=== PATIENT | female | born 1985 | race Caucasian/White ===

== ENCOUNTER 2019-08-17 07:22 | Inpatient (IN) ==
[2019-08-17] MEDS ORDERED: OXYTOCIN 30 UNITS/500 ML BAG IV PRN (07:56)
[2019-08-17] MEDS ORDERED: DINOPROSTONE 10 MG INSERT PV ONE ×2 (07:56→22:11)
[2019-08-17 08:18] LABS: Hematocrit (blood only) 37.4 % (37-47); Hemoglobin 12.7 g/dL (12.0-16.0); Mean Corpuscular Hemoglobin 30.1 pg (25-34); Mean Corpuscular Volume 88.6 fL (80-100); Mean Platelet Volume 10.1 fL (7.4-10.4); Platelet Count 250 K/uL (130-400); RDW Coefficient of Variation 14.3 % (11.5-14.5); RDW Standard Deviation 46.5 fL (36.4-46.3); Red Blood Count 4.22 M/uL (4.2-5.4); White Blood Count 12.62 K/uL (4.8-10.8)
--- NOTE | 2019-08-17 09:13 | Obstetrical Progress Note ---
Date of Service August 17, 2019 Assessment & Plan Admission and Anticipated Discharge Date Admission Date: August 17, 2019 Physical Exam Physical Exam: Admit Note 34 F P0000 at 38 weeks admitted for induction of labor for cholecystitis of and Class 3 obesity. GBS is negative. FHT Cat 1. Cervix 1/50/- 3/vertex/posterior/firm/intact. EFW 8 lbs. Cervidil 10 mg placed vaginally for cervical ripening. Results & Data ([facility]) Vital Signs (Past 12 Hours) Vital Signs Temp Pulse Resp BP 08/17/19 08:18 103 H 184/119 H 08/17/19 08:00 99 H 193/102 H 08/17/19 07:39 36.6 C 103 H 20 192/95 H
[2019-08-17 09:44] LABS: Alanine Aminotransferase 25 U/L (12-78); Albumin Level 2.6 gm/dl (3.4-5.0); Aspartate Aminotransferase 17 U/L (15-37); Bilirubin Direct < 0.1 mg/dl (0-0.2); Blood Urea Nitrogen 9 mg/dl (7-18); Calcium 8.9 mg/dl (8.5-10.1); Carbon Dioxide 21 mmol/L (21-32); Chloride 107 mmol/L (98-107); Creatinine Clr Calc Pharmacy 175.8 ml/min; Est GFR (African American) 135.6; Glucose 95 mg/dl (70-99); Potassium 3.9 mmol/L (3.5-5.1); Sodium 137 mmol/L (136-145); Uric Acid 4.5 mg/dl (2.6-7.2)
[2019-08-17 09:47] LABS: Albumin Globulin Ratio 0.6 (0.9-2); Alkaline Phosphatase 117 U/L (45-117); Bilirubin,Total 0.1 mg/dl (0.2-1); Globulin 4.1 gm/dl (2.5-4.0); Total Protein 6.7 gm/dl (6.4-8.2)
[2019-08-17] MEDS: CALCIUM CARBONATE 500 MG CHEWABLE TAB PO PRN (10:47)
[2019-08-17 11:14] LABS: Protein Creatinine Ratio Urine 0.3 (0-0.2); Total Protein Urine Random 45.8 mg/dl (0-11.9)
[2019-08-17] MEDS ORDERED: LABETALOL HCL 100 MG TAB PO SCH ×2 (14:00→21:00)
[2019-08-17] MEDS ORDERED: Nursing to Pharmacy Communication ONE (20:57)
[2019-08-17] MEDS: LABETALOL HCL 100 MG TAB PO SCH (21:19)
--- NOTE | 2019-08-17 22:27 | Obstetrical Progress Note ---
Date of Service August 17, 2019 Assessment & Plan Admission and Anticipated Discharge Date Admission Date: August 17, 2019 Subjective Pt dong well Induction for cholestasis in FHR; CAT1 Ctx; Minimmal VE; ft/post 2nd d Cervidil inserted ' Results & Data ([facility]) Vital Signs (Past 12 Hours) Vital Signs Temp Pulse Resp BP 08/17/19 21:58 86 117/61 08/17/19 21:19 92 H 186/110 H 08/17/19 21:18 99 H 190/119 H 08/17/19 19:27 36.9 C 18 08/17/19 19:26 82 170/88 H 08/17/19 18:24 36.7 C 78 20 187/108 H 08/17/19 15:00 169/89 H 08/17/19 14:59 88 175/98 H 08/17/19 13:55 79 165/101 H 08/17/19 12:57 36.7 C 76 20 186/104 H 08/17/19 11:38 36.8 C 85 171/97 H
[2019-08-18] MEDS: LABETALOL HCL 100 MG TAB PO SCH ×2 (08:56→23:04)
[2019-08-18] MEDS ORDERED: LABETALOL HCL 200 MG TAB PO SCH (09:00)
--- NOTE | 2019-08-18 10:34 | Obstetrical Progress Note ---
Date of Service August 18, 2019 Assessment & Plan Admission and Anticipated Discharge Date Admission Date: August 17, 2019 Physical Exam Genitourinary: OB Exam Abdomen: + irregular contractions Manual OB Exam: + cervical dilation 1 cm, + cervical effacement 60% and + station high OB Exam Monitor Tracing: + external FHT monitor used and + external uterine monitor used Cervidil pulled out Will allow to eat and then start PO Cytotec to continue ripening cervix Results & Data ([facility]) Vital Signs (Past 12 Hours) Vital Signs Temp Pulse Resp BP 08/18/19 09:51 97 H 155/86 H 08/18/19 07:56 36.8 C 20 08/18/19 07:33 94 H 144/87 H 08/18/19 05:23 36.6 C 18 08/18/19 04:53 83 129/67 08/18/19 03:00 36.4 C L 16 08/18/19 02:52 92 H 125/85 08/17/19 23:01 37.0 C 18
[2019-08-18] MEDS: miSOPROStoL 50 MCG TAB PO SCH ×3 (13:13→21:54)
[2019-08-18] MEDS ORDERED: COUGH DROP (SUGAR FREE) LOZ 24 LOZ/1 BOX BUCCAL ONE (17:34)
[2019-08-18] MEDS: ACETAMINOPHEN 500 MG TAB PO PRN ×2 (19:33→23:04)
[2019-08-19] MEDS: miSOPROStoL 50 MCG TAB PO SCH ×2 (03:32→03:42)
[2019-08-19] MEDS ORDERED: OXYTOCIN 30 UNITS/500 ML BAG IV PRN (08:22)
[2019-08-19] MEDS: LACTATED RINGER'S 1,000 ML IV PRN ×3 (09:28→19:26)
--- NOTE | 2019-08-19 09:29 | Obstetrical Progress Note ---
Date of Service August 19, 2019 Assessment & Plan Admission and Anticipated Discharge Date Admission Date: August 17, 2019 Physical Exam Genitourinary: OB Exam Abdomen: + vertex Manual OB Exam: + cervical dilation 2 cm and + cervical effacement 70% OB Exam Monitor Tracing: + external FHT monitor used, + external uterine monitor used, + category I and + normal FHT variability will start Oxytocin now with cervix no ripe Results & Data ([facility]) Vital Signs (Past 12 Hours) Vital Signs Temp Pulse Resp BP 08/19/19 09:19 88 142/86 H 08/19/19 07:17 93 H 134/81 08/19/19 04:35 36.6 C 76 18 151/83 H 08/18/19 23:01 80 135/68 08/18/19 23:00 36.4 C L
[2019-08-19] MEDS: LABETALOL HCL 100 MG TAB PO SCH ×2 (09:36→22:28)
--- NOTE | 2019-08-19 14:35 | Obstetrical Progress Note ---
Date of Service August 19, 2019 Assessment & Plan Admission and Anticipated Discharge Date Admission Date: August 17, 2019 Physical Exam Genitourinary: Manual OB Exam: + cervical dilation 2 cm, + cervical effacement 70%, + station -2 and + amniotic fluid clear OB Exam Monitor Tracing: + external FHT monitor used, + scalp electrode used, + external uterine monitor used, + category I and + normal FHT variability AROM with scalp lead due to inability to keep baby on monitor due to body habitus. Will continue with Oxytocin. plans for epidural. Results & Data ([facility]) Vital Signs (Past 12 Hours) Vital Signs Temp Pulse Resp BP 08/19/19 13:34 85 178/84 H 08/19/19 12:50 18 08/19/19 11:31 82 18 154/88 H 08/19/19 10:50 18 08/19/19 10:45 85 164/91 H 08/19/19 10:00 18 08/19/19 09:19 88 142/86 H 08/19/19 09:08 18 08/19/19 07:17 93 H 134/81 08/19/19 04:35 36.6 C 76 18 151/83 H
[2019-08-19] MEDS ORDERED: BUPIVACAINE 0.25% 30 ML VIAL ONE (16:12)
[2019-08-19] MEDS ORDERED: ePHEDrine sulfate 50 MG/ML AMP ONE (16:12)
[2019-08-19] MEDS ORDERED: fentaNYL citrate 100 MCG/2 ML VIAL ONE (16:12)
[2019-08-19] MEDS ORDERED: fentaNYL 2MCG/ML ROPIV 1.25MG/ML 100 ML BAG EPI ONE (16:13)
--- NOTE | 2019-08-19 17:06 | Anesthesiology Consultation ---
Date of Service August 19, 2019 Assessment & Plan (1) Encounter for pre-operative examination: Chart Review Chart Review: Patient NOT seen in Pre Admission Testing and Acceptable Risk for Labor Epidural Consults Requested none ASA ASA2 Proposed Anesthesia Anesthesia Type: Labor Epidural Risk / Benefits Reviewed With: PT / POA / Parent / Guardian, Accepts Plan and Informed Consent Obtained History Height/Weight Height: 5 ft 7 in Weight: 128.82 kg Allergies Allergy/AdvReac Type Severity Reaction Status Date / Time No Known Allergies Allergy Verified 08/17/19 08:09 Medications Home Medications Medication Instructions Recorded Confirmed Last Taken vit-iron fum-folic ac 1 tab PO DAILY 08/17/19 08/17/19 08/17/19 [ Vitamin] ursodiol 300 mg PO BID 08/17/19 08/17/19 08/17/19 07:00 Active Medications Generic Name Dose Route Start Last Admin Trade Name Freq PRN Reason Stop Dose Admin Acetaminophen 500 mg 08/18/19 19:10 08/18/19 23:04 Tylenol PO 09/17/19 19:09 500 mg Q4H PRN Administration Headache Calcium Carbonate 500 mg 08/17/19 09:00 08/17/19 10:47 Tums PO 09/16/19 08:59 500 mg Q2H PRN Administration Indigestion Lactated Ringer's 1,000 mls @ 125 mls/hr 08/17/19 07:56 08/19/19 17:03 Lr IV 08/20/19 07:55 125 mls/hr .Q8H PRN Infusion L&D Protocol Protocol Oxytocin 30 units in 500 mls @ 11 mls/hr 08/19/19 08:22 08/19/19 14:35 Pitocin IV 08/21/19 08:21 0.66 units/hr .Q24H PRN 11 mls/hr Labor Induction/Augmentation Titration Protocol 0.66 UNITS/HR Labetalol HCl 200 mg 08/17/19 21:15 08/19/19 09:36 Normodyne PO 09/17/19 09:01 200 mg BID REBEL Administration Misoprostol 50 mcg 08/18/19 11:00 08/19/19 03:42 Cytotec PO 09/17/19 10:59 Not Given Q4H REBEL NPO Date Last Intake of Fluids: 08/19/19 Time Last Intake of Fluids: 17:02 Date Last Intake of Solids: 08/19/19 Time Last Intake of Solids: 09:00 Past Medical History Medical History Cholestasis during Polycystic disease, ovaries Exercise / Class Metabolic Activity II 4-5 Yardwork/Stairs/Walk up hill Past Surgical History Surgical History History of tonsillectomy Past Anesthesia History No Hx of Anesthesia Complications History of PONV No Hx of PONV Social History Smoking Status: Former smoker Hx Alcohol Use: No Hx Substance Use: No Review of Systems Patient denies history of abnormal bleeding or bleeding disorder. Patient denies active use of anticoagulants other than low dose aspirin. Patient denies numbness, tingling or weakness in lower extremities. Physical Exam Vital Signs Last Vital Signs Temp 36.5 C 08/19/19 17:00 Pulse 82 08/19/19 16:59 Resp 18 08/19/19 17:00 BP 189/104 H 08/19/19 16:59 Pulse Ox 98 08/19/19 16:59 Constitutional + morbidly obese (Gravid uterus) and + obese ENMT Mouth: no TMJ abnormality and oral opening not small Thyromental Distance: > or= 3.5 Finger Breadths Mallampati Class: III Mouth / Teeth: 1. Worn down Neck normal visual inspection; neck extension not limited Respiratory normal respiratory effort Auscultation: lungs clear to auscultation bilaterally Cardiovascular Rate/Rhythm: regular rate and regular rhythm Heart Sounds: no murmur Neurologic moves all extremities Psychiatric Orientation: alert and oriented x 3 Testing Laboratory Results 08/17/19 08:04 08/17/19 09:11
[2019-08-19] MEDS ORDERED: NALOXONE HCL 1 MG in SODIUM CHLORIDE 0.9% 1000ML 1,000 ML IV PRN (18:00)
[2019-08-19] MEDS ORDERED: NALBUPHINE HCL INJ 10 MG/ML AMP IV PRN (18:00)
[2019-08-19] MEDS ORDERED: ONDANSETRON INJ 2 MG/ML 2 ML VIAL IV PRN (18:00)
[2019-08-19] MEDS ORDERED: fentaNYL 2MCG/ML ROPIV 1.25MG/ML 100 ML BAG EPI PRN (18:00)
[2019-08-19] MEDS ORDERED: DiphenhydrAMINE HCL 50 MG/ML VIAL IV PRN (18:00)
[2019-08-19] MEDS ORDERED: NALOXONE HCL 0.4 MG/1 ML VIAL/CARP IV PRN (18:00)
[2019-08-19] MEDS ORDERED: ePHEDrine sulfate 50 MG/ML AMP IV PRN (18:00)
[2019-08-19] MEDS: CALCIUM CARBONATE 500 MG CHEWABLE TAB PO PRN (18:21)
--- NOTE | 2019-08-19 18:42 | Obstetrical Progress Note ---
Date of Service August 19, 2019 Assessment & Plan Admission and Anticipated Discharge Date Admission Date: August 17, 2019 Physical Exam Genitourinary: Manual OB Exam: + cervical dilation 3 cm, + cervical effacement 90%, + station -2 and + amniotic fluid clear OB Exam Monitor Tracing: + scalp electrode used, + external uterine monitor used, + category I and + normal FHT variability Results & Data ([facility]) Vital Signs (Past 12 Hours) Vital Signs Temp Pulse Resp BP Pulse Ox 08/19/19 18:39 81 100 08/19/19 18:34 80 98 08/19/19 18:29 73 99 08/19/19 18:28 78 135/85 08/19/19 18:24 86 98 08/19/19 18:19 75 100 08/19/19 18:14 82 99 08/19/19 18:12 77 140/83 08/19/19 18:09 81 140/80 99 08/19/19 18:05 77 139/82 08/19/19 18:04 81 99 08/19/19 18:03 78 139/83 08/19/19 18:00 77 137/85 08/19/19 17:59 78 100 08/19/19 17:57 81 132/82 08/19/19 17:54 79 141/87 H 98 08/19/19 17:51 82 144/77 H 08/19/19 17:49 85 99 08/19/19 17:48 96 H 111/75 08/19/19 17:45 82 177/95 H 08/19/19 17:44 83 98 08/19/19 17:42 90 180/96 H 08/19/19 17:39 81 99 08/19/19 17:38 79 182/104 H 08/19/19 17:34 82 99 08/19/19 17:29 79 98 08/19/19 17:24 79 98 08/19/19 17:19 85 100 08/19/19 17:14 88 99 08/19/19 17:09 91 H 99 08/19/19 17:04 88 99 08/19/19 17:00 36.5 C 18 08/19/19 16:59 82 189/104 H 98 08/19/19 16:54 82 99 08/19/19 16:48 86 100 08/19/19 16:43 84 100 08/19/19 16:38 88 99 08/19/19 14:37 88 192/95 H 08/19/19 14:30 36.6 C 18 08/19/19 13:34 85 178/84 H 08/19/19 12:50 18 08/19/19 11:31 82 18 154/88 H 08/19/19 10:50 18 08/19/19 10:45 85 164/91 H 08/19/19 10:00 18 08/19/19 09:19 88 142/86 H 08/19/19 09:08 18 08/19/19 07:17 93 H 134/81
--- NOTE | 2019-08-19 21:08 | Obstetrical Progress Note ---
Date of Service August 19, 2019 Assessment & Plan Admission and Anticipated Discharge Date Admission Date: August 17, 2019 Physical Exam Genitourinary: Manual OB Exam: + cervical dilation 4 cm, + cervical effacement 90%, + station -2 and + amniotic fluid clear OB Exam Monitor Tracing: + scalp electrode used, + external uterine monitor used and + category I Results & Data ([facility]) Vital Signs (Past 12 Hours) Vital Signs Temp Pulse Resp BP Pulse Ox 08/19/19 21:04 87 99 08/19/19 20:59 74 100 08/19/19 20:57 74 148/70 H 08/19/19 20:54 83 100 08/19/19 20:49 72 100 08/19/19 20:44 78 100 08/19/19 20:42 78 140/67 08/19/19 20:39 74 100 08/19/19 20:34 72 100 08/19/19 20:29 77 100 08/19/19 20:27 74 132/67 08/19/19 20:24 74 100 08/19/19 20:19 74 100 08/19/19 20:14 70 100 08/19/19 20:12 72 151/72 H 08/19/19 20:09 72 100 08/19/19 20:04 70 100 08/19/19 19:59 72 100 08/19/19 19:57 71 144/70 H 08/19/19 19:54 77 100 08/19/19 19:49 74 100 08/19/19 19:44 80 100 08/19/19 19:42 74 143/70 H 08/19/19 19:39 76 100 08/19/19 19:34 70 100 08/19/19 19:29 79 100 08/19/19 19:27 75 138/67 08/19/19 19:24 80 100 08/19/19 19:19 99 H 98 08/19/19 19:14 81 100 08/19/19 19:12 71 142/70 H 08/19/19 19:09 77 97 08/19/19 19:04 89 98 08/19/19 19:00 36.5 C 18 08/19/19 18:59 81 98 08/19/19 18:57 73 144/86 H 08/19/19 18:54 78 100 08/19/19 18:49 75 99 08/19/19 18:44 89 100 08/19/19 18:43 73 140/85 08/19/19 18:39 81 100 08/19/19 18:34 80 98 08/19/19 18:29 73 99 08/19/19 18:28 78 135/85 08/19/19 18:24 86 98 08/19/19 18:19 75 100 08/19/19 18:14 82 99 08/19/19 18:12 77 140/83 08/19/19 18:09 81 140/80 99 08/19/19 18:05 77 139/82 08/19/19 18:04 81 99 08/19/19 18:03 78 139/83 08/19/19 18:00 77 137/85 08/19/19 17:59 78 100 08/19/19 17:57 81 132/82 08/19/19 17:54 79 141/87 H 98 08/19/19 17:51 82 144/77 H 08/19/19 17:49 85 99 08/19/19 17:48 96 H 111/75 08/19/19 17:45 82 177/95 H 08/19/19 17:44 83 98 08/19/19 17:42 90 180/96 H 08/19/19 17:39 81 99 08/19/19 17:38 79 182/104 H 08/19/19 17:34 82 99 08/19/19 17:29 79 98 08/19/19 17:24 79 98 08/19/19 17:19 85 100 08/19/19 17:14 88 99 08/19/19 17:09 91 H 99 08/19/19 17:04 88 99 08/19/19 17:00 36.5 C 18 08/19/19 16:59 82 189/104 H 98 08/19/19 16:54 82 99 08/19/19 16:48 86 100 08/19/19 16:43 84 100 08/19/19 16:38 88 99 08/19/19 14:37 88 192/95 H 08/19/19 14:30 36.6 C 18 08/19/19 13:34 85 178/84 H 08/19/19 12:50 18 08/19/19 11:31 82 18 154/88 H 08/19/19 10:50 18 08/19/19 10:45 85 164/91 H 08/19/19 10:00 18 08/19/19 09:19 88 142/86 H 08/19/19 09:08 18
--- NOTE | 2019-08-19 23:32 | Obstetrical Progress Note ---
Date of Service August 19, 2019 Assessment & Plan Admission and Anticipated Discharge Date Admission Date: August 17, 2019 Physical Exam Genitourinary: Manual OB Exam: + cervical dilation 4 cm and 5 cm, + cervical effacement 90%, + station -2 and + amniotic fluid clear OB Exam Monitor Tracing: + scalp electrode used, + intra-uterine pressure catheter used and + category I IUPC inserted to better monitor contractions Results & Data ([facility]) Vital Signs (Past 12 Hours) Vital Signs Temp Pulse Resp BP Pulse Ox 08/19/19 23:29 107 H 97 08/19/19 23:24 78 98 08/19/19 23:19 77 97 08/19/19 23:14 80 96 08/19/19 23:12 74 133/63 08/19/19 23:09 78 96 08/19/19 23:04 78 99 08/19/19 22:59 88 99 08/19/19 22:57 74 131/58 L 08/19/19 22:54 90 99 08/19/19 22:49 80 96 08/19/19 22:44 80 98 08/19/19 22:42 85 151/70 H 08/19/19 22:39 88 98 08/19/19 22:34 80 98 08/19/19 22:29 84 98 08/19/19 22:27 79 153/72 H 08/19/19 22:24 85 98 08/19/19 22:19 82 100 08/19/19 22:14 83 97 08/19/19 22:13 84 145/70 H 08/19/19 22:09 80 98 08/19/19 22:04 83 98 08/19/19 21:59 78 98 08/19/19 21:57 83 145/70 H 08/19/19 21:54 81 97 08/19/19 21:49 78 98 08/19/19 21:44 77 98 08/19/19 21:42 88 144/67 H 08/19/19 21:39 93 H 98 08/19/19 21:34 77 99 08/19/19 21:29 74 99 08/19/19 21:27 78 139/63 08/19/19 21:24 78 99 08/19/19 21:19 78 99 08/19/19 21:14 73 99 08/19/19 21:12 68 138/58 L 08/19/19 21:09 75 99 08/19/19 21:04 87 99 08/19/19 21:00 36.9 C 18 08/19/19 20:59 74 100 08/19/19 20:57 74 148/70 H 08/19/19 20:54 83 100 08/19/19 20:49 72 100 08/19/19 20:44 78 100 08/19/19 20:42 78 140/67 08/19/19 20:39 74 100 08/19/19 20:34 72 100 08/19/19 20:29 77 100 08/19/19 20:27 74 132/67 08/19/19 20:24 74 100 08/19/19 20:19 74 100 08/19/19 20:14 70 100 08/19/19 20:12 72 151/72 H 08/19/19 20:09 72 100 08/19/19 20:04 70 100 08/19/19 19:59 72 100 08/19/19 19:57 71 144/70 H 08/19/19 19:54 77 100 08/19/19 19:49 74 100 08/19/19 19:44 80 100 08/19/19 19:42 74 143/70 H 08/19/19 19:39 76 100 08/19/19 19:34 70 100 08/19/19 19:29 79 100 08/19/19 19:27 75 138/67 08/19/19 19:24 80 100 08/19/19 19:19 99 H 98 08/19/19 19:14 81 100 08/19/19 19:12 71 142/70 H 08/19/19 19:09 77 97 08/19/19 19:04 89 98 08/19/19 19:00 36.5 C 18 08/19/19 18:59 81 98 08/19/19 18:57 73 144/86 H 08/19/19 18:54 78 100 08/19/19 18:49 75 99 08/19/19 18:44 89 100 08/19/19 18:43 73 140/85 08/19/19 18:39 81 100 08/19/19 18:34 80 98 08/19/19 18:29 73 99 08/19/19 18:28 78 135/85 08/19/19 18:24 86 98 08/19/19 18:19 75 100 08/19/19 18:14 82 99 08/19/19 18:12 77 140/83 08/19/19 18:09 81 140/80 99 08/19/19 18:05 77 139/82 08/19/19 18:04 81 99 08/19/19 18:03 78 139/83 08/19/19 18:00 77 137/85 08/19/19 17:59 78 100 08/19/19 17:57 81 132/82 08/19/19 17:54 79 141/87 H 98 08/19/19 17:51 82 144/77 H 08/19/19 17:49 85 99 08/19/19 17:48 96 H 111/75 08/19/19 17:45 82 177/95 H 08/19/19 17:44 83 98 08/19/19 17:42 90 180/96 H 08/19/19 17:39 81 99 08/19/19 17:38 79 182/104 H 08/19/19 17:34 82 99 08/19/19 17:29 79 98 08/19/19 17:24 79 98 08/19/19 17:19 85 100 08/19/19 17:14 88 99 08/19/19 17:09 91 H 99 08/19/19 17:04 88 99 08/19/19 17:00 36.5 C 18 08/19/19 16:59 82 189/104 H 98 08/19/19 16:54 82 99 08/19/19 16:48 86 100 08/19/19 16:43 84 100 08/19/19 16:38 88 99 08/19/19 14:37 88 192/95 H 08/19/19 14:30 36.6 C 18 08/19/19 13:34 85 178/84 H 08/19/19 12:50 18
[2019-08-20] MEDS ORDERED: Nursing to Pharmacy Communication ONE ×2 (00:10→02:01)
[2019-08-20] MEDS ORDERED: BUPIVACAINE 0.25% 30 ML VIAL ONE (01:14)
[2019-08-20] MEDS: LACTATED RINGER'S 1,000 ML IV PRN (01:32)
--- NOTE | 2019-08-20 01:38 | Communication Note ---
Date of Service: August 20, 2019 Epidural dosed for increasing pain in pelvis with contractions. Good sensory level to ice, but significantly worse on the non dependent side. Patient recommended to flip to opposite side. Epidural redosed with 10cc of 0.125% bupivicane by hand. Epidural lockout time decreased. She did moderately improve her pain. Patient entering transitional phase, management per OB.
--- NOTE | 2019-08-20 01:58 | Obstetrical Progress Note ---
Date of Service August 20, 2019 Assessment & Plan Admission and Anticipated Discharge Date Admission Date: August 17, 2019 Physical Exam Genitourinary: Manual OB Exam: + cervical dilation 9 cm, + cervical effacement 100%, + station 0 and + amniotic fluid clear OB Exam Monitor Tracing: + scalp electrode used, + intra-uterine pressure catheter used and + category I internal scalp monitor re-applied due to 1st lead coming off Results & Data ([facility]) Vital Signs (Past 12 Hours) Vital Signs Temp Pulse Resp BP Pulse Ox 08/20/19 01:55 83 158/83 H 08/20/19 01:54 84 100 08/20/19 01:52 77 161/85 H 08/20/19 01:49 78 157/72 H 96 08/20/19 01:46 77 150/67 H 08/20/19 01:44 80 94 08/20/19 01:43 85 149/74 H 08/20/19 01:40 85 153/76 H 08/20/19 01:39 86 100 08/20/19 01:37 82 152/77 H 08/20/19 01:34 93 H 98 08/20/19 01:31 82 161/82 H 08/20/19 01:29 95 H 95 08/20/19 01:28 92 H 162/81 H 08/20/19 01:25 90 162/94 H 08/20/19 01:24 88 97 08/20/19 01:22 95 H 165/86 H 08/20/19 01:19 98 H 155/78 H 98 08/20/19 01:17 95 H 87 L 08/20/19 01:16 91 H 180/89 H 08/20/19 01:14 95 H 96 08/20/19 01:12 90 181/93 H 08/20/19 01:09 90 95 08/20/19 01:04 85 96 08/20/19 00:59 102 H 168/85 H 98 08/20/19 00:56 87 94 08/20/19 00:54 109 H 97 08/20/19 00:51 87 94 08/20/19 00:49 100 H 97 08/20/19 00:44 87 181/83 H 95 08/20/19 00:39 93 H 97 08/20/19 00:34 104 H 98 08/20/19 00:29 87 97 08/20/19 00:28 87 178/80 H 08/20/19 00:24 103 H 99 08/20/19 00:19 87 98 08/20/19 00:14 92 H 97 08/20/19 00:12 89 145/85 H 08/20/19 00:09 93 H 98 08/20/19 00:04 90 98 08/19/19 23:59 86 97 08/19/19 23:57 85 138/79 08/19/19 23:54 81 96 08/19/19 23:49 92 H 99 08/19/19 23:44 91 H 98 08/19/19 23:43 36.9 C 18 08/19/19 23:42 93 H 145/73 H 08/19/19 23:39 82 96 08/19/19 23:34 86 96 08/19/19 23:29 107 H 97 08/19/19 23:24 78 98 08/19/19 23:19 77 97 08/19/19 23:14 80 96 08/19/19 23:12 74 133/63 08/19/19 23:09 78 96 08/19/19 23:04 78 99 08/19/19 22:59 88 99 08/19/19 22:57 74 131/58 L 08/19/19 22:54 90 99 08/19/19 22:49 80 96 08/19/19 22:44 80 98 08/19/19 22:42 85 151/70 H 08/19/19 22:39 88 98 08/19/19 22:34 80 98 08/19/19 22:29 84 98 08/19/19 22:27 79 153/72 H 08/19/19 22:24 85 98 08/19/19 22:19 82 100 08/19/19 22:14 83 97 08/19/19 22:13 84 145/70 H 08/19/19 22:09 80 98 08/19/19 22:04 83 98 08/19/19 21:59 78 98 08/19/19 21:57 83 145/70 H 08/19/19 21:54 81 97 08/19/19 21:49 78 98 08/19/19 21:44 77 98 08/19/19 21:42 88 144/67 H 08/19/19 21:39 93 H 98 08/19/19 21:34 77 99 08/19/19 21:29 74 99 08/19/19 21:27 78 139/63 08/19/19 21:24 78 99 08/19/19 21:19 78 99 08/19/19 21:14 73 99 08/19/19 21:12 68 138/58 L 08/19/19 21:09 75 99 08/19/19 21:04 87 99 08/19/19 21:00 36.9 C 18 08/19/19 20:59 74 100 08/19/19 20:57 74 148/70 H 08/19/19 20:54 83 100 08/19/19 20:49 72 100 08/19/19 20:44 78 100 08/19/19 20:42 78 140/67 08/19/19 20:39 74 100 08/19/19 20:34 72 100 08/19/19 20:29 77 100 08/19/19 20:27 74 132/67 08/19/19 20:24 74 100 08/19/19 20:19 74 100 08/19/19 20:14 70 100 08/19/19 20:12 72 151/72 H 08/19/19 20:09 72 100 08/19/19 20:04 70 100 08/19/19 19:59 72 100 08/19/19 19:57 71 144/70 H 08/19/19 19:54 77 100 08/19/19 19:49 74 100 08/19/19 19:44 80 100 08/19/19 19:42 74 143/70 H 08/19/19 19:39 76 100 08/19/19 19:34 70 100 08/19/19 19:29 79 100 08/19/19 19:27 75 138/67 08/19/19 19:24 80 100 08/19/19 19:19 99 H 98 08/19/19 19:14 81 100 08/19/19 19:12 71 142/70 H 08/19/19 19:09 77 97 08/19/19 19:04 89 98 08/19/19 19:00 36.5 C 18 08/19/19 18:59 81 98 08/19/19 18:57 73 144/86 H 08/19/19 18:54 78 100 08/19/19 18:49 75 99 08/19/19 18:44 89 100 08/19/19 18:43 73 140/85 08/19/19 18:39 81 100 08/19/19 18:34 80 98 08/19/19 18:29 73 99 08/19/19 18:28 78 135/85 08/19/19 18:24 86 98 08/19/19 18:19 75 100 08/19/19 18:14 82 99 08/19/19 18:12 77 140/83 08/19/19 18:09 81 140/80 99 08/19/19 18:05 77 139/82 08/19/19 18:04 81 99 08/19/19 18:03 78 139/83 08/19/19 18:00 77 137/85 08/19/19 17:59 78 100 08/19/19 17:57 81 132/82 08/19/19 17:54 79 141/87 H 98 08/19/19 17:51 82 144/77 H 08/19/19 17:49 85 99 08/19/19 17:48 96 H 111/75 08/19/19 17:45 82 177/95 H 08/19/19 17:44 83 98 08/19/19 17:42 90 180/96 H 08/19/19 17:39 81 99 08/19/19 17:38 79 182/104 H 08/19/19 17:34 82 99 08/19/19 17:29 79 98 08/19/19 17:24 79 98 08/19/19 17:19 85 100 08/19/19 17:14 88 99 08/19/19 17:09 91 H 99 08/19/19 17:04 88 99 08/19/19 17:00 36.5 C 18 08/19/19 16:59 82 189/104 H 98 08/19/19 16:54 82 99 08/19/19 16:48 86 100 08/19/19 16:43 84 100 08/19/19 16:38 88 99 08/19/19 14:37 88 192/95 H 08/19/19 14:30 36.6 C 18
--- NOTE | 2019-08-20 06:33 | Delivery Summary ---
Vaginal Delivery Summary Date of Service August 20, 2019 Vaginal Delivery Summary Delivery Note live female over intact perineum with nuchal cord x1 reduced at delivery. Apgars 8/9 with weight pending. Cord blood obtained followed by spontaneous delivery of intact placenta. No tears. EBL 100 ml. Final sponge and instrument count are correct. Mom and baby stable.
[2019-08-20] MEDS ORDERED: BENZOCAINE 20% AER SPR 82.5 GM CAN EXT PRN (06:38)
[2019-08-20] MEDS ORDERED: HYDROCORTISONE ACETATE 25 MG SUPP PR PRN (06:38)
[2019-08-20] MEDS ORDERED: DIPHTHERIA/TETANUS/PERTUSSIS 0.5 ML SYR/VIAL IM ONE (06:38)
[2019-08-20] MEDS ORDERED: OXYTOCIN 30 UNITS/500 ML BAG IV PRN (06:38)
[2019-08-20] MEDS ORDERED: SUPERCREAM 0.870% 15 GM JAR EXT PRN (06:38)
[2019-08-20] MEDS ORDERED: ACETAMINOPHEN 325 MG TAB PO PRN (06:38)
[2019-08-20] MEDS: DOCUSATE SODIUM 100 MG CAP PO SCH ×2 (08:17→21:13)
[2019-08-20] MEDS: FERROUS SULFATE 325 MG TAB PO SCH (08:17)
[2019-08-20] MEDS: PRENATAL VITAMIN 1 TAB PO SCH (08:17)
--- NOTE | 2019-08-20 08:22 | Anesthesia Procedure Note ---
Date of Service August 20, 2019 Anesthesia Post Epidural Note Vital Signs Vital Signs: Temp Pulse Resp BP Pulse Ox 36.8 C 103 H 20 165/80 H 96 08/20/19 04:04 08/20/19 08:14 08/20/19 07:59 08/20/19 08:14 08/20/19 06:19 Pain Intensity Abdomen: Pain Intensity: 1 Notes Mental Status: alert / awake / arousable and participated in evaluation Nausea / Vomiting: adequately controlled Pain: adequately controlled Airway Patency, RR, SpO2: stable & adequate BP & HR: stable & adequate Hydration State: stable & adequate Neuraxial Anesthesia: was administered and sensory block is resolving Anesthetic Complications: no major complications apparent and Pt Satisfied with anesthetic care Epidural: Removed without complications and With tip intact
[2019-08-20] MEDS ORDERED: NON-FORMULARY MEDICATION (Prenatal Vit-Iron Fum-Folic Ac [Prenatal Vitamin] 1 TAB) PO SCH (09:00)
[2019-08-20] MEDS: LABETALOL HCL 100 MG TAB PO SCH ×3 (09:11→21:12)
[2019-08-20] MEDS: IBUPROFEN 600 MG TAB PO PRN (22:39)
[2019-08-21 06:08] LABS: Hematocrit (blood only) 29.7 % (37-47); Hemoglobin 9.9 g/dL (12.0-16.0); Mean Corpuscular Hgb Conc 33.3 g/dL (32-36); Mean Platelet Volume 9.8 fL (7.4-10.4); Platelet Count 175 K/uL (130-400); RDW Coefficient of Variation 14.7 % (11.5-14.5); RDW Standard Deviation 48.1 fL (36.4-46.3)
[2019-08-21] MEDS: PRENATAL VITAMIN 1 TAB PO SCH (08:32)
[2019-08-21] MEDS: DOCUSATE SODIUM 100 MG CAP PO SCH ×2 (08:32→20:08)
[2019-08-21] MEDS: LABETALOL HCL 100 MG TAB PO SCH ×2 (08:33→20:08)
[2019-08-21] MEDS: IBUPROFEN 600 MG TAB PO PRN ×4 (08:33→21:43)
--- NOTE | 2019-08-21 08:35 | Obstetrical Progress Note ---
Date of Service August 21, 2019 Assessment & Plan Admission and Anticipated Discharge Date Admission Date: August 17, 2019 Subjective Patient is seen and examined. She feels well, no complaints. Ambulating without dizziness Voiding without difficulty Tolerating regular diet with out N&V Bleeding is minimal No fever/ chills/ CP/ SOB/ N&V/ Leg pain/ [place]/ Chnage in vision Breast feeding without problems Vital Signs Temp Pulse Resp BP 08/21/19 04:15 36.6 C 83 18 133/88 08/20/19 23:15 36.5 C 92 H 18 152/84 H Lab Results 08/17/19 08/17/19 08/17/19 Range/Units 08:04 09:11 09:11 WBC 12.62 H (4.8-10.8) K/uL RBC 4.22 (4.2-5.4) M/uL Hgb 12.7 (12.0-16.0) g/dL Hct 37.4 (37-47) % MCV 88.6 (80-100) fL MCH 30.1 (25-34) pg MCHC 34.0 (32-36) g/dL RDW Std Deviation 46.5 H (36.4-46.3) fL RDW Coeff of Steve 14.3 (11.5-14.5) % Plt Count 250 (130-400) K/uL MPV 10.1 (7.4-10.4) fL Sodium 137 (136-145) mmol/L Potassium 3.9 (3.5-5.1) mmol/L Chloride 107 (98-107) mmol/L Carbon Dioxide 21 (21-32) mmol/L Anion Gap 9.0 (3-11) BUN 9 (7-18) mg/dl Creatinine 0.63 (0.6-1.2) mg/dl Est Cr Clr Drug Dosing 175.8 ml/min Est GFR ( Amer) 135.6 Est GFR (Non-Af Amer) 117.0 BUN/Creatinine Ratio 14.0 (10-20) Glucose 95 (70-99) mg/dl Uric Acid 4.5 (2.6-7.2) mg/dl Calcium 8.9 (8.5-10.1) mg/dl Total Bilirubin 0.1 L (0.2-1) mg/dl Direct Bilirubin < 0.1 (0-0.2) mg/dl AST 17 (15-37) U/L ALT 25 (12-78) U/L Alkaline Phosphatase 117 (45-117) U/L Lactate Dehydrogenase 181 (84-246) U/L Total Protein 6.7 (6.4-8.2) gm/dl Albumin 2.6 L (3.4-5.0) gm/dl Globulin 4.1 H (2.5-4.0) gm/dl Albumin/Globulin Ratio 0.6 L (0.9-2) Ur Random Creatinine mg/dl U Random Total Protein (0-11.9) mg/dl Protein/Creatinin Ratio (0-0.2) 08/17/19 08/21/19 Range/Units 10:20 05:45 WBC 11.10 H (4.8-10.8) K/uL RBC 3.30 L (4.2-5.4) M/uL Hgb 9.9 L (12.0-16.0) g/dL Hct 29.7 L (37-47) % MCV 90.0 (80-100) fL MCH 30.0 (25-34) pg MCHC 33.3 (32-36) g/dL RDW Std Deviation 48.1 H (36.4-46.3) fL RDW Coeff of Steve 14.7 H (11.5-14.5) % Plt Count 175 (130-400) K/uL MPV 9.8 (7.4-10.4) fL Sodium (136-145) mmol/L Potassium (3.5-5.1) mmol/L Chloride (98-107) mmol/L Carbon Dioxide (21-32) mmol/L Anion Gap (3-11) BUN (7-18) mg/dl Creatinine (0.6-1.2) mg/dl Est Cr Clr Drug Dosing ml/min Est GFR ( Amer) Est GFR (Non-Af Amer) BUN/Creatinine Ratio (10-20) Glucose (70-99) mg/dl Uric Acid (2.6-7.2) mg/dl Calcium (8.5-10.1) mg/dl Total Bilirubin (0.2-1) mg/dl Direct Bilirubin (0-0.2) mg/dl AST (15-37) U/L ALT (12-78) U/L Alkaline Phosphatase (45-117) U/L Lactate Dehydrogenase (84-246) U/L Total Protein (6.4-8.2) gm/dl Albumin (3.4-5.0) gm/dl Globulin (2.5-4.0) gm/dl Albumin/Globulin Ratio (0.9-2) Ur Random Creatinine 137.0 mg/dl U Random Total Protein 45.8 H (0-11.9) mg/dl Protein/Creatinin Ratio 0.3 H (0-0.2) PE: General: Alert, orientedx3, NAD Abd: soft, NT, fundus firm, below Umbilicus Perineum intact, Lochia rubra minimal Ext; NT, no edema AP: 34 yo s/p , ppd# 1 VSS Afebrile doing well Continue routine care All questions were answered D/C home tomorrow Results & Data ([facility]) Vital Signs (Past 12 Hours) Vital Signs Temp Pulse Resp BP 08/21/19 04:15 36.6 C 83 18 133/88 08/20/19 23:15 36.5 C 92 H 18 152/84 H
[2019-08-21] MEDS: FERROUS SULFATE 325 MG TAB PO SCH (08:37)
[2019-08-21] MEDS ORDERED: bisacodyL 5 MG TABEC PO SCH (20:00)
[2019-08-22 07:25] LABS: Hematocrit (blood only) 30.3 % (37-47)
[2019-08-22] MEDS: DOCUSATE SODIUM 100 MG CAP PO SCH (08:21)
[2019-08-22] MEDS: FERROUS SULFATE 325 MG TAB PO SCH (08:21)
[2019-08-22] MEDS: PRENATAL VITAMIN 1 TAB PO SCH (08:21)
[2019-08-22] MEDS: LABETALOL HCL 100 MG TAB PO SCH (08:22)
--- NOTE | 2019-08-22 08:42 | Obstetrical Progress Note ---
Date of Service August 22, 2019 Assessment & Plan Admission and Anticipated Discharge Date Admission Date: August 17, 2019 Physical Exam Physical Exam: abdomen soft and non tender no calf tenderness ambulating well vaginal bleeding scant hgb 10.0 Results & Data ([facility]) Vital Signs (Past 12 Hours) Vital Signs Temp Pulse Resp BP Pulse Ox 08/22/19 07:25 36.6 C 90 18 140/91 99 08/22/19 00:05 36.8 C 88 16 118/72
[2019-08-22] MEDS ORDERED: bisacodyL 10 MG SUPP PR PRN (09:00)
== END 2019-08-22 11:20 | disposition home or self-care (01) | DRG 807 ==
LOC: 4S1 07:22 → 4S2 08-20 12:25

== ENCOUNTER 2020-01-07 03:59 | Observation (INO) ==
[2020-01-07] MEDS ORDERED: ONDANSETRON INJ 2 MG/ML 2 ML VIAL IV STA (04:27)
[2020-01-07] MEDS ORDERED: KETOROLAC TROMETHAMINE 15 MG/ML VIAL IV STA (04:27)
--- NOTE | 2020-01-07 04:33 | Emergency Department Note ---
History of Present Illness General Chief complaint: Abdominal Pain Stated complaint: SEVERE GALLBLADDER PAIN Time Seen by Provider: 01/07/20 04:18 Source: patient Mode of arrival: ambulatory Limitations: no limitations History of Present Illness Maximum Pain Intensity: 8 This patient is a 34-year-old female who presents to the emergency department for evaluation of abdominal pain. The patient reports that she has known gallstones and feels like she is having a gallbladder attack. Her pain started about 4 hours prior to arrival. She has been tracking her diet very closely and the only thing that she can think of to cause her symptoms was cream cheese. She has been nauseous but has not vomited. Her pain is in the right upper quadrant and she rates her discomfort an 8/10. She took 2 Tylenol and Tums wit hout relief. Nothing makes the pain better or worse. Patient is 4.5 months and states that she started having problems with gallstones after giving . She has had outpatient ultrasound, CT scan and MRI per patient. She has been seen by a general surgeon and is trying to delay cholecystectomy by making dietary changes. She reports a history of PCOS. She denies any history of abdominal surgeries. Home Medications Home Medications Medication Instructions Recorded Confirmed Type escitalopram oxalate 10 mg PO DAILY 01/07/20 01/07/20 History levonorgestrel-ethinyl estrad 1 tab PO DAILY 01/07/20 01/07/20 History [[place] 28] metformin 500 mg PO DAILY 01/07/20 01/07/20 History Allergies Allergy/AdvReac Type Severity Reaction Status Date / Time No Known Allergies Allergy Verified 01/07/20 05:09 Past Med/Surg History Medical History Cholestasis during Polycystic disease, ovaries Surgical History History of tonsillectomy Social History Preferred Language: Ukrainian Communication Ability: Effective Beliefs That Will Affect Care: None marital status: Current Living Situation: Spouse Current Living Situation Comment: Willi Feels Safe at Home: Yes Smoking Status: Never smoker Second Hand Exposure: No ; Hx Alcohol Use: No Hx Substance Use: No Review of Systems A total of 10 systems reviewed and were otherwise negative Physical Exam Vital Signs Vital Signs - 24 hr 01/07/20 04:09 01/07/20 05:59 Temperature 36.7 C Temperature Source Oral Pulse Rate 74 Pulse Rate [Right Finger] 67 Respiratory Rate 24 20 Respiratory Effort / Characteristics Normal for Patient Blood Pressure 186/83 H Blood Pressure [Right Arm] 135/77 Blood Pressure Mean 117 Blood Pressure Mean [Right Arm] 96 Blood Pressure Position Sitting Blood Pressure Position [Right Arm] Lying Pulse Oximetry 100 97 Oxygen Delivery Method Room Air Room Air Sepsis Recent Fever Within 48 Hours No Sepsis New/Unexplained Change in Mental Status No Sepsis Action Taken by Nursing No Action Required VITALS: Vitals are noted on the nurse's note and reviewed by myself. Vital signs stable. GENERAL: This is a 34-year-old female, in no acute distress, well-developed well-nourished. SKIN: The skin was without rashes. EARS: External auditory canals clear, tympanic membranes pearly loja without erythema or effusion bilaterally. EYES: Pupils equal round and reactive to light and accommodation. No scleral icterus. MOUTH: Mucous membranes moist. Tonsils are not enlarged. Pharynx without erythema or exudate. NECK: Supple without nuchal rigidity. No lymphadenopathy. HEART: Regular rate and rhythm without murmurs gallops or rubs. LUNGS: Clear to auscultation bilaterally without wheezes, rales or rhonchi. ABDOMEN: Positive bowel sounds x 4. Obese abdomen, soft, tenderness to palpation in the right upper quadrant. No guarding or rebound tenderness. NEURO: Patient was alert and oriented to person place and time. Course Administered Medications Discontinued Medications Ketorolac Tromethamine (Toradol) 15 mg IV NOW STA Stop: 01/07/20 04:28 Last Admin: 01/07/20 05:00 Dose: 15 mg Documented by: [id number] Ondansetron HCl (Zofran) 4 mg IV NOW STA Stop: 01/07/20 04:28 Last Admin: 01/07/20 05:01 Dose: 4 mg Documented by: [id number] Medical Decision Making Differential Diagnosis Differential diagnosis includes appendicitis, diverticulitis, bowel obstruction, inflammatory bowel disease, renal colic, PUD, biliary pathology, pancreatitis, mesenteric ischemia, aortic pathology, infection, genitourinary, UTI, perforated viscus, among others. Home Medications Current Medication List: was personally reviewed by me Laboratory Data Attestation: I reviewed the patient's lab results. Result diagrams: 01/07/20 04:55 01/07/20 04:55 Lab Results 01/07/20 01/07/20 01/07/20 Range/Units 04:55 04:55 04:55 WBC 9.50 (4.8-10.8) K/uL RBC 4.71 (4.2-5.4) M/uL Hgb 13.0 (12.0-16.0) g/dL Hct 38.6 (37-47) % MCV 82.0 (80-100) fL MCH 27.6 (25-34) pg MCHC 33.7 (32-36) g/dL RDW Std Deviation 42.1 (36.4-46.3) fL RDW Coeff of Steve 14.1 (11.5-14.5) % Plt Count 301 (130-400) K/uL MPV 9.5 (7.4-10.4) fL Immature Gran % (Auto) 0.2 % Neut % (Auto) 49.7 % Lymph % (Auto) 44.0 % [place] % (Auto) 4.9 % Eos % (Auto) 1.1 % Baso % (Auto) 0.1 % Neut # (Auto) 4.72 (1.4-6.5) K/uL Lymph # (Auto) 4.18 H (1.2-3.4) K/uL [place] # (Auto) 0.47 (0.11-0.59) K/uL Eos # (Auto) 0.10 (0-0.5) K/uL Baso # (Auto) 0.01 (0-0.2) K/uL Immature Gran # (Auto) 0.02 (0.00-0.02) K/uL Sodium 142 (136-145) mmol/L Potassium 4.1 (3.5-5.1) mmol/L Chloride 110 H (98-107) mmol/L Carbon Dioxide 24 (21-32) mmol/L Anion Gap 8.0 (3-11) BUN 13 (7-18) mg/dl Creatinine 0.99 (0.6-1.2) mg/dl Est Cr Clr Drug Dosing 105.8 ml/min Est GFR ( Amer) 86.2 Est GFR (Non-Af Amer) 74.3 BUN/Creatinine Ratio 12.9 (10-20) Glucose 100 H (70-99) mg/dl Calcium 8.9 (8.5-10.1) mg/dl Magnesium (1.8-2.4) mg/dl Total Bilirubin 0.2 (0.2-1) mg/dl AST 31 (15-37) U/L ALT 75 (12-78) U/L Alkaline Phosphatase 82 (45-117) U/L Total Protein 7.2 (6.4-8.2) gm/dl Albumin 3.2 L (3.4-5.0) gm/dl Globulin 4.0 (2.5-4.0) gm/dl Albumin/Globulin Ratio 0.8 L (0.9-2) Lipase 90 (73-393) U/L Urine Color Yellow Urine Appearance Cloudy A (Clear) Urine pH 5.0 (4.5-7.5) Ur Specific [place] 1.034 H (1.000-1.030) Urine Protein Negative (Negative) Urine Glucose (UA) Negative (Negative) Urine Ketones Trace H (Negative) Urine Blood Negative (Negative) Urine Nitrite Negative (Negative) Urine Bilirubin Negative (Negative) Urine Urobilinogen Negative (Negative) Ur Leukocyte Esterase Negative (Negative) Urine WBC (Auto) 5-10 H (0-5) /hpf Urine RBC (Auto) 0-4 (0-4) /hpf U Hyaline Cast (Auto) 0 (0-5) /lpf U Epithel Cells (Auto) >30 H (0-5) /lpf Urine Bacteria (Auto) 1+ H (Negative) Urine Crystals Not Reportable Calcium Oxalate Crystal Present A (None Prsent) Urine Mucus Present A (None Prsent) POC Ur Test (NEG) 01/07/20 01/07/20 Range/Units 04:55 04:55 WBC (4.8-10.8) K/uL RBC (4.2-5.4) M/uL Hgb (12.0-16.0) g/dL Hct (37-47) % MCV (80-100) fL MCH (25-34) pg MCHC (32-36) g/dL RDW Std Deviation (36.4-46.3) fL RDW Coeff of Steve (11.5-14.5) % Plt Count (130-400) K/uL MPV (7.4-10.4) fL Immature Gran % (Auto) % Neut % (Auto) % Lymph % (Auto) % [place] % (Auto) % Eos % (Auto) % Baso % (Auto) % Neut # (Auto) (1.4-6.5) K/uL Lymph # (Auto) (1.2-3.4) K/uL [place] # (Auto) (0.11-0.59) K/uL Eos # (Auto) (0-0.5) K/uL Baso # (Auto) (0-0.2) K/uL Immature Gran # (Auto) (0.00-0.02) K/uL Sodium (136-145) mmol/L Potassium (3.5-5.1) mmol/L Chloride (98-107) mmol/L Carbon Dioxide (21-32) mmol/L Anion Gap (3-11) BUN (7-18) mg/dl Creatinine (0.6-1.2) mg/dl Est Cr Clr Drug Dosing ml/min Est GFR ( Amer) Est GFR (Non-Af Amer) BUN/Creatinine Ratio (10-20) Glucose (70-99) mg/dl Calcium (8.5-10.1) mg/dl Magnesium 2.2 (1.8-2.4) mg/dl Total Bilirubin (0.2-1) mg/dl AST (15-37) U/L ALT (12-78) U/L Alkaline Phosphatase (45-117) U/L Total Protein (6.4-8.2) gm/dl Albumin (3.4-5.0) gm/dl Globulin (2.5-4.0) gm/dl Albumin/Globulin Ratio (0.9-2) Lipase (73-393) U/L Urine Color Urine Appearance (Clear) Urine pH (4.5-7.5) Ur Specific [place] (1.000-1.030) Urine Protein (Negative) Urine Glucose (UA) (Negative) Urine Ketones (Negative) Urine Blood (Negative) Urine Nitrite (Negative) Urine Bilirubin (Negative) Urine Urobilinogen (Negative) Ur Leukocyte Esterase (Negative) Urine WBC (Auto) (0-5) /hpf Urine RBC (Auto) (0-4) /hpf U Hyaline Cast (Auto) (0-5) /lpf U Epithel Cells (Auto) (0-5) /lpf Urine Bacteria (Auto) (Negative) Urine Crystals Calcium Oxalate Crystal (None Prsent) Urine Mucus (None Prsent) POC Ur Test NEG (NEG) Imaging Data Attestation: I personally reviewed and interpreted this imaging study as follows: Radiologist's Impression: US RUQ: Cholelithiasis and sludge. No significant gallbladder wall thickening. Mildly dilated common bile duct. Indeterminate sonographic Starr's sign due to pain medication. Correlate clinically regarding cholecystitis. Hepatomegaly. Radiologist: Shelley Mccarty M.D. Blood Pressure Blood Pressure Findings: Normal blood pressure MDM Narrative The patient is a 34-year-old male who presents today complaining of right upper quadrant abdominal pain. Patient is currently being worked up as an outpatient for gallbladder disease. She has had worsening pain tonight. Labs are unremarkable. LFTs within normal limits. Urine test negative. Urinalysis was not suggestive of infection. Right upper quadrant ultrasound was performed and read by stat rad with cholelithiasis, sludge and a mildly dilated common bile duct. Given these findings and the patient severe pain today, I do feel she would benefit from further work-up as an inpatient. Patient was agreeable with this. Case was discussed with the [facility] hospitalist service. Continuous land leasing examiner: Order was placed for continuous land leasing examiner. Patient was placed on the land leasing examiner. Patient was noted to be in normal sinus rhythm at an initial rate of 74 bpm. Impression & Plan Right upper quadrant abdominal pain, Cholelithiasis Discharge Plan Visit Data Chief Complaint: Abdominal Pain Stated Complaint: SEVERE GALLBLADDER PAIN ED Provider: Tee Panda ED Midlevel Provider: Olena Fagan Discharge Problem: Right upper quadrant abdominal pain, Cholelithiasis Forms Stand Alone Forms: My [facility] Prescriptions Prescriptions: No Action levonorgestrel-ethinyl estrad [[place] 28] 0.15-0.03 mg tablet 1 tab PO DAILY RF: 0 metformin 500 mg tablet extended release 24 hr 500 mg PO DAILY RF: 0 escitalopram oxalate 10 mg tablet 10 mg PO DAILY RF: 0
[2020-01-07 05:13] LABS: Basophils # (auto) 0.01 K/uL (0-0.2); Basophils % (auto) 0.1 %; Eosinophils % (auto) 1.1 %; Hematocrit (blood only) 38.6 % (37-47); Immature Granulocytes # (auto) 0.02 K/uL (0.00-0.02); Immature Granulocytes % (auto) 0.2 %; Lymphocytes # (auto) 4.18 K/uL (1.2-3.4); Mean Corpuscular Hemoglobin 27.6 pg (25-34); Mean Corpuscular Hgb Conc 33.7 g/dL (32-36); Mean Platelet Volume 9.5 fL (7.4-10.4); Monocytes # (auto) 0.47 K/uL (0.11-0.59); Monocytes % (auto) 4.9 %; Neutrophils # (auto) 4.72 K/uL (1.4-6.5); Neutrophils % (auto) 49.7 %; Platelet Count 301 K/uL (130-400); RDW Coefficient of Variation 14.1 % (11.5-14.5); RDW Standard Deviation 42.1 fL (36.4-46.3); Red Blood Count 4.71 M/uL (4.2-5.4)
[2020-01-07 05:27] LABS: Appearance Urine Cloudy (Clear); Bacteria Urine Automated 1+ (Negative); Bilirubin Urine Negative (Negative); Blood Urine Negative (Negative); Color Urine Yellow; Epithelial Cell Urine Auto >30 /lpf (0-5); Glucose Urine UA Negative (Negative); Ketones Urine Trace (Negative); Leukocyte Esterase Urine Negative (Negative); Nitrite Urine Negative (Negative); Protein Urine Negative (Negative); RBC Urine Automated 0-4 /hpf (0-4); Specific Gravity Urine 1.034 (1.000-1.030); Urobilinogen Urine Negative (Negative)
[2020-01-07 05:31] LABS: Albumin Level 3.2 gm/dl (3.4-5.0); BUN Creatinine Ratio 12.9 (10-20); Calcium 8.9 mg/dl (8.5-10.1); Creatinine Clr Calc Pharmacy 105.8 ml/min; Est GFR (African American) 86.2; Est GFR (Non-African American) 74.3; Potassium 4.1 mmol/L (3.5-5.1)
[2020-01-07 05:33] LABS: Albumin Globulin Ratio 0.8 (0.9-2); Bilirubin,Total 0.2 mg/dl (0.2-1); Total Protein 7.2 gm/dl (6.4-8.2)
[2020-01-07 05:40] LABS: Calcium Oxalate Crystals Urine Present (None Prsent); Cast Urine Automated 0 /lpf (0-5); Mucus Urine Present (None Prsent)
--- NOTE | 2020-01-07 06:34 | Ultrasound Report ---
US gallbladder CLINICAL HISTORY: ruq pain, known gallstones COMPARISON STUDY: Abdominal series July 15, 2015. FINDINGS: Exam is mildly compromised by suboptimal penetration. No hepatic lesions are identified. Ca liber of the common bile duct is at the upper limits of normal, measuring 6 mm. There is a 1.9 cm sto ne within the gallbladder neck. No gallbladder wall thickening is noted. There is sludge within the g allbladder. Sonographic Starr sign could not be assessed for in this patient given pain medication a dministration. There is no pericholecystic fluid. Gallbladder is mildly distended. The pancreatic bod y is normal. Head and tail are slightly obscured. There is no right hydronephrosis. IMPRESSION: Cholelithiasis and gallbladder sludge. Mild gallbladder distention. No gallbladder wall thickening. U nable to assess for sonographic Starr sign. If clinically indicated, a hepatobiliary scan could be o btained. ACT 112: Negative or not required by law. Electronically signed by: Ck Phan M.D. 01/07/2020 6:33 AM
--- NOTE | 2020-01-07 06:56 | History & Physical Report ---
Date of Service January 07, 2020 Assessment & Plan (1) Biliary colic: No sepsis for now Situational hypertension secondary to above hx hypertension as per records hx fatty liver disease, liver biopsy possibly contemplated with elective cholecystectomy as per outpatient notes PCOS on Metformin pulmonary nodules as per records, likely benign and stable in size as of outpatient CT 2016 past tobacco abuse OBS Medical telemetry given elevated BP Analgesia, anxiolytic PRN Surgery consult RE biliary colic DVT prophylaxis. SCDs RE possible surgery (Recommend pharmacologic anticoagulation once bleeding risk is deemed to be minimal and negligible pending Surgery evaluation.) Full code Text document was generated using Pins recognition software. It may contain grammatical or spelling errors. Kindly contact undersigned for clarification of any documentation item in question. History of Present Illness Chief Complaint: Abdominal pain Primary Care Provider: David Villanueva MD History obtained from patient and records. Medical history significant for cholelithiasis, fatty liver, PCOS on Metformin, history of hypertension, pulmonary nodules as per records, past tobacco abuse. Last confinement August, under obstetrics service for childbirth/vaginal delivery. Patient developed hypertension and was on Labetalol for 2 weeks. 3 months history of intermittent right upper quadrant pain symptoms associated with nausea. Outpatient CT abdomen pelvis showed cholelithiasis, mild colonic diverticulosis. Outpatient ultrasound showed cholelithiasis without cholecystitis. Hepatic steatosis with 2 x 1.4 x 1.4 submitted mass in the left lobe of the liver. MRI recommended. Liver MRI did not show focal hepatic lesion. GI specialist recommended liver biopsy for fatty liver on outpatient consultation 2 months ago. Outpatient [facility] General Surgery consultation last week. Elective laparoscopic cholecystectomy without IOC recommended for gallstone disease. Few hours ago, patient experience excruciating gallbladder attack with nausea, no emesis. No fever, no chills. No chest pain, no S OB. No headache. Patient consulted ER for evaluation. Medical History as above Surgical History : Dental surgery, tonsillectomy/adenoidectomy, blepharoplasty Family History : Dementia, kidney cancer, bladder cancer, diabetes Personal/Social history : Past tobacco abuse, occasional EtOH intake, computer work Allergies Allergy/AdvReac Type Severity Reaction Status Date / Time No Known Allergies Allergy Verified 01/07/20 05:09 Home Medications Home Medications Medication Instructions Recorded Confirmed Type escitalopram oxalate 10 mg PO DAILY 01/07/20 01/07/20 History levonorgestrel-ethinyl estrad 1 tab PO DAILY 01/07/20 01/07/20 History [[place] 28] metformin 500 mg PO DAILY 01/07/20 01/07/20 History Past Med/Surg History Medical History Cholestasis during Polycystic disease, ovaries Surgical History History of tonsillectomy Social History Preferred Language: Pakistani Communication Ability: Effective Beliefs That Will Affect Care: None marital status: Current Living Situation: Spouse Current Living Situation Comment: Willi Feels Safe at Home: Yes Smoking Status: Never smoker Second Hand Exposure: No ; Hx Alcohol Use: No Hx Substance Use: No Review of Systems Review of Systems: As per HPI, all 10 systems reviewed, all other ROS negative Physical Exam Physical Exam: GENERAL: Comfortable, pleasant, slightly anxious, morbidly obese, no respiratory distress SKIN: Normal color, warm HEENT: Bespectacled, [place] palpebral conjunctivae, no ptosis, dry buccal mucosa NECK : Supple, short neck, no tenderness CHEST : Decreased breath sounds , no tenderness HEART : RRR, no obvious murmurs ABDOMEN: Some distention, right upper quadrant tenderness EXTREMITIES : Minimal LE swelling, no LE tenderness, no other conspicuous deformities noted NEUROLOGIC : Coherent, no facial asymmetry, no other gross focality Results & Data Results & Data ([facility]) Vital Signs (Past 12 Hours) Vital Signs Temp Pulse Resp BP Pulse Ox 01/07/20 04:09 36.7 C 74 24 186/83 H 100 Laboratory Results Laboratory Results WBC 9.50 K/uL (4.8-10.8) 01/07/20 04:55 RBC 4.71 M/uL (4.2-5.4) 01/07/20 04:55 Hgb 13.0 g/dL (12.0-16.0) 01/07/20 04:55 Hct 38.6 % (37-47) 01/07/20 04:55 MCV 82.0 fL (80-100) 01/07/20 04:55 MCH 27.6 pg (25-34) 01/07/20 04:55 MCHC 33.7 g/dL (32-36) 01/07/20 04:55 RDW Std Deviation 42.1 fL (36.4-46.3) 01/07/20 04:55 RDW Coeff of Steve 14.1 % (11.5-14.5) 01/07/20 04:55 Plt Count 301 K/uL (130-400) 01/07/20 04:55 MPV 9.5 fL (7.4-10.4) 01/07/20 04:55 Immature Gran % (Auto) 0.2 % 01/07/20 04:55 Neut % (Auto) 49.7 % 01/07/20 04:55 Lymph % (Auto) 44.0 % 01/07/20 04:55 [place] % (Auto) 4.9 % 01/07/20 04:55 Eos % (Auto) 1.1 % 01/07/20 04:55 Baso % (Auto) 0.1 % 01/07/20 04:55 Neut # (Auto) 4.72 K/uL (1.4-6.5) 01/07/20 04:55 Lymph # (Auto) 4.18 K/uL (1.2-3.4) H 01/07/20 04:55 [place] # (Auto) 0.47 K/uL (0.11-0.59) 01/07/20 04:55 Eos # (Auto) 0.10 K/uL (0-0.5) 01/07/20 04:55 Baso # (Auto) 0.01 K/uL (0-0.2) 01/07/20 04:55 Immature Gran # (Auto) 0.02 K/uL (0.00-0.02) 01/07/20 04:55 Sodium 142 mmol/L (136-145) 01/07/20 04:55 Potassium 4.1 mmol/L (3.5-5.1) 01/07/20 04:55 Chloride 110 mmol/L (98-107) H 01/07/20 04:55 Carbon Dioxide 24 mmol/L (21-32) 01/07/20 04:55 Anion Gap 8.0 (3-11) 01/07/20 04:55 BUN 13 mg/dl (7-18) 01/07/20 04:55 Creatinine 0.99 mg/dl (0.6-1.2) 01/07/20 04:55 Est Cr Clr Drug Dosing 105.8 ml/min 01/07/20 04:55 Est GFR ( Amer) 86.2 01/07/20 04:55 Est GFR (Non-Af Amer) 74.3 01/07/20 04:55 BUN/Creatinine Ratio 12.9 (10-20) 01/07/20 04:55 Glucose 100 mg/dl (70-99) H 01/07/20 04:55 Calcium 8.9 mg/dl (8.5-10.1) 01/07/20 04:55 Magnesium 2.2 mg/dl (1.8-2.4) 01/07/20 04:55 Total Bilirubin 0.2 mg/dl (0.2-1) 01/07/20 04:55 AST 31 U/L (15-37) 01/07/20 04:55 ALT 75 U/L (12-78) 01/07/20 04:55 Alkaline Phosphatase 82 U/L (45-117) 01/07/20 04:55 Total Protein 7.2 gm/dl (6.4-8.2) 01/07/20 04:55 Albumin 3.2 gm/dl (3.4-5.0) L 01/07/20 04:55 Globulin 4.0 gm/dl (2.5-4.0) 01/07/20 04:55 Albumin/Globulin Ratio 0.8 (0.9-2) L 01/07/20 04:55 Lipase 90 U/L (73-393) 01/07/20 04:55 Urine Color Yellow 01/07/20 04:55 Urine Appearance Cloudy (Clear) A 01/07/20 04:55 Urine pH 5.0 (4.5-7.5) 01/07/20 04:55 Ur Specific [place] 1.034 (1.000-1.030) H 01/07/20 04:55 Urine Protein Negative (Negative) 01/07/20 04:55 Urine Glucose (UA) Negative (Negative) 01/07/20 04:55 Urine Ketones Trace (Negative) H 01/07/20 04:55 Urine Blood Negative (Negative) 01/07/20 04:55 Urine Nitrite Negative (Negative) 01/07/20 04:55 Urine Bilirubin Negative (Negative) 01/07/20 04:55 Urine Urobilinogen Negative (Negative) 01/07/20 04:55 Ur Leukocyte Esterase Negative (Negative) 01/07/20 04:55 Urine WBC (Auto) 5-10 /hpf (0-5) H 01/07/20 04:55 Urine RBC (Auto) 0-4 /hpf (0-4) 01/07/20 04:55 U Hyaline Cast (Auto) 0 /lpf (0-5) 01/07/20 04:55 U Epithel Cells (Auto) >30 /lpf (0-5) H 01/07/20 04:55 Urine Bacteria (Auto) 1+ (Negative) H 01/07/20 04:55 Urine Crystals Not Reportable 01/07/20 04:55 Calcium Oxalate Crystal Present (None Prsent) A 01/07/20 04:55 Urine Mucus Present (None Prsent) A 01/07/20 04:55 POC Ur Test NEG (NEG) 01/07/20 04:55 Diagnostic Findings Gallbladder ultrasound initial read: Cholelithiasis and sludge. No significant gallbladder wall thickening. Mildly dilated CBD. Indeterminate sonographic Starr sign due to pain medication. Correlate with cholecystitis. Hepatomegaly. Chest x-ray as per my interpretation no congestion EKG pending
--- NOTE | 2020-01-07 06:58 | XRay Report ---
XR chest 1V portable HISTORY: 34 years-old Female htn acute hypertension COMPARISON: Chest radiograph and CTA chest 07/16/2015 TECHNIQUE: Portable AP view of the chest FINDINGS: Cardiomediastinal and hilar silhouettes are within normal limits. No pneumothorax, pleural effusion, airspace consolidation or overt pulmonary edema. Bones of the chest appear grossly intact. Mild conve x right curvature of the midthoracic spine, unchanged. IMPRESSION: No acute process. ACT 112: Negative or not required by law. The above report was generated using voice recognition software. It may contain grammatical, syntax o r spelling errors. Electronically signed by: Demarcus Anderson M.D. 01/07/2020 6:57 AM
[2020-01-07] MEDS ORDERED: MoRPHine SULFATE 4 MG/ML 1 ML CARP\\VIAL IV PRN (09:36)
[2020-01-07] MEDS ORDERED: SODIUM CHLORIDE 0.45 % 1,000 ML IV SCH (09:36)
[2020-01-07] MEDS ORDERED: LORazepam 0.5 MG/1 ML VIAL IV PRN (09:36)
[2020-01-07] MEDS ORDERED: PROMETHAZINE HCL 12.5 MG in SODIUM CHLORIDE 0.9% 50 ML IV PRN (09:36)
--- NOTE | 2020-01-07 10:27 | Hospitalist Progress Note ---
Date of Service January 07, 2020 Assessment & Plan (1) Biliary colic: s/p lap nabila today. Currently recovering in PACU. Supportive care overnight. Perioperative abx given. (2) Cholelithiasis: s/p nabila as above. (3) Fatty liver: liver biopsy performed today. No elevated transaminases. (4) Polycystic disease, ovaries: Metformin per home regimen is on hold. (5) DVT prophylaxis: SCDs Full Code Dispo-home when cleared by surgery DO [facility] Hospitalist Admission and Anticipated Discharge Date Admission Date: January 07, 2020 Subjective Pt was seen right after her surgery in the PACU and was still awakening from anesthesia, so ROS was limited. She reported some pain in her RUQ area and just said she was very tired, falling asleep. Review of Systems Review of Systems: Unobtainable due to cognitive status Physical Exam Physical Exam: CONSTITUTIONAL: obese, vitals as above, generally somnolent EYES: eyes closed. ENT: MMM RESPIRATORY: clear to auscultation bilaterally, no crackles, rales or wheezes, normal respiratory effort CARDIOVASCULAR: regular rate and rhythm, S1 and 2 heard without murmurs, gallops or rubs, no JVD, no peripheral edema GASTROINTESTINAL: soft, nontender, multiple laparoscopic sites covered with gauze, minimal drainage from one site but not soaking the gauze, there is no drain in place. MUSCULOSKELETAL: head is normocephalic and atraumatic, unable to assess strength 2/2 somnolence. SKIN: warm and dry NEUROLOGIC: somnolent, coming out of anesthesia in PACU, limited exam, no gross focal deficits. Results & Data Results & Data ([facility]) Vital Signs (Past 12 Hours) Vital Signs Temp Pulse Pulse Resp BP BP Pulse Ox 01/07/20 09:59 36.9 C 74 20 135/81 98 01/07/20 07:57 76 18 133/74 98 01/07/20 05:59 67 20 135/77 97 01/07/20 04:09 36.7 C 74 24 186/83 H 100 Laboratory Results Short CBC 01/07/20 Range/Units 04:55 WBC 9.50 (4.8-10.8) K/uL Hgb 13.0 (12.0-16.0) g/dL Hct 38.6 (37-47) % Plt Count 301 (130-400) K/uL BMP 01/07/20 04:55 Sodium 142 Potassium 4.1 Chloride 110 H Carbon Dioxide 24 BUN 13 Creatinine 0.99 Glucose 100 H Calcium 8.9 Liver Function 01/07/20 Range/Units 04:55 Total Bilirubin 0.2 (0.2-1) mg/dl AST 31 (15-37) U/L ALT 75 (12-78) U/L Alkaline Phosphatase 82 (45-117) U/L Albumin 3.2 L (3.4-5.0) gm/dl Urine 01/07/20 Range/Units 04:55 Urine Color Yellow Urine Appearance Cloudy A (Clear) Urine pH 5.0 (4.5-7.5) Ur Specific [place] 1.034 H (1.000-1.030) Urine Protein Negative (Negative) Urine Glucose (UA) Negative (Negative) Medications Administered Current Inpatient Medications Escitalopram Oxalate (Lexapro Tab) 10 mg PO DAILY [facility] Stop: 02/06/20 09:59 Lorazepam (Ativan) 0.5 mg in 1 mls @ 1 mls/min IV Q4H PRN PRN Reason: Anxiety/Agitation Stop: 02/06/20 09:35 Promethazine HCl 12.5 mg/ (Sodium Chloride) 50.5 mls @ 202 mls/hr IV Q6H PRN PRN Reason: Nausea And Vomiting Stop: 02/06/20 09:35 Sodium Chloride (1/2 Nss) 1,000 mls @ 60 mls/hr IV .[id number] [facility] Stop: 02/06/20 09:35 Miscellaneous (Order Awaiting Action) 1 ea N/A QS REBEL Stop: 02/06/20 15:59 Morphine Sulfate (Morphine Sulfate) 4 mg IV Q4H PRN PRN Reason: Pain Stop: 01/21/20 09:35 Tramadol HCl (Ultram) 25 - 50 mg PO Q4H PRN PRN Reason: Pain Stop: 02/06/20 09:35
[2020-01-07 10:59] LABS: Albumin Globulin Ratio 0.8 (0.9-2); Albumin Level 3.2 gm/dl (3.4-5.0); Bilirubin,Total 0.3 mg/dl (0.2-1); Calcium 8.8 mg/dl (8.5-10.1); Creatinine Clr Calc Pharmacy 120.4 ml/min; Est GFR (African American) 100.7; Est GFR (Non-African American) 86.9; Globulin 3.9 gm/dl (2.5-4.0); Total Protein 7.1 gm/dl (6.4-8.2)
--- NOTE | 2020-01-07 11:54 | Surgery Progress Note ---
Date of Service follow up cholelithiasis, pt feels better, less abdominal pain, no nausea, no vomiting, I reviewed pt's H/P, labs, U/S study with pt, pt said her GI doctor recommend to do liver biopsy while doing cholecystectomy, base on pt's LFTS was up during her , pt also has family members with cirrhosis. January 07, 2020 Assessment & Plan (1) Biliary colic: pt is a 34 year-old female who was admitted to hospital for acute RUQ pain, IMP: Cholelithiasis, acute cholecystitis, pt and her GI doctor recommend to do liver biopsy while doing laparoscopic cholecystectomy and liver biopsy, I recommend to do laparoscopic cholecystectomy possible open or cholangiogram, D/W benefits, risks and alternatives of the surgery, the risks - infection, bleeding, injury CBD, may need ERCP, pt understood, she agrees with the surgery, I answered all questions, (2) Cholelithiasis: (3) Right upper quadrant abdominal pain: Physical Exam Constitutional: WD/WN, vitals as above well developed and well nourished Eyes: PERRL, conjunctivae normal, anicteric sclerae ENMT: external ear and nose normal, oropharynx normal Neck: trachea midline, no thyromegaly Respiratory: normal respiratory effort, lungs clear to auscultation normal respiratory effort Cardiovascular: Rate/Rhythm: regular rate and regular rhythm Heart Sounds: normal S1 and normal S2 Gastrointestinal (Abdomen): Percussion/Palpation: + abdomen tender and abdomen soft mild tenderness at RUQ, no rebound pain, no distend, BS + Musculoskeletal: no cyanosis or clubbing, extremities motor strength 5/5 Skin: no rashes, warm and dry Neurologic: patellar DTR's 2+ bilat, sensation intact Psychiatric: Orientation: alert and oriented x 3 Results & Data Vital Signs (Past 12 Hours) Vital Signs Temp Pulse Pulse Resp BP BP BP 01/07/20 11:19 36.9 C 63 18 120/77 01/07/20 10:44 74 01/07/20 09:59 36.9 C 74 20 135/81 01/07/20 07:57 76 18 133/74 01/07/20 05:59 67 20 135/77 01/07/20 04:09 36.7 C 74 24 186/83 H Pulse Ox 01/07/20 11:19 98 01/07/20 10:44 01/07/20 09:59 98 01/07/20 07:57 98 01/07/20 05:59 97 01/07/20 04:09 100 Laboratory Results Abnormal lab results 01/07/20 01/07/20 01/07/20 Range/Units 04:55 04:55 04:55 Lymph # (Auto) 4.18 H (1.2-3.4) K/uL Chloride 110 H (98-107) mmol/L Glucose 100 H (70-99) mg/dl Albumin 3.2 L (3.4-5.0) gm/dl Albumin/Globulin Ratio 0.8 L (0.9-2) Urine Appearance Cloudy A (Clear) Ur Specific [place] 1.034 H (1.000-1.030) Urine Ketones Trace H (Negative) Urine WBC (Auto) 5-10 H (0-5) /hpf U Epithel Cells (Auto) >30 H (0-5) /lpf Urine Bacteria (Auto) 1+ H (Negative) Calcium Oxalate Crystal Present A (None Prsent) Urine Mucus Present A (None Prsent) 01/07/20 Range/Units 10:15 Lymph # (Auto) (1.2-3.4) K/uL Chloride 108 H (98-107) mmol/L Glucose (70-99) mg/dl Albumin 3.2 L (3.4-5.0) gm/dl Albumin/Globulin Ratio 0.8 L (0.9-2) Urine Appearance (Clear) Ur Specific [place] (1.000-1.030) Urine Ketones (Negative) Urine WBC (Auto) (0-5) /hpf U Epithel Cells (Auto) (0-5) /lpf Urine Bacteria (Auto) (Negative) Calcium Oxalate Crystal (None Prsent) Urine Mucus (None Prsent) Diagnostic Findings US gallbladder CLINICAL HISTORY: ruq pain, known gallstones COMPARISON STUDY: Abdominal series July 15, 2015. FINDINGS: Exam is mildly compromised by suboptimal penetration. No hepatic lesions are identified. Caliber of the common bile duct is at the upper limits of normal, measuring 6 mm. There is a 1.9 cm stone within the gallbladder neck. No gallbladder wall thickening is noted. There is sludge within the gallbladder. Sonographic Starr sign could not be assessed for in this patient given pain medication administration. There is no pericholecystic fluid. Gallbladder is mildly distended. The pancreatic body is normal. Head and tail are slightly obscured. There is no right hydronephrosis. IMPRESSION: Cholelithiasis and gallbladder sludge. Mild gallbladder distention. No gallbladder wall thickening. Unable to assess for sonographic Starr sign. If clinically indicated, a hepatobiliary scan could be obtained.
--- NOTE | 2020-01-07 12:49 | Anesthesiology Consultation ---
Date of Service January 07, 2020 Assessment & Plan (1) Encounter for pre-operative examination: Chart Review Chart Review: Acceptable Risk for Surgery History Surgery Operation Date: 01/07/20 07:00 Proposed Procedures p Laparoscopic Cholecystectomy with Liver Biopsy - Mireya Solomon MD Height/Weight Height: 5 ft 7 in Weight: 116.8 kg Allergies Allergy/AdvReac Type Severity Reaction Status Date / Time No Known Allergies Allergy Verified 01/07/20 05:09 Medications Home Medications Medication Instructions Recorded Confirmed Last Taken escitalopram oxalate 10 mg PO DAILY 01/07/20 01/07/20 Unknown levonorgestrel-ethinyl estrad 1 tab PO DAILY 01/07/20 01/07/20 Unknown [Estefania 28] metformin 500 mg PO DAILY 01/07/20 01/07/20 Unknown Active Medications Generic Name Dose Route Start Last Admin Trade Name Freq PRN Reason Stop Dose Admin Sodium Chloride 1,000 mls @ 60 mls/hr 01/07/20 09:36 01/07/20 11:44 1/2 Nss IV 02/06/20 09:35 60 mls/hr .[id number] REBEL Administration Past Medical History Medical History Cholestasis during Polycystic disease, ovaries Past Surgical History Surgical History History of tonsillectomy Social History Smoking Status: Never smoker Hx Alcohol Use: Yes Alcohol type: wine alcohol intake frequency: holidays/special occasions only Hx Substance Use: No substance use type: does not use Physical Exam Vital Signs Last Vital Signs Temp 36.9 C 01/07/20 11:19 Pulse 63 01/07/20 11:19 Resp 18 01/07/20 11:19 BP 120/77 01/07/20 11:19 Pulse Ox 98 01/07/20 11:19 Testing Laboratory Results 01/07/20 04:55 01/07/20 10:15 Urine Color Yellow 01/07/20 04:55 Urine Appearance Cloudy (Clear) A 01/07/20 04:55 Urine pH 5.0 (4.5-7.5) 01/07/20 04:55 Ur Specific [place] 1.034 (1.000-1.030) H 01/07/20 04:55 Urine Protein Negative (Negative) 01/07/20 04:55 Urine Glucose (UA) Negative (Negative) 01/07/20 04:55 Urine Ketones Trace (Negative) H 01/07/20 04:55 Urine Nitrite Negative (Negative) 01/07/20 04:55 Ur Leukocyte Esterase Negative (Negative) 01/07/20 04:55 Urine WBC (Auto) 5-10 /hpf (0-5) H 01/07/20 04:55 Urine RBC (Auto) 0-4 /hpf (0-4) 01/07/20 04:55 U Hyaline Cast (Auto) 0 /lpf (0-5) 01/07/20 04:55 U Epithel Cells (Auto) >30 /lpf (0-5) H 01/07/20 04:55 Urine Bacteria (Auto) 1+ (Negative) H 01/07/20 04:55 01/07/20 04:55 POC Ur Test NEG
[2020-01-07] MEDS: ESCITALOPRAM OXALATE 10 MG TAB PO SCH (14:13)
--- NOTE | 2020-01-07 14:19 | History & Physical Bridge Note ---
Date of Service January 07, 2020 History & Physical Bridge Note I have examined the patient, reviewed the History & Physical and in the interval since the performance of the History & Physical I have noted the following changes of clinical significance: no changes noted
[2020-01-07] MEDS ORDERED: ATROPINE SULFATE 0.1 MG/ML 10ML SYR IV PRN (14:28)
[2020-01-07] MEDS ORDERED: KETOROLAC 30 MG/ML VIAL IV PRN (14:28)
[2020-01-07] MEDS ORDERED: ONDANSETRON INJ 2 MG/ML 2 ML VIAL IV PRN (14:28)
[2020-01-07] MEDS ORDERED: PROMETHAZINE HCL 6.25 MG in SODIUM CHLORIDE 0.9% 50 ML IV PRN (14:28)
[2020-01-07] MEDS ORDERED: LABETALOL HCL IV 5 MG/ML 20ML IV PRN (14:28)
[2020-01-07] MEDS ORDERED: CEFAZOLIN 2000MG 2,000 MG/15 ML SYR IV SCH (14:30)
[2020-01-07] MEDS ORDERED: LIDOCAINE HCL 2% 2 ML VIAL/AMP(20MG/ML) INFIL ONE (14:43)
[2020-01-07] MEDS ORDERED: ROCURONIUM BROMIDE 10 MG/ML 5 ML VIAL IV ONE ×2 (14:43→16:02)
[2020-01-07] MEDS ORDERED: PROPOFOL IV EMULSION 10 MG/ML 20 ML VIAL IV ONE (14:43)
[2020-01-07] MEDS ORDERED: fentaNYL citrate 100 MCG/2 ML VIAL ONE (14:43)
[2020-01-07] MEDS ORDERED: ONDANSETRON INJ 2 MG/ML 2 ML VIAL ONE ×2 (14:43→16:52)
[2020-01-07] MEDS ORDERED: DEXAMETHASONE SOD INJ 4 MG/ML VIAL ONE (14:43)
[2020-01-07] MEDS ORDERED: MIDAZOLAM HCL 1 MG/ML 2ML VIAL ONE (14:44)
[2020-01-07] MEDS ORDERED: BUPIVACAINE 0.5 % 5 MG/1 ML MPF 30ML VIAL ONE (14:48)
[2020-01-07] MEDS ORDERED: LIDOCAINE HCL 1% 20 ML VIAL ONE (14:49)
[2020-01-07] MEDS ORDERED: BACITRACIN OINT 15 GM TUBE ONE (14:49)
[2020-01-07] MEDS ORDERED: SUCCINYLCHOLINE CHLORIDE 20 MG/ML 10 ML VIAL IV ONE (15:11)
[2020-01-07] MEDS ORDERED: SODIUM CHLORIDE 0.9% INJ 10 ML VIAL ONE (15:11)
--- NOTE | 2020-01-07 15:19 | Electrocardiogram Report ---
Test Reason : Blood Pressure : / mmHG Vent. Rate : 065 BPM Atrial Rate : 065 BPM P-R Int : 168 ms QRS Dur : 104 ms QT Int : 412 ms P-R-T Axes : 020 014 028 degrees QTc Int : 428 ms Normal sinus rhythm with sinus arrhythmia Normal ECG When compared with ECG of 16-JUL-2015 10:43, Criteria for Inferior infarct are no longer Present Confirmed by Damion Gilbert ([id number]) on 01/07/2020 3:19:33 PM Referred By: REFERRED SELF Confirmed By:Damion Gilbert
[2020-01-07] MEDS ORDERED: ACETAMINOPHEN 1000 MG/100 ML IV IV ONE (15:49)
[2020-01-07] MEDS ORDERED: HYDROmorphone INJ 2 MG/ML SYR/VIAL ONE (15:55)
[2020-01-07] MEDS ORDERED: NEOSTIGMINE METHYLSULFATE 5 MG/5 ML SYR ONE (15:55)
[2020-01-07] MEDS ORDERED: GLYCOPYRROLATE 0.2 MG/ML VIAL ONE ×2 (15:55→16:51)
[2020-01-07] MEDS ORDERED: ATROPINE SULFATE 1MG/2.5ML SYR ONE (16:00)
[2020-01-07] MEDS ORDERED: ATROPINE SO4 1 MG/ML 1ML VIAL ONE (16:00)
[2020-01-07] MEDS ORDERED: LABETALOL HCL IV 5 MG/ML 20ML IV ONE (16:15)
[2020-01-07] MEDS: ORAL CONTRACEPTIVE: ORDER AWAITING ACTION SCH ×2 (16:18→22:45)
[2020-01-07] MEDS ORDERED: KETOROLAC 30 MG/ML VIAL ONE (16:51)
--- NOTE | 2020-01-07 17:05 | Post Operative Brief Note ---
Immediate Post Op Note v1 Date of Surgery January 07, 2020 Pre & Post Diagnosis Operation Date: 01/07/20 07:00 Pre-Op Diagnosis: acute cholecystitis , cholelithiasis Post-Op Diagnosis: acute cholecystitis cholelithiasis I identified the patient and participated in the time-out.: Yes Procedure Operation Date: 01/07/20 07:00 Actual Procedures p Laparoscopic Cholecystectomy with Liver Biopsy(Not Applicable) - Miryea Solomon MD Surgeon Mireya Solomon MD Mold Preparer surgical endoscopist Estimated Blood Loss 10 Findings Consistent with Post-Op Diagnosis acute cholecystitis, cholelithiasis, no mass on liver Fluids 1300ml Specimens gallbladder and liver biopsy Anesthesia Type General Complications none Disposition Accompanied Patient To Recovery: Yes Disposition: Recovery Room Overlapping Procedure I was immediately available: during the entire case.
[2020-01-07] MEDS: HYDROmorphone INJ 1 MG/ML SYRINGE IV PRN ×3 (17:46→17:59)
--- NOTE | 2020-01-07 18:31 | Anesthesiology Progress Note ---
Date of Service January 07, 2020 Anesthesia Post Procedure Vital Signs Vital Signs: Temp Pulse Pulse Pulse Resp BP BP 01/07/20 18:25 72 13 132/73 01/07/20 18:15 68 13 130/73 01/07/20 18:05 70 13 133/73 01/07/20 17:55 69 18 137/77 01/07/20 17:45 77 19 141/74 H 01/07/20 17:37 36.5 C 79 15 146/81 H 01/07/20 13:56 37.5 C 79 18 143/95 H 01/07/20 13:05 37.3 C 83 18 143/105 H 01/07/20 11:19 36.9 C 63 18 120/77 01/07/20 10:44 74 01/07/20 09:59 36.9 C 74 20 01/07/20 07:57 76 18 133/74 01/07/20 05:59 67 20 01/07/20 04:09 36.7 C 74 24 186/83 H BP Pulse Ox 01/07/20 18:25 97 01/07/20 18:15 95 01/07/20 18:05 96 01/07/20 17:55 97 01/07/20 17:45 98 01/07/20 17:37 97 01/07/20 13:56 97 01/07/20 13:05 99 01/07/20 11:19 98 01/07/20 10:44 01/07/20 09:59 135/81 98 01/07/20 07:57 98 01/07/20 05:59 135/77 97 01/07/20 04:09 100 Pain Intensity Right Upper Abdomen: Pain Intensity: 6 Transfer of Care Handoff Completed per policy Notes Mental Status: alert / awake / arousable and participated in evaluation Patient Amnestic to Procedure: Yes Nausea / Vomiting: adequately controlled Pain: adequately controlled Airway Patency, RR, SpO2: stable & adequate BP & HR: stable & adequate Hydration State: stable & adequate Anesthetic Complications: no major complications apparent and Pt Satisfied with anesthetic care
[2020-01-07] MEDS ORDERED: LACTATED RINGER'S 1,000 ML IV SCH (19:06)
--- NOTE | 2020-01-07 19:40 | Operative Report (OR) ---
DATE OF OPERATION: 01/07/2020 PREOPERATIVE DIAGNOSES: Acute cholecystitis, cholelithiasis. POSTOPERATIVE DIAGNOSES: Acute cholecystitis, cholelithiasis. PROCEDURE: Laparoscopic cholecystectomy, liver biopsy. SURGEON: Mireya Solomon MD. ANESTHESIA: General. ESTIMATED BLOOD LOSS: About 10 mL FINDINGS: Acute cholecystitis with cholelithiasis and normal finding on the liver. COMPLICATIONS: None. INDICATIONS FOR THE PROCEDURE: This is a 34-year-old female who was admitted to hospital for acute abdominal pain. The patient had a CT scan and ultrasound diagnosis of acute cholecystitis with cholelithiasis. Also, the patient had an abnormal liver enzyme test during her and at that time the patient's GI doctor recommended doing a liver biopsy, if patient needs to take off gallbladder and also the patient had a family member with cirrhosis and the patient will be required to do the liver biopsy when we do the laparoscopic cholecystectomy, so I recommended to do the laparoscopic cholecystectomy and liver biopsy, possible open, possible cholangiogram. I did talk to the patient about the benefit, the risk, alternate procedure. I indicated the risks may include but not limited such as bleeding, infection, injury to common bile duct, bile leak, may need an ERCP. The patient understands. She signed informed consent and I answered all questions. DETAILS OF PROCEDURE: We brought the patient to the OR, put the patient in the supine position. The patient received SCD on bilateral legs to prevent DVT. Also, patient received 2 grams Ancef IV for prophylactic antibiotic. The patient received general anesthesia without difficulty. The abdomen was prepped and draped from routine sterile fashion. After timeout, I injected local anesthesia by using 1% lidocaine mixed with 0.5% Marcaine just above the umbilicus. Then I made a small incision just above umbilicus, opened fascia and opened peritoneum under direct vision, put a Sravan trocar in, connected to CO2 to create pneumoperitoneum. Flow rate was 6 liter per minute. Pressure not more than 14 mmHg. Once a nice pneumoperitoneum, we put the camera in, looked around the abdomen, shows normal finding on the liver. However, the gallbladder shows significant gallbladder wall thickening, edema, confirmed diagnosis of acute cholecystitis. Then, we put another two 5 mm trocar on the right upper quadrant, one 11 trocar on the epigastric area. Then we did the liver biopsy first and we chose a right lobe of the liver and resection of about 1 x 1 cm liver tissue on the edge of the liver. Then I used the Bovie to stop the bleeding and rechecked no active bleeding. Then we used another grasper to hold the base of gallbladder, put direction to the diaphragm, another grasper to hold the pouch of gallbladder, put lateral to expunge the triangle of Calot. The cystic duct was identified and mobilized. Then I put two 10 mm metal clips on the proximal cystic duct, one on the distal cystic duct, used a scissor for transection of cystic duct and rechecked, no active bleeding, no bile leak and then the cystic artery was identified and mobilized. I put two 10 mm metal clips on the proximal cystic artery, one on the distal cystic artery and then used a scissor for transection of cystic artery and rechecked, no active bleeding. Then we used the Bovie to take down gallbladder from the liver bed. Rechecked and no active bleeding, no bile leak from the liver bed. Then we removed gallbladder through the catch bag. Then we reinserted Sravan trocar in, connected to CO2 again, looked around the abdomen, no active bleeding from liver biopsy site and no active bleeding, no bile leak from liver bed. Then we removed all trocar under direct vision. No active bleeding from the trocar site. Pneumoperitoneum was released. Then we closed the umbilical incision, fascial layer by using 0 Vicryl [id number] x2, closed subcutaneous layer by using 2-0 Vicryl interruptedly, closed skin by using 4-0 Vicryl continuous running, closed another two 5 mm trocar site skin only by using 4-0 Vicryl and then we closed the epigastric incision, fascial layer by using 0 Vicryl [id number] x2, closed subcutaneous layer by using 2-0 Vicryl interruptedly, closed skin by using 4-0 Vicryl interruptedly and then we put the dressing on. The patient tolerated the procedure well. All instrument, needle and sponge count were correct x2 at the end of case. The patient transferred to recovery room in stable condition. Specimen sent to pathology. I attest to the content of the Intraoperative Record and any orders documented therein. Any exception s are noted below.
[2020-01-07] MEDS: CEFAZOLIN 1000MG 1,000 MG/7.5 ML SYR IV SCH (21:17)
[2020-01-08] MEDS: TRAMADOL HCL 50 MG TABLET PO PRN ×2 (01:15→05:40)
[2020-01-08] MEDS: CEFAZOLIN 1000MG 1,000 MG/7.5 ML SYR IV SCH ×2 (05:37→13:47)
[2020-01-08 08:24] LABS: Basophils # (auto) 0.01 K/uL (0-0.2); Basophils % (auto) 0.1 %; Hematocrit (blood only) 39.1 % (37-47); Hemoglobin 12.8 g/dL (12.0-16.0); Immature Granulocytes # (auto) 0.03 K/uL (0.00-0.02); Immature Granulocytes % (auto) 0.2 %; Lymphocytes % (auto) 24.4 %; Mean Corpuscular Hemoglobin 26.8 pg (25-34); Mean Corpuscular Hgb Conc 32.7 g/dL (32-36); Mean Platelet Volume 9.4 fL (7.4-10.4); Monocytes # (auto) 0.64 K/uL (0.11-0.59); Neutrophils # (auto) 8.93 K/uL (1.4-6.5); Neutrophils % (auto) 70.3 %; Platelet Count 309 K/uL (130-400); RDW Coefficient of Variation 14.1 % (11.5-14.5); RDW Standard Deviation 42.4 fL (36.4-46.3); Red Blood Count 4.77 M/uL (4.2-5.4); White Blood Count 12.71 K/uL (4.8-10.8)
[2020-01-08] MEDS: ORAL CONTRACEPTIVE: ORDER AWAITING ACTION SCH (08:41)
[2020-01-08] MEDS: ESCITALOPRAM OXALATE 10 MG TAB PO SCH (08:44)
[2020-01-08 08:54] LABS: BUN Creatinine Ratio 10.1 (10-20); Creatinine Clr Calc Pharmacy 121.7 ml/min; Est GFR (African American) 100.7; Est GFR (Non-African American) 86.9
[2020-01-08] MEDS ORDERED: METFORMIN HCL ER 500 MG TABCR PO SCH (09:00)
[2020-01-08] MEDS: TRAMADOL HCL 50 MG TABLET PO SCH ×2 (09:32→13:46)
[2020-01-08] MEDS: ACETAMINOPHEN 500 MG TAB PO SCH ×2 (09:33→13:46)
[2020-01-08] MEDS ORDERED: ACETAMINOPHEN 500 MG TAB PO SCH (10:00)
[2020-01-08] MEDS ORDERED: DOCUSATE SODIUM 100 MG CAP PO SCH (11:00)
--- NOTE | 2020-01-08 11:54 | Surgery Progress Note ---
Date of Service F/U S/P lap nabila and liver biopsy, POD 1 doing fine, she tolerated clear diet, no nausea, no vomiting, January 08, 2020 Assessment & Plan (1) Biliary colic: pt is a 34 year-old female who was admitted to hospital for acute RUQ pain, IMP: Cholelithiasis, acute cholecystitis, pt and her GI doctor recommend to do liver biopsy while doing laparoscopic cholecystectomy and liver biopsy, I recommend to do laparoscopic cholecystectomy possible open or cholangiogram, D/W benefits, risks and alternatives of the surgery, the risks - infection, bleeding, injury CBD, may need ERCP, pt understood, she agrees with the surgery, I answered all questions, 01/08/2020 11:52AM doing fine, pt can be discharged home today, regular diet, keep the dressing on for 4 days, she can take a shower on 01/12/2020, no heavy lifting > 25 LBS for 4 weeks, she can go back to work on 01/11/2020, f/u me in 1- 2 weeks, (2) Cholelithiasis: (3) Right upper quadrant abdominal pain: Subjective Pt was seen right after her surgery in the PACU and was still awakening from anesthesia, so ROS was limited. She reported some pain in her RUQ area and just said she was very tired, falling asleep. Physical Exam Constitutional: WD/WN, vitals as above well developed and well nourished Eyes: PERRL, conjunctivae normal, anicteric sclerae ENMT: external ear and nose normal, oropharynx normal Neck: trachea midline, no thyromegaly Respiratory: normal respiratory effort, lungs clear to auscultation normal respiratory effort Cardiovascular: Rate/Rhythm: regular rate and regular rhythm Heart Sounds: normal S1 and normal S2 Gastrointestinal (Abdomen): Percussion/Palpation: abdomen soft all dressing intact, no redness, mild tenderness at RUQ, no rebound pain, no distend, BS + Musculoskeletal: no cyanosis or clubbing, extremities motor strength 5/5 Skin: no rashes, warm and dry Neurologic: patellar DTR's 2+ bilat, sensation intact Psychiatric: Orientation: alert and oriented x 3 Results & Data Vital Signs (Past 12 Hours) Vital Signs Temp Pulse Pulse Pulse Resp BP BP 01/08/20 11:10 36.8 C 67 16 134/81 07/21/20 08:18 75 20 117/72 01/08/20 07:10 67 01/08/20 07:04 37.0 C 79 16 144/86 H 01/08/20 03:20 36.6 C 75 18 122/79 01/08/20 00:36 73 Pulse Ox 01/08/20 11:10 94 01/08/20 08:18 94 01/08/20 07:10 01/08/20 07:04 99 01/08/20 03:20 98 01/08/20 00:36
--- NOTE | 2020-01-08 12:08 | Discharge Summary ---
Date of Service January 08, 2020 Admission HPI Per Admitting Provider History obtained from patient and records. Medical history significant for cholelithiasis, fatty liver, PCOS on Metformin, history of hypertension, pulmonary nodules as per records, past tobacco abuse. Last confinement August, under obstetrics service for childbirth/vaginal delivery. Patient developed hypertension and was on Labetalol for 2 weeks. 3 months history of intermittent right upper quadrant pain symptoms associated with nausea. Outpatient CT abdomen pelvis showed cholelithiasis, mild colonic diverticulosis. Outpatient ultrasound showed cholelithiasis without cholecystitis. Hepatic steatosis with 2 x 1.4 x 1.4 submitted mass in the left lobe of the liver. MRI recommended. Liver MRI did not show focal hepatic lesion. GI specialist recommended liver biopsy for fatty liver on outpatient consultation 2 months ago. Outpatient [facility] General Surgery consultation last week. Elective laparoscopic cholecystectomy without IOC recommended for gallstone disease. Few hours ago, patient experience excruciating gallbladder attack with nausea, no emesis. No fever, no chills. No chest pain, no S OB. No headache. Patient consulted ER for evaluation. Medical History as above Surgical History : Dental surgery, tonsillectomy/adenoidectomy, blepharoplasty Family History : Dementia, kidney cancer, bladder cancer, diabetes Personal/Social history : Past tobacco abuse, occasional EtOH intake, computer work Admission Exam Per Admitting Provider GENERAL: Comfortable, pleasant, slightly anxious, morbidly obese, no respiratory distress SKIN: Normal color, warm HEENT: Bespectacled, [place] palpebral conjunctivae, no ptosis, dry buccal mucosa NECK : Supple, short neck, no tenderness CHEST : Decreased breath sounds , no tenderness HEART : RRR, no obvious murmurs ABDOMEN: Some distention, right upper quadrant tenderness EXTREMITIES : Minimal LE swelling, no LE tenderness, no other conspicuous deformities noted NEUROLOGIC : Coherent, no facial asymmetry, no other gross focality Principal Diagnosis Biliary colic Cholelithiasis Fatty liver status post liver biopsy with pathology pending Discharge Data Allergies Allergy/AdvReac Type Severity Reaction Status Date / Time No Known Allergies Allergy Verified 01/07/20 05:09 Consultations 01/07/20 06:23 ED Decision to Admit Stat 01/07/20 09:36 Consult General Surgery Routine Procedures Performed Operation Date: 01/07/20 07:00 Actual Procedures p Laparoscopic Cholecystectomy with (Not Applicable) - Mireya Solomon MD s Liver Biopsy(Not Applicable) - Mireya Solomon MD Ordered Studies 01/07/20 04:27 US gallbladder Urgent Hospital Course (1) Biliary colic: (2) Cholelithiasis: (3) Fatty liver: 34-year-old female with a history of fatty liver disease and PCOS presented with severe biliary colic. She had no nausea, emesis, fevers, chills, chest pain, shortness of breath or headache. Work-up included a gallbladder ultrasound which revealed cholelithiasis and gallbladder sludge with mild gallbladder distention. A chest x-ray was clear. Lab work revealed no evidence of leukocytosis, hyperbilirubinemia or elevated aminotransferases. Lipase was 90. General surgery was consulted and recommended laparoscopic cholecystectomy which was performed soon after admission. She was admitted to the hospitalist service and recovered well from her procedure. At time of discharge she was tolerating regular food without issue, mentating and ambulating at baseline, o xygenating well at room air and was hemodynamically stable and afebrile. With history of fatty liver a liver biopsy was also performed during the procedure with pathology pending at time of discharge. This will be followed up by the general surgeon on follow-up in 1 to 2 weeks. Activity restrictions per discharge instructions. Total Time Total Time Spent Total Time Spent (In Minutes): 60 Total Time Includes: Examination of the Patient, Discharge Planning, Medication Reconciliation and Communication With Other Providers Discharge Plan Discharge Items Patient Disposition: Home - Self-Care Reason For Visit: HTN URGENCY Discharge Diagnosis: Biliary colic Cholelithiasis Fatty liver status post liver biopsy with pathology pending Condition on Discharge: Good Activity: As commented below Non-emergency contact: Primary Care Provider and Surgeon Call non-emergency contact if: you have any medication questions, your symptoms worsen, your pain is not controlled, your pain is worsening, your pain is unusual for you, your pain is concerning for you and you have a fever Follow-up/Referrals: David Villanueva MD [Primary Care Provider] - Diet: Regular Addtl Attending Provider Instructions: Please take all medications as instructed on discharge list below. It is recommended that you follow-up with your primary care doctor within 1 to 2 weeks of hospital discharge to ensure you are still doing well. Please follow-up with Dr. Solomon in the general surgery office as recommended below. Please note that surgical pathology is still pending at the time of discharge, and the results of the will need to be followed up with Dr. Solomon. It was a pleasure taking care of you! Please call if you have any questions or problems. You can reach a [facility] hospitalist on duty at [facility] 24 hours a day by calling [phone]. Take care of yourself. Kimber Dorantes, DO [facility] Hospitalist Addtl Nurse Researcher Provider Instructions: Keep the dressing on for 4 days You can take a shower on 01/12/2020 No heavy lifting > 25 LBS for 4 weeks You can go back to work on 01/11/2020 Follow-up with Dr. Solomon's office in 1-2 weeks, Pending Studies at Discharge: Yes Studies:: surgical pathology Stand-Alone Forms: My [facility], Work/School Release (Inpt), Smoking Cessation Medications and DC Order Prescriptions: New tramadol 50 mg Tablet 50 mg PO Q4H PRN (Reason: severe pain) Qty: 30 RF: 0 Continued levonorgestrel-ethinyl estrad [Estefania 28] 0.15-0.03 mg tablet 1 tab PO DAILY RF: 0 metformin 500 mg tablet extended release 24 hr 500 mg PO DAILY RF: 0 escitalopram oxalate 10 mg tablet 10 mg PO DAILY RF: 0 Discharge Orders: Discharge Order (Routine); Ordered 01/08/20 Ordered By: Kimber Dorantes Admission Data Admit Date/Time: 01/07/20 06:57 Attending Provider: Kimber Dorantes Admit Provider: Nikita London Primary Care Provider: David Villanueva Other Providers: Kaylie Perez ; Nikita London
--- NOTE | 2020-01-08 13:39 | Electrocardiogram Report ---
Test Reason : Blood Pressure : / mmHG Vent. Rate : 074 BPM Atrial Rate : 074 BPM P-R Int : 154 ms QRS Dur : 094 ms QT Int : 390 ms P-R-T Axes : 012 004 026 degrees QTc Int : 432 ms Normal sinus rhythm Normal ECG When compared with ECG of 07-JAN-2020 08:58, No significant change was found Confirmed by Damion Gilbert ([id number]) on 01/08/2020 1:39:26 PM Referred By: REFERRED SELF Confirmed By:Damion Gilbert
== END 2020-01-08 14:16 | disposition home or self-care (01) ==
LOC: ED 03:59 → 2N 03:59

== ENCOUNTER 2021-10-06 15:45 | Inpatient (IN) ==
[2021-10-06 17:03] LABS: Eosinophils # (auto) 0.01 K/uL (0-0.5); Eosinophils % (auto) 0.1 %; Hematocrit (blood only) 37.1 % (37-47); Hemoglobin 12.5 g/dL (12.0-16.0); Immature Granulocytes # (auto) 0.03 K/uL (0.00-0.02); Immature Granulocytes % (auto) 0.3 %; Lymphocytes % (auto) 9.8 %; Mean Corpuscular Hemoglobin 29.4 pg (25-34); Mean Corpuscular Volume 87.3 fL (80-100); Mean Platelet Volume 10.2 fL (7.4-10.4); Monocytes # (auto) 0.44 K/uL (0.11-0.59); Monocytes % (auto) 3.9 %; Neutrophils # (auto) 9.63 K/uL (1.4-6.5); Neutrophils % (auto) 85.9 %; Platelet Count 228 K/uL (130-400); RDW Coefficient of Variation 14.9 % (11.5-14.5); RDW Standard Deviation 46.9 fL (36.4-46.3); Red Blood Count 4.25 M/uL (4.2-5.4); White Blood Count 11.21 K/uL (4.8-10.8)
[2021-10-06 17:06] LABS: Mean Corpuscular Hgb Conc 33.7 g/dL (32-36)
[2021-10-06 17:33] LABS: Albumin Globulin Ratio 1.2 (0.9-2); Albumin Level 3.4 gm/dl (3.4-5.0); BUN Creatinine Ratio 15.1 (10-20); Bilirubin,Total 0.4 mg/dl (0.2-1.0); Calcium 8.9 mg/dl (8.5-10.1); Creatinine Clr Calc Pharmacy 209.2 ml/min; Est GFR (African American) 141.6 ml/min; Est GFR (Non-African American) 122.2 ml/min; Globulin 2.8 gm/dl (2.5-4.0); Potassium 3.7 mmol/L (3.5-5.1); Total Protein 6.2 gm/dl (6.0-8.3)
[2021-10-06 18:01] LABS: Protein Creatinine Ratio Urine 0.5 (0-0.2); Total Protein Urine Random 54.3 mg/dl (0-11.9)
[2021-10-06] MEDS ORDERED: OXYTOCIN 30 UNITS/500 ML BAG IV PRN (18:50)
[2021-10-06] MEDS ORDERED: DINOPROSTONE 10 MG INSERT PV ONE (18:50)
[2021-10-06] MEDS ORDERED: MAG SULFATE 6GM BOLUS FROM BAG IV ONE (18:50)
[2021-10-06] MEDS ORDERED: PENICILLIN G POTASSIUM 6 MU in DEXTROSE 5% 250 ML IV ONE (19:00)
[2021-10-06] MEDS ORDERED: BETAMETH SOD PHOS/ACETATE IA 6 MG/ML IM STA (19:13)
[2021-10-06] MEDS ORDERED: CALCIUM CARBONATE 500 MG CHEWABLE TAB PO PRN (19:23)
[2021-10-06] MEDS: LACTATED RINGER'S 1,000 ML IV PRN (19:27)
[2021-10-06] MEDS: MAGNESIUM SULFATE / WTR 40 GM/1,000 ML BAG IV SCH (19:30)
--- NOTE | 2021-10-06 19:34 | History & Physical Report ---
Date of Service October 06, 2021 Assessment & Plan (1) Pre-eclampsia during in third trimester, antepartum: Plan: Will start Magnesium sulfate 6 gm loading dose followed by 2 gram drip and Cervidil 10mg for cervical ripening placed vaginally Celestone 12 mg IM. PCN for GBS status unknown Admission and Anticipated Discharge Date Admission Date: October 06, 2021 History of Present Illness Chief Complaint: elevate blood pressure in office Primary Care Provider: David Villanueva MD 36 F P1001 at 36.4 weeks admitted with elevated blood pressures and protein in urine. Denies any headache, visual disturbances or RUQ pain. Does have mild 1+ swelling of lower extremities. Allergies Allergy/AdvReac Type Severity Reaction Status Date / Time No Known Allergies Allergy Verified 01/20/20 15:52 Home Medications Medication Instructions Recorded Confirmed Type escitalopram oxalate 10 mg tablet 10 mg PO DAILY 10/06/21 10/06/21 History (Lexapro) iron,carbonyl 65 mg-vitamin C 125 1 tab PO BID 10/06/21 10/06/21 History mg tablet,delayed release (Vitron-C) loratadine 10 mg tablet (Claritin) 10 mg PO DAILY 10/06/21 10/06/21 History magnesium 200 mg tablet 400 mg PO DAILY 10/06/21 10/06/21 History prenat.vits,archie,ete-ycxa-vfxor 1 tab PO DAILY 10/06/21 10/06/21 History Patient History Medical History (Updated 10/06/21 @ 19:31 by Madi Peñaloza MD) Cholestasis during Polycystic disease, ovaries Surgical History History of tonsillectomy Social History Smoking Status: Former smoker Second Hand Exposure: No; Hx Alcohol Use: Yes Alcohol type: wine Hx Substance Use: No Preferred Language: Kazakh Communication Ability: Effective Grain Origination Specialist Required: No Beliefs That Will Affect Care: None marital status: Current Living Situation: Family Current Living Situation Comment: Willi Other Information That Helps Us Care for You: No Feels Safe at Home: Yes Safety Concerns: Feels Safe At This Time Assistive Devices: Oxygen - Continuous 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 Review of Systems All systems reviewed & are unremarkable except as noted in HPI & below Physical Exam Constitutional: WD/WN, vitals as above Eyes: PERRL, conjunctivae normal, anicteric sclerae Neck: trachea midline, no thyromegaly Respiratory: normal respiratory effort, lungs clear to auscultation Cardiovascular: RRR, no murmur, no edema Skin: no rashes, warm and dry Neurologic: patellar DTR's 2+ bilat, sensation intact Psychiatric: A+Ox3, euthymic affect Genitourinary: no vaginal lesions, no adnexal mass normal external appearance OB Exam Abdomen: + vertex and + estimated weight (7-8 lbs) Manual OB Exam: + cervical dilation fingertip, + cervical effacement 50% and + station high OB Exam Monitor Tracing: + external FHT monitor used, + external uterine monitor used, + category I and + normal FHT variability Bedside ultrasound confirms vertex presentation BPP 8/8 with breathing and movement noted Cervidil 10 mg placed vaginally Results & Data ([facility]) Vital Signs (Past 12 Hours) Vital Signs Temp Pulse Resp BP Pulse Ox 10/06/21 19:22 136 H 99 10/06/21 19:17 127 H 162/90 H 99 10/06/21 18:51 127 H 133/81 10/06/21 18:21 18 10/06/21 18:13 118 H 183/86 H 10/06/21 18:03 118 H 173/90 H 10/06/21 17:51 122 H 180/85 H 10/06/21 17:30 117 H 151/83 H 10/06/21 17:19 114 H 137/94 10/06/21 17:09 114 H 155/68 H 10/06/21 16:59 108 H 141/68 H 10/06/21 16:52 114 H 133/65 10/06/21 16:39 115 H 148/87 H 10/06/21 16:30 123 H 142/85 H 10/06/21 16:16 122 H 139/73 10/06/21 16:15 36.6 C 18 10/06/21 16:02 113 H 179/89 H 10/06/21 16:00 103 H 181/82 H Laboratory Results 10/06/21 10/06/21 10/06/21 16:48 16:52 16:52 WBC 11.21 H RBC 4.25 Hgb 12.5 Hct 37.1 MCV 87.3 MCH 29.4 MCHC 33.7 RDW Std Deviation 46.9 H RDW Coeff of Steve 14.9 H Plt Count 228 MPV 10.2 Immature Gran % (Auto) 0.3 Neut % (Auto) 85.9 Lymph % (Auto) 9.8 [place] % (Auto) 3.9 Eos % (Auto) 0.1 Baso % (Auto) 0.0 Neut # (Auto) 9.63 H Lymph # (Auto) 1.10 L [place] # (Auto) 0.44 Eos # (Auto) 0.01 Baso # (Auto) 0.00 Immature Gran # (Auto) 0.03 H Sodium 133 L Potassium 3.7 Chloride 105 Carbon Dioxide 20 L Anion Gap 8 BUN 8 Creatinine 0.53 L Est Cr Clr Drug Dosing 209.2 Est GFR ( Amer) 141.6 Est GFR (Non-Af Amer) 122.2 BUN/Creatinine Ratio 15.1 Glucose 118 H Calcium 8.9 Total Bilirubin 0.4 AST 81 H ALT 170 H Alkaline Phosphatase 104 Total Protein 6.2 Albumin 3.4 Globulin 2.8 Albumin/Globulin Ratio 1.2 Ur Random Creatinine 106.0 U Random Total Protein 54.3 H Protein/Creatinin Ratio 0.5 H SARS-CoV-2, RNA, NAAT 10/06/21 18:43 WBC RBC Hgb Hct MCV MCH MCHC RDW Std Deviation RDW Coeff of Steve Plt Count MPV Immature Gran % (Auto) Neut % (Auto) Lymph % (Auto) [place] % (Auto) Eos % (Auto) Baso % (Auto) Neut # (Auto) Lymph # (Auto) [place] # (Auto) Eos # (Auto) Baso # (Auto) Immature Gran # (Auto) Sodium Potassium Chloride Carbon Dioxide Anion Gap BUN Creatinine Est Cr Clr Drug Dosing Est GFR ( Amer) Est GFR (Non-Af Amer) BUN/Creatinine Ratio Glucose Calcium Total Bilirubin AST ALT Alkaline Phosphatase Total Protein Albumin Globulin Albumin/Globulin Ratio Ur Random Creatinine U Random Total Protein Protein/Creatinin Ratio SARS-CoV-2, RNA, NAAT NEGATIVE Code Status & VTE Plan VTE Prophylaxis Plan VTE Prophylaxis will be ordered: No Monitoring External Monitor NST Cat 1
[2021-10-06 19:36] LABS: Hemoglobin 12.5 g/dL (12.0-16.0); Mean Corpuscular Hemoglobin 29.8 pg (25-34); Mean Corpuscular Hgb Conc 33.8 g/dL (32-36); Mean Corpuscular Volume 88.1 fL (80-100); Mean Platelet Volume 10.6 fL (7.4-10.4); Platelet Count 242 K/uL (130-400); RDW Coefficient of Variation 14.9 % (11.5-14.5); RDW Standard Deviation 47.9 fL (36.4-46.3); White Blood Count 12.83 K/uL (4.8-10.8)
[2021-10-06] MEDS ORDERED: BUTORPHANOL TARTRATE 1 MG/ML VIAL IV PRN (19:37)
[2021-10-06] MEDS: ESCITALOPRAM OXALATE 10 MG TAB PO SCH (21:13)
[2021-10-07] MEDS: LACTATED RINGER'S 1,000 ML IV PRN ×3 (08:09→22:27)
[2021-10-07] MEDS ORDERED: MAGNESIUM HYDROXIDE SUSP 30 ML UDC PO PRN (08:56)
--- NOTE | 2021-10-07 08:56 | Obstetrical Progress Note ---
Date of Service October 07, 2021 Assessment & Plan Admission and Anticipated Discharge Date Admission Date: October 06, 2021 Subjective Patient is seen and examined She is known to me from before 36 yo at 36.5 wks with /o ICP, elevated liver enzymes, HT with prior BP's started to increase recently with and has been followed in office for 24 hr urine protein which was normal last week and elevated liver enzymes Her BP's were in severe range and dip showed 2+ protein yesterday Admitted last night for IOL, IV magnesium, Betamethasone series She received Cervidil and removed this morning. No ctxs/ LOF/VB/ CP/ SOB/ WINSTON/ change in vision Has been nauseous since IV Mag was started. Vomitedx2 +FM's Vital Signs Temp Pulse Resp BP Pulse Ox 10/07/21 08:50 119 H 98 10/07/21 08:44 106 H 99 10/07/21 08:39 101 H 99 10/07/21 08:37 108 H 148/87 H 93 10/07/21 08:34 102 H 98 10/07/21 08:29 107 H 97 10/07/21 08:24 102 H 98 10/07/21 08:19 102 H 97 10/07/21 08:14 100 H 97 10/07/21 08:12 36.4 C L 18 10/07/21 08:09 110 H 99 10/07/21 08:04 103 H 97 10/07/21 07:59 99 H 97 10/07/21 07:54 100 H 96 10/07/21 07:49 104 H 98 10/07/21 07:44 102 H 98 10/07/21 07:39 102 H 98 10/07/21 07:34 106 H 98 10/07/21 07:33 101 H 143/75 H 10/07/21 07:30 18 10/07/21 07:29 102 H 98 10/07/21 07:24 116 H 98 10/07/21 07:19 101 H 97 10/07/21 07:16 98 H 142/92 H 92 10/07/21 07:14 112 H 99 10/07/21 06:51 105 H 98 10/07/21 06:46 104 H 97 10/07/21 06:41 108 H 98 10/07/21 06:36 103 H 97 10/07/21 06:32 101 H 155/92 H 10/07/21 06:31 107 H 98 10/07/21 06:30 18 10/07/21 06:26 107 H 99 10/07/21 06:21 107 H 99 10/07/21 06:16 109 H 99 10/07/21 06:11 106 H 99 10/07/21 06:06 108 H 99 10/07/21 05:56 111 H 97 10/07/21 05:51 95 H 97 10/07/21 05:46 96 H 97 10/07/21 05:41 98 H 97 10/07/21 05:36 97 H 97 10/07/21 05:33 92 H 132/67 10/07/21 05:31 97 H 97 10/07/21 05:30 18 10/07/21 05:26 96 H 97 10/07/21 05:21 96 H 97 10/07/21 05:16 92 H 98 10/07/21 05:11 93 H 97 10/07/21 05:06 95 H 97 10/07/21 05:01 92 H 98 10/07/21 04:56 91 H 98 10/07/21 04:51 92 H 98 10/07/21 04:46 92 H 97 10/07/21 04:41 90 97 10/07/21 04:36 97 H 98 10/07/21 04:32 98 H 126/70 10/07/21 04:31 100 H 99 10/07/21 04:30 36.6 C 20 10/07/21 04:26 106 H 98 10/07/21 04:18 94 H 97 10/07/21 04:13 96 H 97 10/07/21 04:08 104 H 99 10/07/21 04:03 94 H 97 10/07/21 03:58 94 H 96 10/07/21 03:53 94 H 97 10/07/21 03:48 95 H 96 10/07/21 03:43 94 H 97 10/07/21 03:38 94 H 98 10/07/21 03:33 95 H 97 10/07/21 03:32 93 H 125/60 10/07/21 03:28 94 H 98 10/07/21 03:23 94 H 97 10/07/21 03:18 93 H 97 10/07/21 03:13 96 H 97 10/07/21 03:08 94 H 97 10/07/21 03:03 95 H 97 10/07/21 03:00 18 10/07/21 02:58 95 H 96 10/07/21 02:53 94 H 97 10/07/21 02:48 94 H 97 10/07/21 02:43 92 H 96 10/07/21 02:38 94 H 97 10/07/21 02:33 91 H 96 10/07/21 02:32 95 H 129/63 10/07/21 02:30 18 10/07/21 02:28 94 H 96 10/07/21 02:23 95 H 96 10/07/21 02:18 96 H 96 10/07/21 02:13 95 H 95 10/07/21 02:08 96 H 96 10/07/21 02:04 96 H 128/67 94 10/07/21 02:03 99 H 97 10/07/21 01:58 95 H 95 10/07/21 01:53 95 H 96 10/07/21 01:48 95 H 95 10/07/21 01:43 97 H 95 10/07/21 01:38 97 H 94 10/07/21 01:36 96 H 94 10/07/21 01:32 96 H 96 10/07/21 01:30 96 H 16 91 10/07/21 01:27 98 H 94 10/07/21 01:25 99 H 94 10/07/21 01:22 97 H 94 10/07/21 01:19 97 H 94 10/07/21 01:17 98 H 94 10/07/21 01:14 97 H 94 10/07/21 01:12 98 H 94 10/07/21 01:08 100 H 94 10/07/21 01:07 98 H 95 10/07/21 01:03 99 H 94 10/07/21 01:02 99 H 95 10/07/21 00:57 98 H 95 10/07/21 00:52 96 H 95 10/07/21 00:47 98 H 96 10/07/21 00:42 97 H 96 10/07/21 00:37 98 H 96 10/07/21 00:33 36.7 C 100 H 119/67 10/07/21 00:32 96 H 93 04/20/22 00:30 18 10/07/21 00:27 106 H 97 10/07/21 00:22 108 H 96 10/07/21 00:17 108 H 95 10/07/21 00:12 109 H 97 10/07/21 00:07 109 H 97 10/07/21 00:02 110 H 97 10/06/21 23:57 108 H 97 10/06/21 23:52 108 H 97 10/06/21 23:47 111 H 97 10/06/21 23:40 121 H 98 10/06/21 23:35 108 H 96 10/06/21 23:32 109 H 130/72 10/06/21 23:30 110 H 16 96 10/06/21 23:25 108 H 96 10/06/21 23:20 114 H 95 10/06/21 23:15 114 H 96 10/06/21 23:10 115 H 96 10/06/21 23:05 114 H 96 10/06/21 23:00 113 H 96 10/06/21 22:55 116 H 96 10/06/21 22:50 114 H 95 10/06/21 22:45 115 H 97 10/06/21 22:40 111 H 97 10/06/21 22:35 123 H 132/71 97 10/06/21 22:30 18 10/06/21 22:29 115 H 96 10/06/21 22:24 114 H 97 10/06/21 22:19 119 H 98 10/06/21 22:14 118 H 96 10/06/21 22:09 117 H 96 10/06/21 22:04 115 H 96 10/06/21 21:59 117 H 96 10/06/21 21:54 114 H 99 10/06/21 21:49 118 H 98 10/06/21 21:44 118 H 97 10/06/21 21:39 122 H 98 10/06/21 21:33 125 H 134/85 10/06/21 21:30 20 10/06/21 21:17 131 H 98 10/06/21 21:12 120 H 98 10/06/21 21:07 122 H 100 10/06/21 21:02 125 H 100 10/06/21 20:57 124 H 99 Lab Results 10/06/21 10/06/2110/06/22 Range/Units 16:48 16:52 16:52 WBC 11.21 H (4.8-10.8) K/uL RBC 4.25 (4.2-5.4) M/uL Hgb 12.5 (12.0-16.0) g/dL Hct 37.1 (37-47) % MCV 87.3 (80-100) fL MCH 29.4 (25-34) pg MCHC 33.7 (32-36) g/dL RDW Std Deviation 46.9 H (36.4-46.3) fL RDW Coeff of Steve 14.9 H (11.5-14.5) % Plt Count 228 (130-400) K/uL MPV 10.2 (7.4-10.4) fL Immature Gran % (Auto) 0.3 % Neut % (Auto) 85.9 % Lymph % (Auto) 9.8 % Hernando % (Auto) 3.9 % Eos % (Auto) 0.1 % Baso % (Auto) 0.0 % Neut # (Auto) 9.63 H (1.4-6.5) K/uL Lymph # (Auto) 1.10 L (1.2-3.4) K/uL Hernando # (Auto) 0.44 (0.11-0.59) K/uL Eos # (Auto) 0.01 (0-0.5) K/uL Baso # (Auto) 0.00 (0-0.2) K/uL Immature Gran # (Auto) 0.03 H (0.00-0.02) K/uL Sodium 133 L (136-145) mmol/L Potassium 3.7 (3.5-5.1) mmol/L Chloride 105 (98-107) mmol/L Carbon Dioxide 20 L (21-32) mmol/L Anion Gap 8 (3-11) BUN 8 (6-23) mg/dl Creatinine 0.53 L (0.6-1.2) mg/dl Est Cr Clr Drug Dosing 209.2 ml/min Est GFR ( Amer) 141.6 ml/min Est GFR (Non-Af Amer) 122.2 ml/min BUN/Creatinine Ratio 15.1 (10-20) Glucose 118 H (70-99(Fasting)) mg/dl Uric Acid (2.6-7.2) mg/dl Calcium 8.9 (8.5-10.1) mg/dl Magnesium (Sulf Ther) (4.0-8.0) mg/dL Total Bilirubin 0.4 (0.2-1.0) mg/dl AST 81 H (13-39) U/L ALT 170 H (7-52) U/L Alkaline Phosphatase 104 (34-104) U/L Lactate Dehydrogenase (86-244) U/L Total Protein 6.2 (6.0-8.3) gm/dl Albumin 3.4 (3.4-5.0) gm/dl Globulin 2.8 (2.5-4.0) gm/dl Albumin/Globulin Ratio 1.2 (0.9-2) Ur Random Creatinine 106.0 mg/dl U Random Total Protein 54.3 H (0-11.9) mg/dl Protein/Creatinin Ratio 0.5 H (0-0.2) SARS-CoV-2, RNA, NAAT (NEGATIVE) Blood Type Antibody Screen 10/06/21 10/06/21 10/06/21 Range/Units 18:43 19:26 19:26 WBC (4.8-10.8) K/uL RBC (4.2-5.4) M/uL Hgb (12.0-16.0) g/dL Hct (37-47) % MCV (80-100) fL MCH (25-34) pg MCHC (32-36) g/dL RDW Std Deviation (36.4-46.3) fL RDW Coeff of Steve (11.5-14.5) % Plt Count (130-400) K/uL MPV (7.4-10.4) fL Immature Gran % (Auto) % Neut % (Auto) % Lymph % (Auto) % Hernando % (Auto) % Eos % (Auto) % Baso % (Auto) % Neut # (Auto) (1.4-6.5) K/uL Lymph # (Auto) (1.2-3.4) K/uL Hernando # (Auto) (0.11-0.59) K/uL Eos # (Auto) (0-0.5) K/uL Baso # (Auto) (0-0.2) K/uL Immature Gran # (Auto) (0.00-0.02) K/uL Sodium (136-145) mmol/L Potassium (3.5-5.1) mmol/L Chloride (98-107) mmol/L Carbon Dioxide (21-32) mmol/L Anion Gap (3-11) BUN (6-23) mg/dl Creatinine (0.6-1.2) mg/dl Est Cr Clr Drug Dosing ml/min Est GFR ( Amer) ml/min Est GFR (Non-Af Amer) ml/min BUN/Creatinine Ratio (10-20) Glucose (70-99(Fasting)) mg/dl Uric Acid 4.8 (2.6-7.2) mg/dl Calcium (8.5-10.1) mg/dl Magnesium (Sulf Ther) (4.0-8.0) mg/dL Total Bilirubin (0.2-1.0) mg/dl AST (13-39) U/L ALT (7-52) U/L Alkaline Phosphatase (34-104) U/L Lactate Dehydrogenase 160 (86-244) U/L Total Protein (6.0-8.3) gm/dl Albumin (3.4-5.0) gm/dl Globulin (2.5-4.0) gm/dl Albumin/Globulin Ratio (0.9-2) Ur Random Creatinine mg/dl U Random Total Protein (0-11.9) mg/dl Protein/Creatinin Ratio (0-0.2) SARS-CoV-2, RNA, NAAT NEGATIVE (NEGATIVE) Blood Type Antibody Screen 10/06/21 10/06/21 10/07/21 Range/Units 19:26 19:26 05:55 WBC 12.83 H (4.8-10.8) K/uL RBC 4.20 (4.2-5.4) M/uL Hgb 12.5 (12.0-16.0) g/dL Hct 37.0 (37-47) % MCV 88.1 (80-100) fL MCH 29.8 (25-34) pg MCHC 33.8 (32-36) g/dL RDW Std Deviation 47.9 H (36.4-46.3) fL RDW Coeff of Steve 14.9 H (11.5-14.5) % Plt Count 242 (130-400) K/uL MPV 10.6 H (7.4-10.4) fL Immature Gran % (Auto) % Neut % (Auto) % Lymph % (Auto) % Hernando % (Auto) % Eos % (Auto) % Baso % (Auto) % Neut # (Auto) (1.4-6.5) K/uL Lymph # (Auto) (1.2-3.4) K/uL [place] # (Auto) (0.11-0.59) K/uL Eos # (Auto) (0-0.5) K/uL Baso # (Auto) (0-0.2) K/uL Immature Gran # (Auto) (0.00-0.02) K/uL Sodium (136-145) mmol/L Potassium (3.5-5.1) mmol/L Chloride (98-107) mmol/L Carbon Dioxide (21-32) mmol/L Anion Gap (3-11) BUN (6-23) mg/dl Creatinine (0.6-1.2) mg/dl Est Cr Clr Drug Dosing ml/min Est GFR ( Amer) ml/min Est GFR (Non-Af Amer) ml/min BUN/Creatinine Ratio (10-20) Glucose (70-99(Fasting)) mg/dl Uric Acid (2.6-7.2) mg/dl Calcium (8.5-10.1) mg/dl Magnesium (Sulf Ther) 4.6 (4.0-8.0) mg/dL Total Bilirubin (0.2-1.0) mg/dl AST (13-39) U/L ALT (7-52) U/L Alkaline Phosphatase (34-104) U/L Lactate Dehydrogenase (86-244) U/L Total Protein (6.0-8.3) gm/dl Albumin (3.4-5.0) gm/dl Globulin (2.5-4.0) gm/dl Albumin/Globulin Ratio (0.9-2) Ur Random Creatinine mg/dl U Random Total Protein (0-11.9) mg/dl Protein/Creatinin Ratio (0-0.2) SARS-CoV-2, RNA, NAAT (NEGATIVE) Blood Type O Negative Antibody Screen NEGATIVE FHR categ I VE: 1/ 30%/ -3, ballotable head, posterior, patient did not tolerate VE well. No s/s of Mag toxicity nor severe features Plan to monitor, repeat labs, LFT's, Zofran for nausea, Labetalol for HT, decrease Mag to 1.5 gr/ hour Continue with cervical ripening, PO Cytotec All questions were answered. Results & Data ([facility]) Vital Signs (Past 12 Hours) Vital Signs Temp Pulse Resp BP Pulse Ox 10/07/21 08:44 106 H 99 10/07/21 08:39 101 H 99 10/07/21 08:37 108 H 148/87 H 93 10/07/21 08:34 102 H 98 10/07/21 08:29 107 H 97 10/07/21 08:24 102 H 98 10/07/21 08:19 102 H 97 10/07/21 08:14 100 H 97 10/07/21 08:12 36.4 C L 18 10/07/21 08:09 110 H 99 10/07/21 08:04 103 H 97 10/07/21 07:59 99 H 97 10/07/21 07:54 100 H 96 10/07/21 07:49 104 H 98 10/07/21 07:44 102 H 98 10/07/21 07:39 102 H 98 10/07/21 07:34 106 H 98 10/07/21 07:33 101 H 143/75 H 10/07/21 07:30 18 10/07/21 07:29 102 H 98 10/07/21 07:24 116 H 98 10/07/21 07:19 101 H 97 10/07/21 07:16 98 H 142/92 H 92 10/07/21 07:14 112 H 99 10/07/21 06:51 105 H 98 10/07/21 06:46 104 H 97 10/07/21 06:41 108 H 98 10/07/21 06:36 103 H 97 10/07/21 06:32 101 H 155/92 H 10/07/21 06:31 107 H 98 10/07/21 06:30 18 10/07/21 06:26 107 H 99 10/07/21 06:21 107 H 99 10/07/21 06:16 109 H 99 10/07/21 06:11 106 H 99 10/07/21 06:06 108 H 99 10/07/21 05:56 111 H 97 10/07/21 05:51 95 H 97 10/07/21 05:46 96 H 97 10/07/21 05:41 98 H 97 10/07/21 05:36 97 H 97 10/07/21 05:33 92 H 132/67 10/07/21 05:31 97 H 97 10/07/21 05:30 18 10/07/21 05:26 96 H 97 10/07/21 05:21 96 H 97 10/07/21 05:16 92 H 98 10/07/21 05:11 93 H 97 10/07/21 05:06 95 H 97 10/07/21 05:01 92 H 98 10/07/21 04:56 91 H 98 10/07/21 04:51 92 H 98 10/07/21 04:46 92 H 97 10/07/21 04:41 90 97 10/07/21 04:36 97 H 98 10/07/21 04:32 98 H 126/70 10/07/21 04:31 100 H 99 10/07/21 04:30 36.6 C 20 10/07/21 04:26 106 H 98 10/07/21 04:18 94 H 97 10/07/21 04:13 96 H 97 10/07/21 04:08 104 H 99 10/07/21 04:03 94 H 97 10/07/21 03:58 94 H 96 10/07/21 03:53 94 H 97 10/07/21 03:48 95 H 96 10/07/21 03:43 94 H 97 10/07/21 03:38 94 H 98 10/07/21 03:33 95 H 97 10/07/21 03:32 93 H 125/60 10/07/21 03:28 94 H 98 10/07/21 03:23 94 H 97 10/07/21 03:18 93 H 97 10/07/21 03:13 96 H 97 10/07/21 03:08 94 H 97 10/07/21 03:03 95 H 97 10/07/21 03:00 18 10/07/21 02:58 95 H 96 10/07/21 02:53 94 H 97 10/07/21 02:48 94 H 97 10/07/21 02:43 92 H 96 10/07/21 02:38 94 H 97 10/07/21 02:33 91 H 96 10/07/21 02:32 95 H 129/63 10/07/21 02:30 18 10/07/21 02:28 94 H 96 10/07/21 02:23 95 H 96 10/07/21 02:18 96 H 96 10/07/21 02:13 95 H 95 10/07/21 02:08 96 H 96 10/07/21 02:04 96 H 128/67 94 10/07/21 02:03 99 H 97 10/07/21 01:58 95 H 95 10/07/21 01:53 95 H 96 10/07/21 01:48 95 H 95 10/07/21 01:43 97 H 95 10/07/21 01:38 97 H 94 10/07/21 01:36 96 H 94 10/07/21 01:32 96 H 96 10/07/21 01:30 96 H 16 91 10/07/21 01:27 98 H 94 10/07/21 01:25 99 H 94 10/07/21 01:22 97 H 94 10/07/21 01:19 97 H 94 10/07/21 01:17 98 H 94 10/07/21 01:14 97 H 94 10/07/21 01:12 98 H 94 10/07/21 01:08 100 H 94 10/07/21 01:07 98 H 95 10/07/21 01:03 99 H 94 10/07/21 01:02 99 H 95 10/07/21 00:57 98 H 95 10/07/21 00:52 96 H 95 10/07/21 00:47 98 H 96 10/07/21 00:42 97 H 96 10/07/21 00:37 98 H 96 10/07/21 00:33 36.7 C 100 H 119/67 10/07/21 00:32 96 H 93 10/07/21 00:30 18 10/07/21 00:27 106 H 97 10/07/21 00:22 108 H 96 10/07/21 00:17 108 H 95 10/07/21 00:12 109 H 97 10/07/21 00:07 109 H 97 10/07/21 00:02 110 H 97 10/06/21 23:57 108 H 97 10/06/21 23:52 108 H 97 10/06/21 23:47 111 H 97 10/06/21 23:40 121 H 98 10/06/21 23:35 108 H 96 10/06/21 23:32 109 H 130/72 10/06/21 23:30 110 H 16 96 10/06/21 23:25 108 H 96 10/06/21 23:20 114 H 95 10/06/21 23:15 114 H 96 10/06/21 23:10 115 H 96 10/06/21 23:05 114 H 96 10/06/21 23:00 113 H 96 10/06/21 22:55 116 H 96 10/06/21 22:50 114 H 95 10/06/21 22:45 115 H 97 10/06/21 22:40 111 H 97 10/06/21 22:35 123 H 132/71 97 10/06/21 22:30 18 10/06/21 22:29 115 H 96 10/06/21 22:24 114 H 97 10/06/21 22:19 119 H 98 10/06/21 22:14 118 H 96 10/06/21 22:09 117 H 96 10/06/21 22:04 115 H 96 10/06/21 21:59 117 H 96 10/06/21 21:54 114 H 99 10/06/21 21:49 118 H 98 10/06/21 21:44 118 H 97 10/06/21 21:39 122 H 98 10/06/21 21:33 125 H 134/85 10/06/21 21:30 20 10/06/21 21:17 131 H 98 10/06/21 21:12 120 H 98 10/06/21 21:07 122 H 100 10/06/21 21:02 125 H 100 10/06/21 20:57 124 H 99 10/06/21 20:52 123 H 99
[2021-10-07] MEDS ORDERED: DOCUSATE SODIUM SYRUP 100 MG/10 ML UDC PO SCH (09:00)
[2021-10-07] MEDS: ONDANSETRON INJ 2 MG/ML 2 ML VIAL IV PRN ×3 (09:01→21:00)
[2021-10-07] MEDS: LABETALOL HCL 100 MG TAB PO SCH ×2 (09:06→20:36)
[2021-10-07] MEDS: miSOPROStoL 50 MCG TAB PO SCH ×2 (09:06→13:06)
[2021-10-07] MEDS ORDERED: DOCUSATE SODIUM 100 MG CAP PO ONE (09:15)
[2021-10-07 09:23] LABS: Basophils # (auto) 0.01 K/uL (0-0.2); Basophils % (auto) 0.1 %; Hematocrit (blood only) 38.5 % (37-47); Immature Granulocytes # (auto) 0.05 K/uL (0.00-0.02); Immature Granulocytes % (auto) 0.4 %; Lymphocytes # (auto) 1.24 K/uL (1.2-3.4); Lymphocytes % (auto) 10.5 %; Mean Corpuscular Hemoglobin 29.3 pg (25-34); Mean Corpuscular Hgb Conc 33.8 g/dL (32-36); Mean Corpuscular Volume 86.9 fL (80-100); Mean Platelet Volume 10.4 fL (7.4-10.4); Monocytes # (auto) 0.34 K/uL (0.11-0.59); Monocytes % (auto) 2.9 %; Neutrophils # (auto) 10.13 K/uL (1.4-6.5); Neutrophils % (auto) 86.1 %; Platelet Count 265 K/uL (130-400); RDW Coefficient of Variation 14.9 % (11.5-14.5); RDW Standard Deviation 47.2 fL (36.4-46.3); Red Blood Count 4.43 M/uL (4.2-5.4); White Blood Count 11.77 K/uL (4.8-10.8)
[2021-10-07 09:52] LABS: Albumin Globulin Ratio 1.2 (0.9-2); Albumin Level 3.6 gm/dl (3.4-5.0); Bilirubin,Total 0.6 mg/dl (0.2-1.0); Calcium 7.7 mg/dl (8.5-10.1); Creatinine Clr Calc Pharmacy 221.7 ml/min; Est GFR (African American) 144.3 ml/min; Est GFR (Non-African American) 124.5 ml/min; Globulin 3.1 gm/dl (2.5-4.0); Total Protein 6.7 gm/dl (6.0-8.3)
[2021-10-07 10:01] LABS: Fibrinogen 707 mg/dl (184-400); INR 0.9 (0.9-1.1); Partial Thromboplastin Ratio 0.9; Partial Thromboplastin Time 24.3 Seconds (21.0-31.0); Prothrombin Time 9.6 Seconds (9.0-12.0)
[2021-10-07] MEDS ORDERED: OXYTOCIN 30 UNITS/500 ML BAG IV PRN (10:37)
[2021-10-07] MEDS ORDERED: hydrALAZINE HCL 20 MG/ML VIAL IV ONE (10:40)
--- NOTE | 2021-10-07 11:23 | Obstetrical Progress Note ---
Date of Service October 07, 2021 Assessment & Plan Admission and Anticipated Discharge Date Admission Date: October 06, 2021 Subjective Patient is reevaluated. She feels well, no complaints. Does not feel any con tractions or pain. Discussed the abnormal rising AST, ALT and LDH which indicates another severe feature for preeclampsia. As blood pressure is also in severe range Recommended delivery sooner than later. discussed primary versus trial of other agents for induction of labor for vaginal . is a major surgery with possible risks. Patient understands all and wants to try vaginal . After long discussion we decided to add mechanical dilatation with Garrison balloon and start oxytocin 4 hours from the last dose of p.o. Cytotec which will be around 1 PM this afternoon. She was given 5 mg of IV hydralazine and then 1 mg milligram of Stadol per her request for pain. Patient was placed in dorsal lithotomy position and her cervix was checked to be 2 cm dilated. A speculum was placed in the patient's vagina and cervix was visualized. Noted to have abundant white curdy discharge suggesting Priscilla. Those were cleaned with Betadine sticks multiple times. Then a Garrison catheter was placed into the cervix and inflated with about 40 mm of sterile water. It was attached to her right upper thigh with gentle tension/traction. We also placed a Garrison catheter into the bladder to drain bladder during labor as well as to watch for urine output for IV magnesium therapy. Blood pressures came down, vital signs stable afebrile, heart rate is category 1, Plan: Diflucan 150 mg p.o. once now, Start penicillin IV, Start oxytocin at 1 PM, Continue to monitor closely, All questions were answered. Results & Data ([facility]) Vital Signs (Past 12 Hours) Vital Signs Temp Pulse Resp BP Pulse Ox 10/07/21 11:13 103 H 145/68 H 96 10/07/21 11:12 102 H 93 10/07/21 11:07 102 H 97 10/07/21 11:03 96 H 161/77 H 10/07/21 11:02 100 H 96 10/07/21 10:57 122 H 98 10/07/21 10:52 115 H 100 10/07/21 10:50 106 H 144/89 H 10/07/21 10:47 116 H 99 10/07/21 10:42 107 H 99 10/07/21 10:37 107 H 100 10/07/21 10:33 93 H 170/79 H 10/07/21 10:31 100 H 188/89 H 10/07/21 10:30 36.4 C L 100 H 18 97 10/07/21 10:25 100 H 99 10/07/21 10:20 104 H 97 10/07/21 10:15 99 H 96 10/07/21 10:10 103 H 96 10/07/21 10:05 101 H 98 10/07/21 10:03 106 H 93 10/07/21 10:00 102 H 96 10/07/21 09:55 105 H 98 10/07/21 09:50 105 H 99 10/07/21 09:45 106 H 98 10/07/21 09:40 110 H 98 10/07/21 09:35 106 H 97 10/07/21 09:32 109 H 143/78 H 10/07/21 09:30 111 H 18 98 10/07/21 09:25 115 H 97 10/07/21 09:20 107 H 98 10/07/21 09:15 115 H 99 10/07/21 09:10 112 H 99 10/07/21 09:06 106 H 175/97 H 10/07/21 09:05 118 H 97 10/07/21 09:00 118 H 98 10/07/21 08:55 118 H 99 10/07/21 08:50 119 H 98 10/07/21 08:44 106 H 99 10/07/21 08:39 101 H 99 10/07/21 08:37 108 H 148/87 H 93 10/07/21 08:34 102 H 98 10/07/21 08:29 107 H 97 10/07/21 08:24 102 H 98 10/07/21 08:19 102 H 97 10/07/21 08:14 100 H 97 10/07/21 08:12 36.4 C L 18 10/07/21 08:09 110 H 99 10/07/21 08:04 103 H 97 10/07/21 07:59 99 H 97 10/07/21 07:54 100 H 96 10/07/21 07:49 104 H 98 10/07/21 07:44 102 H 98 10/07/21 07:39 102 H 98 10/07/21 07:34 106 H 98 10/07/21 07:33 101 H 143/75 H 10/07/21 07:30 18 10/07/21 07:29 102 H 98 10/07/21 07:24 116 H 98 10/07/21 07:19 101 H 97 10/07/21 07:16 98 H 142/92 H 92 10/07/21 07:14 112 H 99 10/07/21 06:51 105 H 98 10/07/21 06:46 104 H 97 10/07/21 06:41 108 H 98 10/07/21 06:36 103 H 97 10/07/21 06:32 101 H 155/92 H 10/07/21 06:31 107 H 98 10/07/21 06:30 18 10/07/21 06:26 107 H 99 10/07/21 06:21 107 H 99 10/07/21 06:16 109 H 99 10/07/21 06:11 106 H 99 10/07/21 06:06 108 H 99 10/07/21 05:56 111 H 97 10/07/21 05:51 95 H 97 10/07/21 05:46 96 H 97 10/07/21 05:41 98 H 97 10/07/21 05:36 97 H 97 10/07/21 05:33 92 H 132/67 10/07/21 05:31 97 H 97 10/07/21 05:30 18 10/07/21 05:26 96 H 97 10/07/21 05:21 96 H 97 10/07/21 05:16 92 H 98 10/07/21 05:11 93 H 97 10/07/21 05:06 95 H 97 10/07/21 05:01 92 H 98 10/07/21 04:56 91 H 98 10/07/21 04:51 92 H 98 10/07/21 04:46 92 H 97 10/07/21 04:41 90 97 10/07/21 04:36 97 H 98 10/07/21 04:32 98 H 126/70 10/07/21 04:31 100 H 99 10/07/21 04:30 36.6 C 20 10/07/21 04:26 106 H 98 10/07/21 04:18 94 H 97 10/07/21 04:13 96 H 97 10/07/21 04:08 104 H 99 10/07/21 04:03 94 H 97 10/07/21 03:58 94 H 96 10/07/21 03:53 94 H 97 10/07/21 03:48 95 H 96 10/07/21 03:43 94 H 97 10/07/21 03:38 94 H 98 10/07/21 03:33 95 H 97 10/07/21 03:32 93 H 125/60 10/07/21 03:28 94 H 98 10/07/21 03:23 94 H 97 10/07/21 03:18 93 H 97 10/07/21 03:13 96 H 97 10/07/21 03:08 94 H 97 10/07/21 03:03 95 H 97 10/07/21 03:00 18 10/07/21 02:58 95 H 96 10/07/21 02:53 94 H 97 10/07/21 02:48 94 H 97 10/07/21 02:43 92 H 96 10/07/21 02:38 94 H 97 10/07/21 02:33 91 H 96 10/07/21 02:32 95 H 129/63 10/07/21 02:30 18 10/07/21 02:28 94 H 96 10/07/21 02:23 95 H 96 10/07/21 02:18 96 H 96 10/07/21 02:13 95 H 95 10/07/21 02:08 96 H 96 10/07/21 02:04 96 H 128/67 94 10/07/21 02:03 99 H 97 10/07/21 01:58 95 H 95 10/07/21 01:53 95 H 96 10/07/21 01:48 95 H 95 10/07/21 01:43 97 H 95 10/07/21 01:38 97 H 94 10/07/21 01:36 96 H 94 10/07/21 01:32 96 H 96 10/07/21 01:30 96 H 16 91 10/07/21 01:27 98 H 94 10/07/21 01:25 99 H 94 10/07/21 01:22 97 H 94 10/07/21 01:19 97 H 94 10/07/21 01:17 98 H 94 10/07/21 01:14 97 H 94 10/07/21 01:12 98 H 94 10/07/21 01:08 100 H 94 10/07/21 01:07 98 H 95 10/07/21 01:03 99 H 94 10/07/21 01:02 99 H 95 10/07/21 00:57 98 H 95 10/07/21 00:52 96 H 95 10/07/21 00:47 98 H 96 10/07/21 00:42 97 H 96 10/07/21 00:37 98 H 96 10/07/21 00:33 36.7 C 100 H 119/67 10/07/21 00:32 96 H 93 10/07/21 00:30 18 10/07/21 00:27 106 H 97 10/07/21 00:22 108 H 96 10/07/21 00:17 108 H 95 10/07/21 00:12 109 H 97 10/07/21 00:07 109 H 97 10/07/21 00:02 110 H 97 10/06/21 23:57 108 H 97 10/06/21 23:52 108 H 97 10/06/21 23:47 111 H 97 10/06/21 23:40 121 H 98 10/06/21 23:35 108 H 96 10/06/21 23:32 109 H 130/72 10/06/21 23:30 110 H 16 96 10/06/21 23:25 108 H 96 10/06/21 23:20 114 H 95
[2021-10-07] MEDS ORDERED: FLUCONAZOLE 50 MG TAB PO ONE (11:30)
[2021-10-07] MEDS ORDERED: PRENATAL VITAMIN 1 TAB PO SCH (11:45)
[2021-10-07] MEDS ORDERED: ESCITALOPRAM OXALATE 10 MG TAB PO SCH (11:45)
[2021-10-07] MEDS: LORATADINE 10 MG TAB PO SCH (11:48)
[2021-10-07] MEDS ORDERED: ePHEDrine sulfate 50 MG/ML AMP ONE (12:34)
[2021-10-07] MEDS ORDERED: fentaNYL 2MCG/ML ROPIVACAINE 1.25MG/ML 100 ML BAG EPI ONE (12:35)
[2021-10-07] MEDS ORDERED: BUPIVACAINE 0.25% 30 ML VIAL ONE (12:35)
[2021-10-07] MEDS ORDERED: fentaNYL citrate 100 MCG/2 ML VIAL ONE (12:35)
[2021-10-07] MEDS ORDERED: SODIUM CHLORIDE 0.9% INJ 10 ML VIAL ONE (12:35)
--- NOTE | 2021-10-07 13:44 | Anesthesiology Consultation ---
Date of Service October 07, 2021 Assessment & Plan (1) Encounter for pre-operative examination: Chart Review Chart Review: Patient NOT seen in Pre Admission Testing and Acceptable Risk for Labor Epidural Consults Requested none History Height/Weight Height: 5 ft 7 in Weight: 133.356 kg Allergies Allergy/AdvReac Type Severity Reaction Status Date / Time No Known Allergies Allergy Verified 01/20/20 15:52 Medications Home Medications Medication Instructions Recorded Confirmed Last Taken escitalopram oxalate 10 mg tablet 10 mg PO DAILY 10/06/21 10/06/21 10/05/21 (Lexapro) iron,carbonyl 65 mg-vitamin C 125 1 tab PO BID 10/06/21 10/06/21 10/06/21 mg tablet,delayed release (Vitron-C) loratadine 10 mg tablet (Claritin) 10 mg PO DAILY 10/06/21 10/06/21 10/05/21 magnesium 200 mg tablet 400 mg PO DAILY 10/06/21 10/06/21 10/05/21 prenat.vits,archie,iha-lvps-syity 1 tab PO DAILY 10/06/21 10/06/21 10/05/21 Active Medications Generic Name Dose Route Start Last Admin Trade Name Freq PRN Reason Stop Dose Admin Butorphanol Tartrate 1 mg 10/06/21 19:37 10/07/21 10:53 Butorphanol Tartrate 1 Mg/Ml Vial IV 11/05/21 19:36 1 mg Q2R PRN Administration Pain Calcium Carbonate 1,500 mg 10/06/21 19:23 10/06/21 20:37 Calcium Carbonate 500 Mg Chewable Tab PO 11/05/21 19:22 1,500 mg Q2R PRN Administration Indigestion Escitalopram Oxalate 10 mg 10/06/21 21:00 10/06/21 21:13 Escitalopram Oxalate 10 Mg Tab PO 11/05/21 20:59 10 mg HS REBEL Administration Lactated Ringer's 1,000 mls @ 125 mls/hr 10/06/21 18:50 10/07/21 13:01 Lr IV 10/08/21 18:49 900 mls/hr .Q8H PRN Infusion L&D Protocol Protocol Magnesium Sulfate 40 gm in 1,000 mls @ 37 mls/hr 10/06/21 19:00 10/07/21 08:45 Magnesium Sulfate / Wtr IV 11/05/21 18:59 37 mls/hr .Q24H REBEL Infusion Oxytocin 30 units in 500 mls @ 2 mls/hr 10/07/21 10:37 10/07/21 13:07 Pitocin IV 10/09/21 10:36 0.12 units/hr .Q24H PRN 2 mls/hr Labor Induction/Augmentation Administration Protocol 0.12 UNITS/HR Labetalol HCl 100 mg 10/07/21 08:30 10/07/21 09:06 Labetalol Hcl 100 Mg Tab PO 11/06/21 08:29 100 mg BID REBEL Administration Loratadine 10 mg 10/07/21 11:45 10/07/21 11:48 Loratadine 10 Mg Tab PO 11/06/21 11:44 Not Given DAILY REBEL Ondansetron HCl 4 mg 10/07/21 08:48 10/07/21 09:01 Ondansetron Inj 2 Mg/Ml 2 Ml Vial IV 11/06/21 08:47 4 mg Q4H PRN Administration Nausea Prenat Multivit/[facility]/Iron/Folic Ac 1 tab 10/07/21 11:45 10/07/21 11:49 Vitamin 1 Tab PO 11/06/21 11:44 Not Given DAILY REBEL Past Medical History Medical History Cholestasis during Polycystic disease, ovaries Past Surgical History Surgical History History of tonsillectomy Social History Smoking Status: Former smoker Hx Alcohol Use: Yes Alcohol type: wine alcohol intake frequency: holidays/special occasions only Hx Substance Use: No substance use type: does not use Physical Exam Vital Signs Last Vital Signs Temp 36.6 C 10/07/21 13:31 Pulse 96 H 10/07/21 13:38 Resp 18 10/07/21 13:31 BP 140/75 10/07/21 12:51 Pulse Ox 99 10/07/21 13:38 Testing Laboratory Results 10/07/21 09:04 10/07/21 09:04 PT 9.6 Seconds (9.0-12.0) 10/07/21 09:04 INR 0.9 (0.9-1.1) 10/07/21 09:04 APTT 24.3 Seconds (21.0-31.0) 10/07/21 09:04 Blood Type O Negative 10/06/21 19:26 Antibody Screen NEGATIVE 10/06/21 19:26
[2021-10-07] MEDS: MAGNESIUM SULFATE / WTR 40 GM/1,000 ML BAG IV SCH (14:04)
[2021-10-07] MEDS ORDERED: NALBUPHINE HCL INJ 10 MG/ML AMP IV PRN (14:37)
[2021-10-07] MEDS ORDERED: diphenhydrAMINE 50 MG/ML VIAL IV PRN (14:37)
[2021-10-07] MEDS ORDERED: fentaNYL 2MCG/ML ROPIVACAINE 1.25MG/ML 100 ML BAG EPI PRN (14:37)
[2021-10-07] MEDS ORDERED: ePHEDrine sulfate 50 MG/ML AMP IV PRN (14:37)
[2021-10-07] MEDS ORDERED: ONDANSETRON INJ 2 MG/ML 2 ML VIAL IV PRN (14:37)
[2021-10-07] MEDS ORDERED: NALOXONE HCL 0.4 MG/1 ML VIAL/CARP IV PRN (14:37)
[2021-10-07] MEDS ORDERED: NALOXONE HCL 1 MG in SODIUM CHLORIDE 0.9% 1000ML 1,000 ML IV PRN (14:37)
[2021-10-07 15:27] LABS: Hematocrit (blood only) 37.1 % (37-47); Hemoglobin 12.3 g/dL (12.0-16.0); Immature Granulocytes # (auto) 0.03 K/uL (0.00-0.02); Immature Granulocytes % (auto) 0.3 %; Lymphocytes # (auto) 1.21 K/uL (1.2-3.4); Lymphocytes % (auto) 10.8 %; Mean Corpuscular Hemoglobin 29.3 pg (25-34); Mean Corpuscular Hgb Conc 33.2 g/dL (32-36); Mean Corpuscular Volume 88.3 fL (80-100); Mean Platelet Volume 10.6 fL (7.4-10.4); Monocytes # (auto) 0.57 K/uL (0.11-0.59); Monocytes % (auto) 5.1 %; Neutrophils # (auto) 9.36 K/uL (1.4-6.5); Neutrophils % (auto) 83.8 %; Platelet Count 239 K/uL (130-400); RDW Standard Deviation 48.3 fL (36.4-46.3); White Blood Count 11.17 K/uL (4.8-10.8)
[2021-10-07 15:34] LABS: Albumin Globulin Ratio 1.2 (0.9-2); Albumin Level 3.4 gm/dl (3.4-5.0); BUN Creatinine Ratio 11.7 (10-20); Bilirubin,Total 0.4 mg/dl (0.2-1.0); Calcium 7.8 mg/dl (8.5-10.1); Creatinine Clr Calc Pharmacy 184.8 ml/min; Est GFR (African American) 135.9 ml/min; Est GFR (Non-African American) 117.3 ml/min; Globulin 2.9 gm/dl (2.5-4.0); Magnesium Therapeutic L&D Only 4.6 mg/dL (4.0-8.0); Potassium 3.9 mmol/L (3.5-5.1); Total Protein 6.3 gm/dl (6.0-8.3)
[2021-10-07] MEDS: PENICILLIN G POTASSIUM 3 MU in DEXTROSE 5% 100 ML IV PRN ×2 (16:04→20:34)
--- NOTE | 2021-10-07 16:53 | Obstetrical Progress Note ---
Date of Service October 07, 2021 Assessment & Plan Admission and Anticipated Discharge Date Admission Date: October 06, 2021 Subjective Is related. She is comfortable received epidural for pain and has been taking naps. Her blood pressures dropped after epidural and was given ephedrine, now they are stable. Vital signs stable afebrile, heart rate category 1, [place] with contractions every 2 to 5 minutes, Pitocin was increased to 80 mIU/min, Vaginal exam Garrison bulb is in the vagina, removed cervix is 4 cm dilated, 50% effaced head at -2 station with a tight amniotic bag, AROM clear fluid was obtained, Continue to monitor closely Repeat labs every 6 hours. Intake & Output 10/07/21 10/07/21 10/07/21 06:59 14:59 22:59 Intake Total 750 / 9406.821 0155.817 / 2618.050 634.233 / 2618.050 Output Total 1300 / 1800 1150 / 1150 Balance -550 / -400.417 833.817 / 1468.050 634.233 / 1468.050 Weight 133.356 kg Intake: IV 750 / 2958.827 4405.817 / 2618.050 634.233 / 2618.050 Lactated Ringer's 1,000 ml @ 450 / 678.75 1316.283 / 1944.416 628.133 / 1944.416 125 mls/hr IV .Q8H PRN Rx#: [id number] Magnesium Sulfate / Wtr 40 gm 300 / 720.833 404.167 / 404.167 In 1,000 ml @ 37 mls/hr IV . Q24H REBEL Rx#:[id number] Oxytocin 30 units In 500 ml @ 0 1.367 / 7.467 6.1 / 7.467 UNITS/HR IV .Q0M PRN Rx#: [id number] Penicillin G Potassium 6 mu In 262 / 262 Dextrose 5% 250 ml @ 262 mls/hr IV 1900 ONE Rx#:[id number] Output: Urine 1300 / 1800 400 / 400 Urine Amount (Catheter) 750 / 750 Garrison/Indwelling 750 / 750 Lab Results 10/06/21 10/06/21 10/06/21 Range/Units 16:48 16:52 16:52 WBC 11.21 H (4.8-10.8) K/uL RBC 4.25 (4.2-5.4) M/uL Hgb 12.5 (12.0-16.0) g/dL Hct 37.1 (37-47) % MCV 87.3 (80-100) fL MCH 29.4 (25-34) pg MCHC 33.7 (32-36) g/dL RDW Std Deviation 46.9 H (36.4-46.3) fL RDW Coeff of Steve 14.9 H (11.5-14.5) % Plt Count 228 (130-400) K/uL MPV 10.2 (7.4-10.4) fL Immature Gran % (Auto) 0.3 % Neut % (Auto) 85.9 % Lymph % (Auto) 9.8 % Hays % (Auto) 3.9 % Eos % (Auto) 0.1 % Baso % (Auto) 0.0 % Neut # (Auto) 9.63 H (1.4-6.5) K/uL Lymph # (Auto) 1.10 L (1.2-3.4) K/uL Hays # (Auto) 0.44 (0.11-0.59) K/uL Eos # (Auto) 0.01 (0-0.5) K/uL Baso # (Auto) 0.00 (0-0.2) K/uL Immature Gran # (Auto) 0.03 H (0.00-0.02) K/uL PT (9.0-12.0) Seconds INR (0.9-1.1) APTT (21.0-31.0) Seconds PTT Ratio Fibrinogen (184-400) mg/dl Sodium 133 L (136-145) mmol/L Potassium 3.7 (3.5-5.1) mmol/L Chloride 105 (98-107) mmol/L Carbon Dioxide 20 L (21-32) mmol/L Anion Gap 8 (3-11) BUN 8 (6-23) mg/dl Creatinine 0.53 L (0.6-1.2) mg/dl Est Cr Clr Drug Dosing 209.2 ml/min Est GFR ( Amer) 141.6 ml/min Est GFR (Non-Af Amer) 122.2 ml/min BUN/Creatinine Ratio 15.1 (10-20) Glucose 118 H (70-99(Fasting)) mg/dl Uric Acid (2.6-7.2) mg/dl Calcium 8.9 (8.5-10.1) mg/dl Magnesium (Sulf Ther) (4.0-8.0) mg/dL Total Bilirubin 0.4 (0.2-1.0) mg/dl AST 81 H (13-39) U/L ALT 170 H (7-52) U/L Alkaline Phosphatase 104 (34-104) U/L Lactate Dehydrogenase (86-244) U/L Total Protein 6.2 (6.0-8.3) gm/dl Albumin 3.4 (3.4-5.0) gm/dl Globulin 2.8 (2.5-4.0) gm/dl Albumin/Globulin Ratio 1.2 (0.9-2) Ur Random Creatinine 106.0 mg/dl U Random Total Protein 54.3 H (0-11.9) mg/dl Protein/Creatinin Ratio 0.5 H (0-0.2) SARS-CoV-2, RNA, NAAT (NEGATIVE) Blood Type Antibody Screen 10/06/21 10/06/21 10/06/21 Range/Units 18:43 19:26 19:26 WBC (4.8-10.8) K/uL RBC (4.2-5.4) M/uL Hgb (12.0-16.0) g/dL Hct (37-47) % MCV (80-100) fL MCH (25-34) pg MCHC (32-36) g/dL RDW Std Deviation (36.4-46.3) fL RDW Coeff of Steve (11.5-14.5) % Plt Count (130-400) K/uL MPV (7.4-10.4) fL Immature Gran % (Auto) % Neut % (Auto) % Lymph % (Auto) % H[place] % (Auto) % Eos % (Auto) % Baso % (Auto) % Neut # (Auto) (1.4-6.5) K/uL Lymph # (Auto) (1.2-3.4) K/uL H[place] # (Auto) (0.11-0.59) K/uL Eos # (Auto) (0-0.5) K/uL Baso # (Auto) (0-0.2) K/uL Immature Gran # (Auto) (0.00-0.02) K/uL PT (9.0-12.0) Seconds INR (0.9-1.1) APTT (21.0-31.0) Seconds PTT Ratio Fibrinogen (184-400) mg/dl Sodium (136-145) mmol/L Potassium (3.5-5.1) mmol/L Chloride (98-107) mmol/L Carbon Dioxide (21-32) mmol/L Anion Gap (3-11) BUN (6-23) mg/dl Creatinine (0.6-1.2) mg/dl Est Cr Clr Drug Dosing ml/min Est GFR ( Amer) ml/min Est GFR (Non-Af Amer) ml/min BUN/Creatinine Ratio (10-20) Glucose (70-99(Fasting)) mg/dl Uric Acid 4.8 (2.6-7.2) mg/dl Calcium (8.5-10.1) mg/dl Magnesium (Sulf Ther) (4.0-8.0) mg/dL Total Bilirubin (0.2-1.0) mg/dl AST (13-39) U/L ALT (7-52) U/L Alkaline Phosphatase (34-104) U/L Lactate Dehydrogenase 160 (86-244) U/L Total Protein (6.0-8.3) gm/dl Albumin (3.4-5.0) gm/dl Globulin (2.5-4.0) gm/dl Albumin/Globulin Ratio (0.9-2) Ur Random Creatinine mg/dl U Random Total Protein (0-11.9) mg/dl Protein/Creatinin Ratio (0-0.2) SARS-CoV-2, RNA, NAAT NEGATIVE (NEGATIVE) Blood Type Antibody Screen 10/06/21 10/06/21 10/07/21 Range/Units 19:26 19:26 05:55 WBC 12.83 H (4.8-10.8) K/uL RBC 4.20 (4.2-5.4) M/uL Hgb 12.5 (12.0-16.0) g/dL Hct 37.0 (37-47) % MCV 88.1 (80-100) fL MCH 29.8 (25-34) pg MCHC 33.8 (32-36) g/dL RDW Std Deviation 47.9 H (36.4-46.3) fL RDW Coeff of Steve 14.9 H (11.5-14.5) % Plt Count 242 (130-400) K/uL MPV 10.6 H (7.4-10.4) fL Immature Gran % (Auto) % Neut % (Auto) % Lymph % (Auto) % H[place] % (Auto) % Eos % (Auto) % Baso % (Auto) % Neut # (Auto) (1.4-6.5) K/uL Lymph # (Auto) (1.2-3.4) K/uL [place] # (Auto) (0.11-0.59) K/uL Eos # (Auto) (0-0.5) K/uL Baso # (Auto) (0-0.2) K/uL Immature Gran # (Auto) (0.00-0.02) K/uL PT (9.0-12.0) Seconds INR (0.9-1.1) APTT (21.0-31.0) Seconds PTT Ratio Fibrinogen (184-400) mg/dl Sodium (136-145) mmol/L Potassium (3.5-5.1) mmol/L Chloride (98-107) mmol/L Carbon Dioxide (21-32) mmol/L Anion Gap (3-11) BUN (6-23) mg/dl Creatinine (0.6-1.2) mg/dl Est Cr Clr Drug Dosing ml/min Est GFR ( Amer) ml/min Est GFR (Non-Af Amer) ml/min BUN/Creatinine Ratio (10-20) Glucose (70-99(Fasting)) mg/dl Uric Acid (2.6-7.2) mg/dl Calcium (8.5-10.1) mg/dl Magnesium (Sulf Ther) 4.6 (4.0-8.0) mg/dL Total Bilirubin (0.2-1.0) mg/dl AST (13-39) U/L ALT (7-52) U/L Alkaline Phosphatase (34-104) U/L Lactate Dehydrogenase (86-244) U/L Total Protein (6.0-8.3) gm/dl Albumin (3.4-5.0) gm/dl Globulin (2.5-4.0) gm/dl Albumin/Globulin Ratio (0.9-2) Ur Random Creatinine mg/dl U Random Total Protein (0-11.9) mg/dl Protein/Creatinin Ratio (0-0.2) SARS-CoV-2, RNA, NAAT (NEGATIVE) Blood Type O Negative Antibody Screen NEGATIVE 10/07/21 10/07/21 10/07/21 Range/Units 09:04 09:04 09:04 WBC 11.77 H (4.8-10.8) K/uL RBC 4.43 (4.2-5.4) M/uL Hgb 13.0 (12.0-16.0) g/dL Hct 38.5 (37-47) % MCV 86.9 (80-100) fL MCH 29.3 (25-34) pg MCHC 33.8 (32-36) g/dL RDW Std Deviation 47.2 H (36.4-46.3) fL RDW Coeff of Steve 14.9 H (11.5-14.5) % Plt Count 265 (130-400) K/uL MPV 10.4 (7.4-10.4) fL Immature Gran % (Auto) 0.4 % Neut % (Auto) 86.1 % Lymph % (Auto) 10.5 % H[place] % (Auto) 2.9 % Eos % (Auto) 0.0 % Baso % (Auto) 0.1 % Neut # (Auto) 10.13 H (1.4-6.5) K/uL Lymph # (Auto) 1.24 (1.2-3.4) K/uL H[place] # (Auto) 0.34 (0.11-0.59) K/uL Eos # (Auto) 0.00 (0-0.5) K/uL Baso # (Auto) 0.01 (0-0.2) K/uL Immature Gran # (Auto) 0.05 H (0.00-0.02) K/uL PT 9.6 (9.0-12.0) Seconds INR 0.9 (0.9-1.1) APTT 24.3 (21.0-31.0) Seconds PTT Ratio 0.9 Fibrinogen 707 H (184-400) mg/dl Sodium 132 L (136-145) mmol/L Potassium 4.0 (3.5-5.1) mmol/L Chloride 103 (98-107) mmol/L Carbon Dioxide 20 L (21-32) mmol/L Anion Gap 9 (3-11) BUN 6 (6-23) mg/dl Creatinine 0.50 L (0.6-1.2) mg/dl Est Cr Clr Drug Dosing 221.7 ml/min Est GFR ( Amer) 144.3 ml/min Est GFR (Non-Af Amer) 124.5 ml/min BUN/Creatinine Ratio 12.0 (10-20) Glucose 108 H (70-99(Fasting)) mg/dl Uric Acid (2.6-7.2) mg/dl Calcium 7.7 L (8.5-10.1) mg/dl Magnesium (Sulf Ther) (4.0-8.0) mg/dL Total Bilirubin 0.6 (0.2-1.0) mg/dl AST 212 H (13-39) U/L ALT 326 H (7-52) U/L Alkaline Phosphatase 112 H (34-104) U/L Lactate Dehydrogenase (86-244) U/L Total Protein 6.7 (6.0-8.3) gm/dl Albumin 3.6 (3.4-5.0) gm/dl Globulin 3.1 (2.5-4.0) gm/dl Albumin/Globulin Ratio 1.2 (0.9-2) Ur Random Creatinine mg/dl U Random Total Protein (0-11.9) mg/dl Protein/Creatinin Ratio (0-0.2) SARS-CoV-2, RNA, NAAT (NEGATIVE) Blood Type Antibody Screen 10/07/21 10/07/21 10/07/21 Range/Units 09:04 12:01 14:55 WBC (4.8-10.8) K/uL RBC (4.2-5.4) M/uL Hgb (12.0-16.0) g/dL Hct (37-47) % MCV (80-100) fL MCH (25-34) pg MCHC (32-36) g/dL RDW Std Deviation (36.4-46.3) fL RDW Coeff of Steve (11.5-14.5) % Plt Count (130-400) K/uL MPV (7.4-10.4) fL Immature Gran % (Auto) % Neut % (Auto) % Lymph % (Auto) % [place] % (Auto) % Eos % (Auto) % Baso % (Auto) % Neut # (Auto) (1.4-6.5) K/uL Lymph # (Auto) (1.2-3.4) K/uL [place] # (Auto) (0.11-0.59) K/uL Eos # (Auto) (0-0.5) K/uL Baso # (Auto) (0-0.2) K/uL Immature Gran # (Auto) (0.00-0.02) K/uL PT (9.0-12.0) Seconds INR (0.9-1.1) APTT (21.0-31.0) Seconds PTT Ratio Fibrinogen (184-400) mg/dl Sodium 134 L (136-145) mmol/L Potassium 3.9 (3.5-5.1) mmol/L Chloride 103 (98-107) mmol/L Carbon Dioxide 21 (21-32) mmol/L Anion Gap 10 (3-11) BUN 7 (6-23) mg/dl Creatinine 0.60 (0.6-1.2) mg/dl Est Cr Clr Drug Dosing 184.8 ml/min Est GFR ( Amer) 135.9 ml/min Est GFR (Non-Af Amer) 117.3 ml/min BUN/Creatinine Ratio 11.7 (10-20) Glucose 119 H (70-99(Fasting)) mg/dl Uric Acid (2.6-7.2) mg/dl Calcium 7.8 L (8.5-10.1) mg/dl Magnesium (Sulf Ther) 4.4 4.6 (4.0-8.0) mg/dL Total Bilirubin 0.4 (0.2-1.0) mg/dl AST 271 H (13-39) U/L ALT 392 H (7-52) U/L Alkaline Phosphatase 103 (34-104) U/L Lactate Dehydrogenase 253 H (86-244) U/L Total Protein 6.3 (6.0-8.3) gm/dl Albumin 3.4 (3.4-5.0) gm/dl Globulin 2.9 (2.5-4.0) gm/dl Albumin/Globulin Ratio 1.2 (0.9-2) Ur Random Creatinine mg/dl U Random Total Protein (0-11.9) mg/dl Protein/Creatinin Ratio (0-0.2) SARS-CoV-2, RNA, NAAT (NEGATIVE) Blood Type Antibody Screen 10/07/21 10/07/21 Range/Units 14:55 14:55 WBC 11.17 H (4.8-10.8) K/uL RBC 4.20 (4.2-5.4) M/uL Hgb 12.3 (12.0-16.0) g/dL Hct 37.1 (37-47) % MCV 88.3 (80-100) fL MCH 29.3 (25-34) pg MCHC 33.2 (32-36) g/dL RDW Std Deviation 48.3 H (36.4-46.3) fL RDW Coeff of Steve 15.0 H (11.5-14.5) % Plt Count 239 (130-400) K/uL MPV 10.6 H (7.4-10.4) fL Immature Gran % (Auto) 0.3 % Neut % (Auto) 83.8 % Lymph % (Auto) 10.8 % [place] % (Auto) 5.1 % Eos % (Auto) 0.0 % Baso % (Auto) 0.0 % Neut # (Auto) 9.36 H (1.4-6.5) K/uL Lymph # (Auto) 1.21 (1.2-3.4) K/uL [place] # (Auto) 0.57 (0.11-0.59) K/uL Eos # (Auto) 0.00 (0-0.5) K/uL Baso # (Auto) 0.00 (0-0.2) K/uL Immature Gran # (Auto) 0.03 H (0.00-0.02) K/uL PT (9.0-12.0) Seconds INR (0.9-1.1) APTT (21.0-31.0) Seconds PTT Ratio Fibrinogen (184-400) mg/dl Sodium (136-145) mmol/L Potassium (3.5-5.1) mmol/L Chloride (98-107) mmol/L Carbon Dioxide (21-32) mmol/L Anion Gap (3-11) BUN (6-23) mg/dl Creatinine (0.6-1.2) mg/dl Est Cr Clr Drug Dosing ml/min Est GFR ( Amer) ml/min Est GFR (Non-Af Amer) ml/min BUN/Creatinine Ratio (10-20) Glucose (70-99(Fasting)) mg/dl Uric Acid (2.6-7.2) mg/dl Calcium (8.5-10.1) mg/dl Magnesium (Sulf Ther) (4.0-8.0) mg/dL Total Bilirubin (0.2-1.0) mg/dl AST (13-39) U/L ALT (7-52) U/L Alkaline Phosphatase (34-104) U/L Lactate Dehydrogenase 268 H (86-244) U/L Total Protein (6.0-8.3) gm/dl Albumin (3.4-5.0) gm/dl Globulin (2.5-4.0) gm/dl Albumin/Globulin Ratio (0.9-2) Ur Random Creatinine mg/dl U Random Total Protein (0-11.9) mg/dl Protein/Creatinin Ratio (0-0.2) SARS-CoV-2, RNA, NAAT (NEGATIVE) Blood Type Antibody Screen Results & Data ([facility]) Vital Signs (Past 12 Hours) Vital Signs Temp Pulse Resp BP Pulse Ox 10/07/21 16:46 99 H 100 10/07/21 16:43 105 H 94 10/07/21 16:41 94 H 139/66 96 10/07/21 16:36 100 H 98 10/07/21 16:31 95 H 119/61 96 10/07/21 16:26 94 H 96 10/07/21 16:22 93 H 117/61 10/07/21 16:21 96 H 98 10/07/21 16:16 97 H 96 10/07/21 16:11 96 H 128/63 97 10/07/21 16:06 94 H 96 10/07/21 16:01 95 H 96 10/07/21 16:00 94 H 118/59 L 10/07/21 15:56 96 H 94 10/07/21 15:51 93 H 95 10/07/21 15:50 90 116/58 L 10/07/21 15:46 91 H 96 10/07/21 15:41 89 117/58 L 97 10/07/21 15:36 93 H 99 10/07/21 15:35 16 10/07/21 15:31 90 114/56 L 99 10/07/21 15:26 96 H 99 10/07/21 15:21 89 107/53 L 98 10/07/21 15:15 88 97 10/07/21 15:10 90 99 10/07/21 15:08 87 121/58 L 10/07/21 15:05 102 H 100 10/07/21 15:02 100 H 89/54 L 10/07/21 15:00 96 H 100 10/07/21 14:57 93 H 101/57 L 10/07/21 14:55 105 H 100 10/07/21 14:51 95 H 95/52 L 10/07/21 14:50 95 H 96 10/07/21 14:49 97 H 91/52 L 10/07/21 14:47 107 H 91/49 L 10/07/21 14:46 100 H 99/53 L 10/07/21 14:45 99 H 100 10/07/21 14:44 111 H 110/50 L 10/07/21 14:43 108 H 90 10/07/21 14:41 95 H 93/52 L 10/07/21 14:40 101 H 97 10/07/21 14:39 97 H 86/50 L 10/07/21 14:37 106 H 89/50 L 10/07/21 14:35 116 H 100 10/07/21 14:34 105 H 88/38 L 10/07/21 14:30 109 H 18 98 10/07/21 14:29 98 H 85 L 10/07/21 14:27 86 72/35 L 10/07/21 14:25 97 H 84/40 L 99 10/07/21 14:21 94 H 120/68 10/07/21 14:19 99 H 97 10/07/21 14:18 98 H 87/49 L 10/07/21 14:16 96 H 94/48 L 10/07/21 14:14 97 H 96 10/07/21 14:13 95 H 99/50 L 10/07/21 14:12 98 H 101/49 L 10/07/21 14:10 107 H 116/52 L 10/07/21 14:09 103 H 97 10/07/21 14:08 107 H 121/49 L 10/07/21 14:05 101 H 126/66 10/07/21 14:04 99 H 99 10/07/21 14:03 98 H 131/63 10/07/21 14:01 98 H 137/71 10/07/21 13:59 99 H 98 10/07/21 13:54 107 H 100 10/07/21 13:49 105 H 99 10/07/21 13:44 109 H 99 10/07/21 13:43 104 H 79 L 10/07/21 13:38 96 H 99 10/07/21 13:33 93 H 100 10/07/21 13:31 36.6 C 18 10/07/21 13:28 96 H 98 10/07/21 13:23 96 H 97 10/07/21 13:18 94 H 98 10/07/21 13:13 95 H 99 10/07/21 13:08 97 H 99 10/07/21 13:03 98 H 99 10/07/21 12:58 95 H 99 10/07/21 12:53 96 H 96 10/07/21 12:51 95 H 140/75 10/07/21 12:48 100 H 96 10/07/21 12:43 97 H 97 10/07/21 12:38 100 H 97 10/07/21 12:35 36.5 C 18 10/07/21 12:33 100 H 97 10/07/21 12:30 18 10/07/21 12:28 101 H 99 10/07/21 12:23 98 H 98 10/07/21 12:18 102 H 98 10/07/21 12:13 93 H 96 10/07/21 12:08 96 H 97 10/07/21 12:03 95 H 97 10/07/21 11:58 95 H 98 10/07/21 11:53 93 H 98 10/07/21 11:51 91 H 145/73 H 10/07/21 11:48 98 H 97 10/07/21 11:43 99 H 96 10/07/21 11:38 95 H 96 10/07/21 11:33 99 H 133/60 96 10/07/21 11:28 96 H 96 10/07/21 11:23 97 H 134/63 96 10/07/21 11:21 36.6 C 18 10/07/21 11:18 101 H 98 10/07/21 11:13 103 H 145/68 H 96 10/07/21 11:12 102 H 93 10/07/21 11:07 102 H 97 10/07/21 11:03 96 H 161/77 H 10/07/21 11:02 100 H 96 10/07/21 10:57 122 H 98 10/07/21 10:52 115 H 100 10/07/21 10:50 106 H 144/89 H 10/07/21 10:47 116 H 99 10/07/21 10:42 107 H 99 10/07/21 10:37 107 H 100 10/07/21 10:33 93 H 170/79 H 10/07/21 10:31 100 H 188/89 H 10/07/21 10:30 36.4 C L 100 H 18 97 10/07/21 10:25 100 H 99 10/07/21 10:20 104 H 97 10/07/21 10:15 99 H 96 10/07/21 10:10 103 H 96 10/07/21 10:05 101 H 98 10/07/21 10:03 106 H 93 10/07/21 10:00 102 H 96 10/07/21 09:55 105 H 98 10/07/21 09:50 105 H 99 10/07/21 09:45 106 H 98 10/07/21 09:40 110 H 98 10/07/21 09:35 106 H 97 10/07/21 09:32 109 H 143/78 H 10/07/21 09:30 111 H 18 98 10/07/21 09:25 115 H 97 10/07/21 09:20 107 H 98 10/07/21 09:15 115 H 99 10/07/21 09:10 112 H 99 10/07/21 09:06 106 H 175/97 H 10/07/21 09:05 118 H 97 10/07/21 09:00 118 H 98 10/07/21 08:55 118 H 99 10/07/21 08:50 119 H 98 10/07/21 08:44 106 H 99 10/07/21 08:39 101 H 99 10/07/21 08:37 108 H 148/87 H 93 10/07/21 08:34 102 H 98 10/07/21 08:29 107 H 97 10/07/21 08:24 102 H 98 10/07/21 08:19 102 H 97 10/07/21 08:14 100 H 97 10/07/21 08:12 36.4 C L 18 10/07/21 08:09 110 H 99 10/07/21 08:04 103 H 97 10/07/21 07:59 99 H 97 10/07/21 07:54 100 H 96 10/07/21 07:49 104 H 98 10/07/21 07:44 102 H 98 10/07/21 07:39 102 H 98 10/07/21 07:34 106 H 98 10/07/21 07:33 101 H 143/75 H 10/07/21 07:30 18 10/07/21 07:29 102 H 98 10/07/21 07:24 116 H 98 10/07/21 07:19 101 H 97 10/07/21 07:16 98 H 142/92 H 92 10/07/21 07:14 112 H 99 10/07/21 06:51 105 H 98 10/07/21 06:46 104 H 97 10/07/21 06:41 108 H 98 10/07/21 06:36 103 H 97 10/07/21 06:32 101 H 155/92 H 10/07/21 06:31 107 H 98 10/07/21 06:30 18 10/07/21 06:26 107 H 99 10/07/21 06:21 107 H 99 10/07/21 06:16 109 H 99 10/07/21 06:11 106 H 99 10/07/21 06:06 108 H 99 10/07/21 05:56 111 H 97 10/07/21 05:51 95 H 97 10/07/21 05:46 96 H 97 10/07/21 05:41 98 H 97 10/07/21 05:36 97 H 97 10/07/21 05:33 92 H 132/67 10/07/21 05:31 97 H 97 10/07/21 05:30 18 10/07/21 05:26 96 H 97 10/07/21 05:21 96 H 97 10/07/21 05:16 92 H 98 10/07/21 05:11 93 H 97 10/07/21 05:06 95 H 97 10/07/21 05:01 92 H 98 10/07/21 04:56 91 H 98
[2021-10-07] MEDS ORDERED: BETAMETH SOD PHOS/ACETATE IA 6 MG/ML IM STA (19:30)
[2021-10-07] MEDS: ESCITALOPRAM OXALATE 10 MG TAB PO SCH (20:37)
[2021-10-07] MEDS ORDERED: ACETAMINOPHEN 325 MG TAB ONE (20:56)
[2021-10-07] MEDS ORDERED: ACETAMINOPHEN 325 MG TAB PO PRN (20:56)
--- NOTE | 2021-10-07 20:57 | Obstetrical Progress Note ---
Date of Service October 07, 2021 Assessment & Plan Admission and Anticipated Discharge Date Admission Date: October 06, 2021 Subjective Patient is reevaluated There has been no change in cervix since AROM, pitocin which has been slowly increased Pitocin is now at 20 miu/min VSS Afebrile Patient feels well other than mild WINST[place], no Change in vision/ epig or RUQ apin. Nausea+, no vomiting FHR had been categ I VE: unchanged at 4/ 50%/ -2, coned head, clear amniotic fluid seen+ 2nd dose of Betamethasone, 3rd dose of PCN and PO Labetalo were given. Continue to monitor closely, change position with peanut ball, recheck labs and and reevaluate. Results & Data ([facility]) Vital Signs (Past 12 Hours) Vital Signs Temp Pulse Resp BP Pulse Ox 10/07/21 20:51 103 H 98 10/07/21 20:46 98 H 99 10/07/21 20:41 100 H 99 10/07/21 20:36 105 H 99 10/07/21 20:34 96 H 145/73 H 10/07/21 20:31 103 H 99 10/07/21 20:29 98 H 139/77 10/07/21 20:26 101 H 98 10/07/21 20:21 98 H 98 10/07/21 20:16 101 H 100 10/07/21 20:11 100 H 97 10/07/21 20:06 98 H 96 10/07/21 20:04 102 H 136/65 10/07/21 20:01 102 H 96 10/07/21 19:56 102 H 96 10/07/21 19:51 101 H 96 10/07/21 19:46 100 H 96 10/07/21 19:41 102 H 96 10/07/21 19:36 96 H 95 10/07/21 19:34 100 H 136/71 10/07/21 19:31 100 H 97 10/07/21 19:26 97 H 97 10/07/21 19:21 94 H 96 10/07/21 19:20 36.6 C 18 10/07/21 19:16 101 H 99 10/07/21 19:11 102 H 99 10/07/21 19:06 100 H 95 10/07/21 19:04 96 H 146/72 H 10/07/21 19:01 95 H 96 10/07/21 18:56 93 H 96 10/07/21 18:55 18 10/07/21 18:51 106 H 96 10/07/21 18:46 96 H 97 10/07/21 18:41 96 H 98 10/07/21 18:37 36.5 C 18 10/07/21 18:36 98 H 96 10/07/21 18:34 90 167/78 H 10/07/21 18:31 102 H 96 10/07/21 18:26 99 H 98 10/07/21 18:25 18 10/07/21 18:21 98 H 100 10/07/21 18:16 97 H 99 10/07/21 18:11 102 H 97 10/07/21 18:09 18 10/07/21 18:06 98 H 99 10/07/21 18:04 99 H 134/70 10/07/21 18:01 100 H 99 10/07/21 17:56 94 H 97 10/07/21 17:55 18 10/07/21 17:51 99 H 99 10/07/21 17:46 101 H 98 10/07/21 17:41 99 H 99 10/07/21 17:36 98 H 99 10/07/21 17:34 100 H 131/62 10/07/21 17:31 99 H 99 10/07/21 17:26 97 H 98 10/07/21 17:25 18 10/07/21 17:21 95 H 98 10/07/21 17:16 98 H 99 10/07/21 17:11 98 H 98 10/07/21 17:06 102 H 99 10/07/21 17:01 101 H 133/60 98 10/07/21 16:56 100 H 98 10/07/21 16:55 18 10/07/21 16:53 103 H 147/71 H 10/07/21 16:51 103 H 99 10/07/21 16:48 36.5 C 18 10/07/21 16:46 99 H 100 10/07/21 16:43 105 H 94 10/07/21 16:41 94 H 139/66 96 10/07/21 16:36 100 H 98 10/07/21 16:31 95 H 119/61 96 10/07/21 16:26 94 H 96 10/07/21 16:25 18 10/07/21 16:22 93 H 117/61 10/07/21 16:21 96 H 98 10/07/21 16:16 97 H 96 10/07/21 16:11 96 H 128/63 97 10/07/21 16:06 94 H 96 10/07/21 16:01 95 H 96 10/07/21 16:00 94 H 118/59 L 10/07/21 15:56 96 H 94 10/07/21 15:51 93 H 95 10/07/21 15:50 90 116/58 L 10/07/21 15:46 91 H 96 10/07/21 15:41 89 117/58 L 97 10/07/21 15:36 93 H 99 10/07/21 15:35 16 10/07/21 15:31 90 114/56 L 99 10/07/21 15:26 96 H 99 10/07/21 15:21 89 107/53 L 98 10/07/21 15:15 88 97 10/07/21 15:10 90 99 10/07/21 15:08 87 121/58 L 10/07/21 15:05 102 H 100 10/07/21 15:02 100 H 89/54 L 10/07/21 15:00 96 H 100 10/07/21 14:57 93 H 101/57 L 10/07/21 14:55 105 H 100 10/07/21 14:51 95 H 95/52 L 10/07/21 14:50 95 H 96 10/07/21 14:49 97 H 91/52 L 10/07/21 14:47 107 H 91/49 L 10/07/21 14:46 100 H 99/53 L 10/07/21 14:45 99 H 100 10/07/21 14:44 111 H 110/50 L 10/07/21 14:43 108 H 90 10/07/21 14:41 95 H 93/52 L 10/07/21 14:40 101 H 97 10/07/21 14:39 97 H 86/50 L 10/07/21 14:37 106 H 89/50 L 10/07/21 14:35 116 H 100 10/07/21 14:34 105 H 88/38 L 10/07/21 14:30 109 H 18 98 10/07/21 14:29 98 H 85 L 10/07/21 14:27 86 72/35 L 10/07/21 14:25 97 H 84/40 L 99 10/07/21 14:21 94 H 120/68 10/07/21 14:19 99 H 97 10/07/21 14:18 98 H 87/49 L 10/07/21 14:16 96 H 94/48 L 10/07/21 14:14 97 H 96 10/07/21 14:13 95 H 99/50 L 10/07/21 14:12 98 H 101/49 L 10/07/21 14:10 107 H 116/52 L 10/07/21 14:09 103 H 97 10/07/21 14:08 107 H 121/49 L 10/07/21 14:05 101 H 126/66 10/07/21 14:04 99 H 99 10/07/21 14:03 98 H 131/63 10/07/21 14:01 98 H 137/71 10/07/21 13:59 99 H 98 10/07/21 13:54 107 H 100 10/07/21 13:49 105 H 99 10/07/21 13:44 109 H 99 10/07/21 13:43 104 H 79 L 10/07/21 13:38 96 H 99 10/07/21 13:33 93 H 100 10/07/21 13:31 36.6 C 18 10/07/21 13:28 96 H 98 10/07/21 13:23 96 H 97 10/07/21 13:18 94 H 98 10/07/21 13:13 95 H 99 10/07/21 13:08 97 H 99 10/07/21 13:03 98 H 99 10/07/21 12:58 95 H 99 10/07/21 12:53 96 H 96 10/07/21 12:51 95 H 140/75 10/07/21 12:48 100 H 96 10/07/21 12:43 97 H 97 10/07/21 12:38 100 H 97 10/07/21 12:35 36.5 C 18 10/07/21 12:33 100 H 97 10/07/21 12:30 18 10/07/21 12:28 101 H 99 10/07/21 12:23 98 H 98 10/07/21 12:18 102 H 98 10/07/21 12:13 93 H 96 10/07/21 12:08 96 H 97 10/07/21 12:03 95 H 97 10/07/21 11:58 95 H 98 10/07/21 11:53 93 H 98 10/07/21 11:51 91 H 145/73 H 10/07/21 11:48 98 H 97 10/07/21 11:43 99 H 96 10/07/21 11:38 95 H 96 10/07/21 11:33 99 H 133/60 96 10/07/21 11:28 96 H 96 10/07/21 11:23 97 H 134/63 96 10/07/21 11:21 36.6 C 18 10/07/21 11:18 101 H 98 10/07/21 11:13 103 H 145/68 H 96 10/07/21 11:12 102 H 93 10/07/21 11:07 102 H 97 10/07/21 11:03 96 H 161/77 H 10/07/21 11:02 100 H 96 10/07/21 10:57 122 H 98 10/07/21 10:52 115 H 100 10/07/21 10:50 106 H 144/89 H 10/07/21 10:47 116 H 99 10/07/21 10:42 107 H 99 10/07/21 10:37 107 H 100 10/07/21 10:33 93 H 170/79 H 10/07/21 10:31 100 H 188/89 H 10/07/21 10:30 36.4 C L 100 H 18 97 10/07/21 10:25 100 H 99 10/07/21 10:20 104 H 97 10/07/21 10:15 99 H 96 10/07/21 10:10 103 H 96 10/07/21 10:05 101 H 98 10/07/21 10:03 106 H 93 10/07/21 10:00 102 H 96 10/07/21 09:55 105 H 98 10/07/21 09:50 105 H 99 10/07/21 09:45 106 H 98 10/07/21 09:40 110 H 98 10/07/21 09:35 106 H 97 10/07/21 09:32 109 H 143/78 H 10/07/21 09:30 111 H 18 98 10/07/21 09:25 115 H 97 10/07/21 09:20 107 H 98 10/07/21 09:15 115 H 99 10/07/21 09:10 112 H 99 10/07/21 09:06 106 H 175/97 H 10/07/21 09:05 118 H 97 10/07/21 09:00 118 H 98
[2021-10-07] MEDS ORDERED: DOCUSATE SODIUM 100 MG CAP PO SCH (21:00)
[2021-10-07 21:57] LABS: Hematocrit (blood only) 33.3 % (37-47); Hemoglobin 11.3 g/dL (12.0-16.0); Mean Corpuscular Hgb Conc 33.9 g/dL (32-36); Mean Corpuscular Volume 88.3 fL (80-100); Mean Platelet Volume 10.1 fL (7.4-10.4); Platelet Count 217 K/uL (130-400); RDW Coefficient of Variation 15.3 % (11.5-14.5); RDW Standard Deviation 48.9 fL (36.4-46.3); Red Blood Count 3.77 M/uL (4.2-5.4); White Blood Count 10.21 K/uL (4.8-10.8)
[2021-10-07 22:10] LABS: Fibrinogen 638 mg/dl (184-400); INR 0.9 (0.9-1.1); Partial Thromboplastin Ratio 0.9; Partial Thromboplastin Time 25.1 Seconds (21.0-31.0); Prothrombin Time 9.5 Seconds (9.0-12.0)
[2021-10-07 22:19] LABS: Albumin Globulin Ratio 1.2 (0.9-2); Albumin Level 3.1 gm/dl (3.4-5.0); BUN Creatinine Ratio 12.7 (10-20); Bilirubin,Total 0.5 mg/dl (0.2-1.0); Calcium 7.3 mg/dl (8.5-10.1); Creatinine Clr Calc Pharmacy 201.6 ml/min; Est GFR (African American) 139.9 ml/min; Est GFR (Non-African American) 120.7 ml/min; Globulin 2.6 gm/dl (2.5-4.0); Magnesium 4.3 mg/dl (1.7-2.4); Potassium 3.8 mmol/L (3.5-5.1); Total Protein 5.7 gm/dl (6.0-8.3)
[2021-10-07] MEDS ORDERED: SODIUM CHLORIDE 0.9% 250 ML IV PRN (23:38)
[2021-10-08] MEDS ORDERED: CITRIC ACID/SODIUM CITRATE 15 ML UDC PO ONE (00:29)
[2021-10-08] MEDS ORDERED: LACTATED RINGER'S 1,000 ML IV SCH ×2 (00:30→03:15)
[2021-10-08] MEDS ORDERED: AZITHROMYCIN 500 MG in DEXTROSE 5% 250 ML IV ONE (00:30)
--- NOTE | 2021-10-08 00:30 | Obstetrical Progress Note ---
Date of Service October 08, 2021 Assessment & Plan Admission and Anticipated Discharge Date Admission Date: October 06, 2021 Subjective Patient is reevaluated. There was no change in her cervix about an hour ago when I place [facility]. Patient has been showing adequate contractions more than 200 [place] units in 10 minutes. Recheck her cervix now and has been the same at 45 cm dilated 60% effaced -2 station and still posterior and high. heart rate category 1, [place] with regular and good amplitude contractions every 2 to 3 minutes. Discussed the findings above and worsening liver function and recommended delivery via primary . Patient understands the risks of C section as a major surgery, bleeding , infection, injury to surrounding organs like bowels, bladder, ureters, adhesions, scarring, wound infection, blood cloths in legs/ lungs, longer recovery She signed an informed consent. Questions were answered. Labs as below. Lab Results 10/06/21 10/06/21 10/06/21 Range/Units 16:48 16:52 16:52 WBC 11.21 H (4.8-10.8) K/uL RBC 4.25 (4.2-5.4) M/uL Hgb 12.5 (12.0-16.0) g/dL Hct 37.1 (37-47) % MCV 87.3 (80-100) fL MCH 29.4 (25-34) pg MCHC 33.7 (32-36) g/dL RDW Std Deviation 46.9 H (36.4-46.3) fL RDW Coeff of Steve 14.9 H (11.5-14.5) % Plt Count 228 (130-400) K/uL MPV 10.2 (7.4-10.4) fL Immature Gran % (Auto) 0.3 % Neut % (Auto) 85.9 % Lymph % (Auto) 9.8 % [place] % (Auto) 3.9 % Eos % (Auto) 0.1 % Baso % (Auto) 0.0 % Neut # (Auto) 9.63 H (1.4-6.5) K/uL Lymph # (Auto) 1.10 L (1.2-3.4) K/uL Canadian # (Auto) 0.44 (0.11-0.59) K/uL Eos # (Auto) 0.01 (0-0.5) K/uL Baso # (Auto) 0.00 (0-0.2) K/uL Immature Gran # (Auto) 0.03 H (0.00-0.02) K/uL PT (9.0-12.0) Seconds INR (0.9-1.1) APTT (21.0-31.0) Seconds PTT Ratio Fibrinogen (184-400) mg/dl Sodium 133 L (136-145) mmol/L Potassium 3.7 (3.5-5.1) mmol/L Chloride 105 (98-107) mmol/L Carbon Dioxide 20 L (21-32) mmol/L Anion Gap 8 (3-11) BUN 8 (6-23) mg/dl Creatinine 0.53 L (0.6-1.2) mg/dl Est Cr Clr Drug Dosing 209.2 ml/min Est GFR ( Amer) 141.6 ml/min Est GFR (Non-Af Amer) 122.2 ml/min BUN/Creatinine Ratio 15.1 (10-20) Glucose 118 H (70-99(Fasting)) mg/dl Uric Acid (2.6-7.2) mg/dl Calcium 8.9 (8.5-10.1) mg/dl Magnesium (1.7-2.4) mg/dl Magnesium (Sulf Ther) (4.0-8.0) mg/dL Total Bilirubin 0.4 (0.2-1.0) mg/dl AST 81 H (13-39) U/L ALT 170 H (7-52) U/L Alkaline Phosphatase 104 (34-104) U/L Lactate Dehydrogenase (86-244) U/L Total Protein 6.2 (6.0-8.3) gm/dl Albumin 3.4 (3.4-5.0) gm/dl Globulin 2.8 (2.5-4.0) gm/dl Albumin/Globulin Ratio 1.2 (0.9-2) Ur Random Creatinine 106.0 mg/dl U Random Total Protein 54.3 H (0-11.9) mg/dl Protein/Creatinin Ratio 0.5 H (0-0.2) SARS-CoV-2, RNA, NAAT (NEGATIVE) Blood Type Blood Type Recheck Antibody Screen Crossmatch 10/06/21 10/06/2110/06/22 Range/Units 18:43 19:26 19:26 WBC (4.8-10.8) K/uL RBC (4.2-5.4) M/uL Hgb (12.0-16.0) g/dL Hct (37-47) % MCV (80-100) fL MCH (25-34) pg MCHC (32-36) g/dL RDW Std Deviation (36.4-46.3) fL RDW Coeff of Steve (11.5-14.5) % Plt Count (130-400) K/uL MPV (7.4-10.4) fL Immature Gran % (Auto) % Neut % (Auto) % Lymph % (Auto) % [place] % (Auto) % Eos % (Auto) % Baso % (Auto) % Neut # (Auto) (1.4-6.5) K/uL Lymph # (Auto) (1.2-3.4) K/uL Canadian # (Auto) (0.11-0.59) K/uL Eos # (Auto) (0-0.5) K/uL Baso # (Auto) (0-0.2) K/uL Immature Gran # (Auto) (0.00-0.02) K/uL PT (9.0-12.0) Seconds INR (0.9-1.1) APTT (21.0-31.0) Seconds PTT Ratio Fibrinogen (184-400) mg/dl Sodium (136-145) mmol/L Potassium (3.5-5.1) mmol/L Chloride (98-107) mmol/L Carbon Dioxide (21-32) mmol/L Anion Gap (3-11) BUN (6-23) mg/dl Creatinine (0.6-1.2) mg/dl Est Cr Clr Drug Dosing ml/min Est GFR ( Amer) ml/min Est GFR (Non-Af Amer) ml/min BUN/Creatinine Ratio (10-20) Glucose (70-99(Fasting)) mg/dl Uric Acid 4.8 (2.6-7.2) mg/dl Calcium (8.5-10.1) mg/dl Magnesium (1.7-2.4) mg/dl Magnesium (Sulf Ther) (4.0-8.0) mg/dL Total Bilirubin (0.2-1.0) mg/dl AST (13-39) U/L ALT (7-52) U/L Alkaline Phosphatase (34-104) U/L Lactate Dehydrogenase 160 (86-244) U/L Total Protein (6.0-8.3) gm/dl Albumin (3.4-5.0) gm/dl Globulin (2.5-4.0) gm/dl Albumin/Globulin Ratio (0.9-2) Ur Random Creatinine mg/dl U Random Total Protein (0-11.9) mg/dl Protein/Creatinin Ratio (0-0.2) SARS-CoV-2, RNA, NAAT NEGATIVE (NEGATIVE) Blood Type Blood Type Recheck Antibody Screen Crossmatch 10/06/21 10/06/21 10/07/21 Range/Units 19:26 19:26 05:55 WBC 12.83 H (4.8-10.8) K/uL RBC 4.20 (4.2-5.4) M/uL Hgb 12.5 (12.0-16.0) g/dL Hct 37.0 (37-47) % MCV 88.1 (80-100) fL MCH 29.8 (25-34) pg MCHC 33.8 (32-36) g/dL RDW Std Deviation 47.9 H (36.4-46.3) fL RDW Coeff of Steve 14.9 H (11.5-14.5) % Plt Count 242 (130-400) K/uL MPV 10.6 H (7.4-10.4) fL Immature Gran % (Auto) % Neut % (Auto) % Lymph % (Auto) % [place] % (Auto) % Eos % (Auto) % Baso % (Auto) % Neut # (Auto) (1.4-6.5) K/uL Lymph # (Auto) (1.2-3.4) K/uL [place] # (Auto) (0.11-0.59) K/uL Eos # (Auto) (0-0.5) K/uL Baso # (Auto) (0-0.2) K/uL Immature Gran # (Auto) (0.00-0.02) K/uL PT (9.0-12.0) Seconds INR (0.9-1.1) APTT (21.0-31.0) Seconds PTT Ratio Fibrinogen (184-400) mg/dl Sodium (136-145) mmol/L Potassium (3.5-5.1) mmol/L Chloride (98-107) mmol/L Carbon Dioxide (21-32) mmol/L Anion Gap (3-11) BUN (6-23) mg/dl Creatinine (0.6-1.2) mg/dl Est Cr Clr Drug Dosing ml/min Est GFR ( Amer) ml/min Est GFR (Non-Af Amer) ml/min BUN/Creatinine Ratio (10-20) Glucose (70-99(Fasting)) mg/dl Uric Acid (2.6-7.2) mg/dl Calcium (8.5-10.1) mg/dl Magnesium (1.7-2.4) mg/dl Magnesium (Sulf Ther) 4.6 (4.0-8.0) mg/dL Total Bilirubin (0.2-1.0) mg/dl AST (13-39) U/L ALT (7-52) U/L Alkaline Phosphatase (34-104) U/L Lactate Dehydrogenase (86-244) U/L Total Protein (6.0-8.3) gm/dl Albumin (3.4-5.0) gm/dl Globulin (2.5-4.0) gm/dl Albumin/Globulin Ratio (0.9-2) Ur Random Creatinine mg/dl U Random Total Protein (0-11.9) mg/dl Protein/Creatinin Ratio (0-0.2) SARS-CoV-2, RNA, NAAT (NEGATIVE) Blood Type O Negative Blood Type Recheck Antibody Screen NEGATIVE Crossmatch See Detail 10/07/21 10/07/21 10/07/21 Range/Units 09:04 09:04 09:04 WBC 11.77 H (4.8-10.8) K/uL RBC 4.43 (4.2-5.4) M/uL Hgb 13.0 (12.0-16.0) g/dL Hct 38.5 (37-47) % MCV 86.9 (80-100) fL MCH 29.3 (25-34) pg MCHC 33.8 (32-36) g/dL RDW Std Deviation 47.2 H (36.4-46.3) fL RDW Coeff of Steve 14.9 H (11.5-14.5) % Plt Count 265 (130-400) K/uL MPV 10.4 (7.4-10.4) fL Immature Gran % (Auto) 0.4 % Neut % (Auto) 86.1 % Lymph % (Auto) 10.5 % [place] % (Auto) 2.9 % Eos % (Auto) 0.0 % Baso % (Auto) 0.1 % Neut # (Auto) 10.13 H (1.4-6.5) K/uL Lymph # (Auto) 1.24 (1.2-3.4) K/uL [place] # (Auto) 0.34 (0.11-0.59) K/uL Eos # (Auto) 0.00 (0-0.5) K/uL Baso # (Auto) 0.01 (0-0.2) K/uL Immature Gran # (Auto) 0.05 H (0.00-0.02) K/uL PT 9.6 (9.0-12.0) Seconds INR 0.9 (0.9-1.1) APTT 24.3 (21.0-31.0) Seconds PTT Ratio 0.9 Fibrinogen 707 H (184-400) mg/dl Sodium 132 L (136-145) mmol/L Potassium 4.0 (3.5-5.1) mmol/L Chloride 103 (98-107) mmol/L Carbon Dioxide 20 L (21-32) mmol/L Anion Gap 9 (3-11) BUN 6 (6-23) mg/dl Creatinine 0.50 L (0.6-1.2) mg/dl Est Cr Clr Drug Dosing 221.7 ml/min Est GFR ( Amer) 144.3 ml/min Est GFR (Non-Af Amer) 124.5 ml/min BUN/Creatinine Ratio 12.0 (10-20) Glucose 108 H (70-99(Fasting)) mg/dl Uric Acid (2.6-7.2) mg/dl Calcium 7.7 L (8.5-10.1) mg/dl Magnesium (1.7-2.4) mg/dl Magnesium (Sulf Ther) (4.0-8.0) mg/dL Total Bilirubin 0.6 (0.2-1.0) mg/dl AST 212 H (13-39) U/L ALT 326 H (7-52) U/L Alkaline Phosphatase 112 H (34-104) U/L Lactate Dehydrogenase (86-244) U/L Total Protein 6.7 (6.0-8.3) gm/dl Albumin 3.6 (3.4-5.0) gm/dl Globulin 3.1 (2.5-4.0) gm/dl Albumin/Globulin Ratio 1.2 (0.9-2) Ur Random Creatinine mg/dl U Random Total Protein (0-11.9) mg/dl Protein/Creatinin Ratio (0-0.2) SARS-CoV-2, RNA, NAAT (NEGATIVE) Blood Type Blood Type Recheck Antibody Screen Crossmatch 10/07/21 10/07/21 10/07/21 Range/Units 09:04 09:04 12:01 WBC (4.8-10.8) K/uL RBC (4.2-5.4) M/uL Hgb (12.0-16.0) g/dL Hct (37-47) % MCV (80-100) fL MCH (25-34) pg MCHC (32-36) g/dL RDW Std Deviation (36.4-46.3) fL RDW Coeff of Steve (11.5-14.5) % Plt Count (130-400) K/uL MPV (7.4-10.4) fL Immature Gran % (Auto) % Neut % (Auto) % Lymph % (Auto) % [place] % (Auto) % Eos % (Auto) % Baso % (Auto) % Neut # (Auto) (1.4-6.5) K/uL Lymph # (Auto) (1.2-3.4) K/uL [place] # (Auto) (0.11-0.59) K/uL Eos # (Auto) (0-0.5) K/uL Baso # (Auto) (0-0.2) K/uL Immature Gran # (Auto) (0.00-0.02) K/uL PT (9.0-12.0) Seconds INR (0.9-1.1) APTT (21.0-31.0) Seconds PTT Ratio Fibrinogen (184-400) mg/dl Sodium (136-145) mmol/L Potassium (3.5-5.1) mmol/L Chloride (98-107) mmol/L Carbon Dioxide (21-32) mmol/L Anion Gap (3-11) BUN (6-23) mg/dl Creatinine (0.6-1.2) mg/dl Est Cr Clr Drug Dosing ml/min Est GFR ( Amer) ml/min Est GFR (Non-Af Amer) ml/min BUN/Creatinine Ratio (10-20) Glucose (70-99(Fasting)) mg/dl Uric Acid (2.6-7.2) mg/dl Calcium (8.5-10.1) mg/dl Magnesium (1.7-2.4) mg/dl Magnesium (Sulf Ther) 4.4 (4.0-8.0) mg/dL Total Bilirubin (0.2-1.0) mg/dl AST (13-39) U/L ALT (7-52) U/L Alkaline Phosphatase (34-104) U/L Lactate Dehydrogenase 253 H (86-244) U/L Total Protein (6.0-8.3) gm/dl Albumin (3.4-5.0) gm/dl Globulin (2.5-4.0) gm/dl Albumin/Globulin Ratio (0.9-2) Ur Random Creatinine mg/dl U Random Total Protein (0-11.9) mg/dl Protein/Creatinin Ratio (0-0.2) SARS-CoV-2, RNA, NAAT (NEGATIVE) Blood Type Blood Type Recheck O Negative Antibody Screen Crossmatch 10/07/21 10/07/21 10/07/21 Range/Units 14:55 14:55 14:55 WBC 11.17 H (4.8-10.8) K/uL RBC 4.20 (4.2-5.4) M/uL Hgb 12.3 (12.0-16.0) g/dL Hct 37.1 (37-47) % MCV 88.3 (80-100) fL MCH 29.3 (25-34) pg MCHC 33.2 (32-36) g/dL RDW Std Deviation 48.3 H (36.4-46.3) fL RDW Coeff of Steve 15.0 H (11.5-14.5) % Plt Count 239 (130-400) K/uL MPV 10.6 H (7.4-10.4) fL Immature Gran % (Auto) 0.3 % Neut % (Auto) 83.8 % Lymph % (Auto) 10.8 % [place] % (Auto) 5.1 % Eos % (Auto) 0.0 % Baso % (Auto) 0.0 % Neut # (Auto) 9.36 H (1.4-6.5) K/uL Lymph # (Auto) 1.21 (1.2-3.4) K/uL [place] # (Auto) 0.57 (0.11-0.59) K/uL Eos # (Auto) 0.00 (0-0.5) K/uL Baso # (Auto) 0.00 (0-0.2) K/uL Immature Gran # (Auto) 0.03 H (0.00-0.02) K/uL PT (9.0-12.0) Seconds INR (0.9-1.1) APTT (21.0-31.0) Seconds PTT Ratio Fibrinogen (184-400) mg/dl Sodium 134 L (136-145) mmol/L Potassium 3.9 (3.5-5.1) mmol/L Chloride 103 (98-107) mmol/L Carbon Dioxide 21 (21-32) mmol/L Anion Gap 10 (3-11) BUN 7 (6-23) mg/dl Creatinine 0.60 (0.6-1.2) mg/dl Est Cr Clr Drug Dosing 184.8 ml/min Est GFR ( Amer) 135.9 ml/min Est GFR (Non-Af Amer) 117.3 ml/min BUN/Creatinine Ratio 11.7 (10-20) Glucose 119 H (70-99(Fasting)) mg/dl Uric Acid (2.6-7.2) mg/dl Calcium 7.8 L (8.5-10.1) mg/dl Magnesium (1.7-2.4) mg/dl Magnesium (Sulf Ther) 4.6 (4.0-8.0) mg/dL Total Bilirubin 0.4 (0.2-1.0) mg/dl AST 271 H (13-39) U/L ALT 392 H (7-52) U/L Alkaline Phosphatase 103 (34-104) U/L Lactate Dehydrogenase 268 H (86-244) U/L Total Protein 6.3 (6.0-8.3) gm/dl Albumin 3.4 (3.4-5.0) gm/dl Globulin 2.9 (2.5-4.0) gm/dl Albumin/Globulin Ratio 1.2 (0.9-2) Ur Random Creatinine mg/dl U Random Total Protein (0-11.9) mg/dl Protein/Creatinin Ratio (0-0.2) SARS-CoV-2, RNA, NAAT (NEGATIVE) Blood Type Blood Type Recheck Antibody Screen Crossmatch 10/07/21 10/07/21 10/07/21 Range/Units 21:45 21:45 21:45 WBC 10.21 (4.8-10.8) K/uL RBC 3.77 L (4.2-5.4) M/uL Hgb 11.3 L (12.0-16.0) g/dL Hct 33.3 L (37-47) % MCV 88.3 (80-100) fL MCH 30.0 (25-34) pg MCHC 33.9 (32-36) g/dL RDW Std Deviation 48.9 H (36.4-46.3) fL RDW Coeff of Steve 15.3 H (11.5-14.5) % Plt Count 217 (130-400) K/uL MPV 10.1 (7.4-10.4) fL Immature Gran % (Auto) % Neut % (Auto) % Lymph % (Auto) % [place] % (Auto) % Eos % (Auto) % Baso % (Auto) % Neut # (Auto) (1.4-6.5) K/uL Lymph # (Auto) (1.2-3.4) K/uL [place] # (Auto) (0.11-0.59) K/uL Eos # (Auto) (0-0.5) K/uL Baso # (Auto) (0-0.2) K/uL Immature Gran # (Auto) (0.00-0.02) K/uL PT 9.5 (9.0-12.0) Seconds INR 0.9 (0.9-1.1) APTT 25.1 (21.0-31.0) Seconds PTT Ratio 0.9 Fibrinogen 638 H (184-400) mg/dl Sodium 130 L (136-145) mmol/L Potassium 3.8 (3.5-5.1) mmol/L Chloride 101 (98-107) mmol/L Carbon Dioxide 21 (21-32) mmol/L Anion Gap 8 (3-11) BUN 7 (6-23) mg/dl Creatinine 0.55 L (0.6-1.2) mg/dl Est Cr Clr Drug Dosing 201.6 ml/min Est GFR ( Amer) 139.9 ml/min Est GFR (Non-Af Amer) 120.7 ml/min BUN/Creatinine Ratio 12.7 (10-20) Glucose 124 H (70-99(Fasting)) mg/dl Uric Acid (2.6-7.2) mg/dl Calcium 7.3 L (8.5-10.1) mg/dl Magnesium 4.3 H (1.7-2.4) mg/dl Magnesium (Sulf Ther) (4.0-8.0) mg/dL Total Bilirubin 0.5 (0.2-1.0) mg/dl AST 302 H (13-39) U/L ALT 433 H (7-52) U/L Alkaline Phosphatase 93 (34-104) U/L Lactate Dehydrogenase (86-244) U/L Total Protein 5.7 L (6.0-8.3) gm/dl Albumin 3.1 L (3.4-5.0) gm/dl Globulin 2.6 (2.5-4.0) gm/dl Albumin/Globulin Ratio 1.2 (0.9-2) Ur Random Creatinine mg/dl U Random Total Protein (0-11.9) mg/dl Protein/Creatinin Ratio (0-0.2) SARS-CoV-2, RNA, NAAT (NEGATIVE) Blood Type Blood Type Recheck Antibody Screen Crossmatch Results & Data ([facility]) Vital Signs (Past 12 Hours) Vital Signs Temp Pulse Resp BP Pulse Ox 10/08/21 00:21 85 98 10/08/21 00:16 91 H 98 10/08/21 00:11 83 96 04/21/22 00:06 81 96 10/08/21 00:04 81 126/67 10/08/21 00:01 84 96 10/07/21 23:56 83 95 10/07/21 23:51 86 96 10/07/21 23:46 83 96 10/07/21 23:41 83 97 10/07/21 23:36 82 128/65 97 10/07/21 23:34 83 126/72 10/07/21 23:31 83 98 10/07/21 23:26 83 97 10/07/21 23:21 83 97 10/07/21 23:16 92 H 98 10/07/21 23:11 87 96 10/07/21 23:06 86 95 10/07/21 23:04 86 108/58 L 10/07/21 23:01 88 96 10/07/21 23:00 18 10/07/21 22:56 87 96 10/07/21 22:51 90 96 10/07/21 22:46 93 H 95 10/07/21 22:41 94 H 96 10/07/21 22:36 93 H 96 10/07/21 22:34 90 128/60 94 10/07/21 22:31 92 H 95 10/07/21 22:26 96 H 96 10/07/21 22:21 91 H 95 10/07/21 22:19 90 94 10/07/21 22:16 93 H 96 10/07/21 22:11 95 H 95 10/07/21 22:06 95 H 95 10/07/21 22:04 96 H 117/57 L 10/07/21 22:01 95 H 96 10/07/21 22:00 18 10/07/21 21:56 98 H 96 22 21:51 96 H 96 10/07/21 21:46 96 H 95 22 21:41 101 H 96 20 21:36 98 H 95 2022 21:34 99 H 120/58 L 10/07/21 21:31 99 H 96 10/07/21 21:26 101 H 96 10/07/21 21:21 102 H 96 2022 21:16 98 H 96 22 21:11 97 H 97 10/07/21 21:06 100 H 98 10/07/21 21:04 99 H 134/60 10/07/21 21:01 36.8 C 102 H 18 100 10/07/21 21:00 18 10/07/21 20:56 104 H 99 10/07/21 20:51 103 H 98 10/07/21 20:46 98 H 99 10/07/21 20:41 100 H 99 10/07/21 20:36 105 H 99 10/07/21 20:34 96 H 145/73 H 10/07/21 20:31 103 H 99 10/07/21 20:29 98 H 139/77 10/07/21 20:26 101 H 98 10/07/21 20:21 98 H 98 10/07/21 20:16 101 H 100 10/07/21 20:11 100 H 97 10/07/21 20:06 98 H 96 10/07/21 20:04 102 H 136/65 10/07/21 20:01 102 H 96 10/07/21 20:00 18 10/07/21 19:56 102 H 96 10/07/21 19:51 101 H 96 10/07/21 19:46 100 H 96 10/07/21 19:41 102 H 96 10/07/21 19:36 96 H 95 10/07/21 19:34 100 H 136/71 10/07/21 19:31 100 H 97 10/07/21 19:26 97 H 97 10/07/21 19:21 94 H 96 10/07/21 19:20 36.6 C 18 10/07/21 19:16 101 H 99 10/07/21 19:11 102 H 99 10/07/21 19:06 100 H 95 10/07/21 19:04 96 H 146/72 H 10/07/21 19:01 95 H 96 10/07/21 18:56 93 H 96 10/07/21 18:55 18 10/07/21 18:51 106 H 96 10/07/21 18:46 96 H 97 10/07/21 18:41 96 H 98 10/07/21 18:37 36.5 C 18 10/07/21 18:36 98 H 96 10/07/21 18:34 90 167/78 H 10/07/21 18:31 102 H 96 10/07/21 18:26 99 H 98 10/07/21 18:25 18 04/20/22 18:21 98 H 100 10/07/21 18:16 97 H 99 10/07/21 18:11 102 H 97 10/07/21 18:09 18 10/07/21 18:06 98 H 99 10/07/21 18:04 99 H 134/70 10/07/21 18:01 100 H 99 10/07/21 17:56 94 H 97 10/07/21 17:55 18 10/07/21 17:51 99 H 99 10/07/21 17:46 101 H 98 10/07/21 17:41 99 H 99 10/07/21 17:36 98 H 99 10/07/21 17:34 100 H 131/62 10/07/21 17:31 99 H 99 10/07/21 17:26 97 H 98 10/07/21 17:25 18 10/07/21 17:21 95 H 98 10/07/21 17:16 98 H 99 10/07/21 17:11 98 H 98 10/07/21 17:06 102 H 99 10/07/21 17:01 101 H 133/60 98 10/07/21 16:56 100 H 98 10/07/21 16:55 18 10/07/21 16:53 103 H 147/71 H 10/07/21 16:51 103 H 99 10/07/21 16:48 36.5 C 18 10/07/21 16:46 99 H 100 10/07/21 16:43 105 H 94 10/07/21 16:41 94 H 139/66 96 10/07/21 16:36 100 H 98 10/07/21 16:31 95 H 119/61 96 10/07/21 16:26 94 H 96 10/07/21 16:25 18 10/07/21 16:22 93 H 117/61 10/07/21 16:21 96 H 98 10/07/21 16:16 97 H 96 10/07/21 16:11 96 H 128/63 97 10/07/21 16:06 94 H 96 10/07/21 16:01 95 H 96 10/07/21 16:00 94 H 118/59 L 10/07/21 15:56 96 H 94 10/07/21 15:51 93 H 95 10/07/21 15:50 90 116/58 L 10/07/21 15:46 91 H 96 10/07/21 15:41 89 117/58 L 97 10/07/21 15:36 93 H 99 10/07/21 15:35 16 10/07/21 15:31 90 114/56 L 99 10/07/21 15:26 96 H 99 10/07/21 15:21 89 107/53 L 98 10/07/21 15:15 88 97 10/07/21 15:10 90 99 10/07/21 15:08 87 121/58 L 10/07/21 15:05 102 H 100 10/07/21 15:02 100 H 89/54 L 10/07/21 15:00 96 H 100 10/07/21 14:57 93 H 101/57 L 10/07/21 14:55 105 H 100 10/07/21 14:51 95 H 95/52 L 10/07/21 14:50 95 H 96 10/07/21 14:49 97 H 91/52 L 10/07/21 14:47 107 H 91/49 L 10/07/21 14:46 100 H 99/53 L 10/07/21 14:45 99 H 100 10/07/21 14:44 111 H 110/50 L 10/07/21 14:43 108 H 90 10/07/21 14:41 95 H 93/52 L 10/07/21 14:40 101 H 97 10/07/21 14:39 97 H 86/50 L 10/07/21 14:37 106 H 89/50 L 10/07/21 14:35 116 H 100 10/07/21 14:34 105 H 88/38 L 10/07/21 14:30 109 H 18 98 10/07/21 14:29 98 H 85 L 10/07/21 14:27 86 72/35 L 10/07/21 14:25 97 H 84/40 L 99 10/07/21 14:21 94 H 120/68 10/07/21 14:19 99 H 97 10/07/21 14:18 98 H 87/49 L 10/07/21 14:16 96 H 94/48 L 10/07/21 14:14 97 H 96 10/07/21 14:13 95 H 99/50 L 10/07/21 14:12 98 H 101/49 L 10/07/21 14:10 107 H 116/52 L 10/07/21 14:09 103 H 97 10/07/21 14:08 107 H 121/49 L 10/07/21 14:05 101 H 126/66 10/07/21 14:04 99 H 99 10/07/21 14:03 98 H 131/63 10/07/21 14:01 98 H 137/71 10/07/21 13:59 99 H 98 10/07/21 13:54 107 H 100 10/07/21 13:49 105 H 99 10/07/21 13:44 109 H 99 10/07/21 13:43 104 H 79 L 10/07/21 13:38 96 H 99 10/07/21 13:33 93 H 100 10/07/21 13:31 36.6 C 18 10/07/21 13:28 96 H 98 10/07/21 13:23 96 H 97 10/07/21 13:18 94 H 98 10/07/21 13:13 95 H 99 10/07/21 13:08 97 H 99 10/07/21 13:03 98 H 99 10/07/21 12:58 95 H 99 10/07/21 12:53 96 H 96 10/07/21 12:51 95 H 140/75 10/07/21 12:48 100 H 96 10/07/21 12:43 97 H 97 10/07/21 12:38 100 H 97 10/07/21 12:35 36.5 C 18 10/07/21 12:33 100 H 97 10/07/21 12:30 18 10/07/21 12:28 101 H 99
[2021-10-08] MEDS ORDERED: ERYTHROMYCIN OP OINT 1 GM PKT ONE (00:36)
[2021-10-08] MEDS ORDERED: LIDOCAINE 2%/EPINEPHRINE 1:200,000 20 ML SDV ONE ×2 (00:43→02:41)
[2021-10-08] MEDS ORDERED: ONDANSETRON INJ 2 MG/ML 2 ML VIAL ONE (00:43)
[2021-10-08] MEDS ORDERED: OXYTOCIN 10 UNITS/ML 10ML VIAL ONE (00:44)
[2021-10-08] MEDS ORDERED: ePHEDrine sulfate 50 MG/ML AMP ONE (02:17)
[2021-10-08] MEDS ORDERED: PROMETHAZINE HCL INJ 25 MG/ML 1 ML VIAL ONE (02:33)
[2021-10-08] MEDS ORDERED: MoRPHine SULFATE PF 1 MG/ML 10 ML AMP/VIAL ONE (02:33)
[2021-10-08] MEDS ORDERED: MIDAZOLAM HCL 1 MG/ML 2ML VIAL ONE (02:39)
[2021-10-08] MEDS ORDERED: MAGNESIUM HYDROXIDE SUSP 30 ML UDC PO PRN (03:15)
[2021-10-08] MEDS ORDERED: ONDANSETRON INJ 2 MG/ML 2 ML VIAL IV PRN ×2 (03:15→03:23)
[2021-10-08] MEDS ORDERED: HYDROCORTISONE ACETATE 25 MG SUPP PR PRN (03:15)
[2021-10-08] MEDS ORDERED: DIPHTHERIA/TETANUS/PERTUSSIS 0.5 ML SYR/VIAL IM ONE (03:15)
[2021-10-08] MEDS ORDERED: MEASLES, MUMPS & RUBELLA VIRUS VIAL SQ ONE (03:15)
[2021-10-08] MEDS ORDERED: SENNA 8.6 MG TAB PO PRN (03:15)
[2021-10-08] MEDS ORDERED: BENZOCAINE 20% AER SPR 82.5 GM CAN EXT PRN (03:15)
--- NOTE | 2021-10-08 03:21 | Post Operative Brief Note ---
Immediate Post Op Note v1 Date of Surgery October 08, 2021 Pre & Post Diagnosis Operation Date: 10/08/21 00:45 Pre-Op Diagnosis: 1.) SeVere Pre Eclampsia with worsening features 2.) Arrest of Dilation despite adequate contractions I identified the patient and participated in the time-out.: Yes Procedure Operation Date: 10/08/21 00:45 Primary LTCS <No data on this case meets the specified criteria> Surgeon Kacie Quarles MD Treating Engineer Helper Dr Nicholson Estimated Blood Loss 600 Findings Consistent with Post-Op Diagnosis Anesthesia Type Labor Epidural Complications none Disposition Accompanied Patient To Recovery: Yes
[2021-10-08] MEDS ORDERED: PROMETHAZINE HCL 25 MG in SODIUM CHLORIDE 0.9% 50 ML IV PRN ×2 (03:23→21:43)
[2021-10-08] MEDS ORDERED: NALOXONE HCL 0.4 MG/1 ML VIAL/CARP IV PRN (03:23)
[2021-10-08] MEDS ORDERED: diphenhydrAMINE 50 MG/ML VIAL IV PRN ×2 (03:23→21:43)
[2021-10-08] MEDS ORDERED: NALOXONE HCL 0.08 MG in SYRINGE 1.8 ML IV PRN (03:23)
[2021-10-08] MEDS ORDERED: ePHEDrine sulfate 50 MG/ML AMP IV PRN (03:23)
[2021-10-08] MEDS ORDERED: LACTATED RINGER'S 500 ML IV PRN (03:23)
[2021-10-08] MEDS ORDERED: NALBUPHINE HCL INJ 10 MG/ML AMP IV PRN (03:23)
[2021-10-08] MEDS ORDERED: NALOXONE HCL 1 MG in SODIUM CHLORIDE 0.9% 1000ML 1,000 ML IV PRN (03:23)
[2021-10-08] MEDS ORDERED: KETOROLAC 30 MG/ML VIAL IV PRN ×2 (03:23→21:43)
[2021-10-08] MEDS ORDERED: MoRPHine SULFATE PF 1 MG/ML 10 ML AMP/VIAL EPI ONE (03:23)
[2021-10-08] MEDS ORDERED: HYDROmorphone INJ 0.5 MG/0.5 ML SYR IV PRN (03:23)
[2021-10-08] MEDS ORDERED: SODIUM CHLORIDE 0.9% 1000ML 1,000 ML IV SCH (03:30)
[2021-10-08] MEDS ORDERED: NO NARCOTICS OR SEDATIVES SCH (03:30)
[2021-10-08] MEDS ORDERED: DC INTRASPINAL MORPHINE SCH (03:30)
[2021-10-08] MEDS: OXYTOCIN 20 UNITS in LACTATED RINGER'S 1,000 ML IV SCH ×2 (04:10→15:48)
--- NOTE | 2021-10-08 04:47 | Anesthesiology Progress Note ---
Date of Service October 08, 2021 Anesthesia Post Procedure Vital Signs Vital Signs: Temp Pulse Resp BP Pulse Ox 10/08/21 04:43 87 92 10/08/21 04:38 86 93 10/08/21 04:37 84 94 10/08/21 04:36 82 127/62 10/08/21 04:33 88 93 10/08/21 04:28 85 94 10/08/21 04:26 85 129/63 10/08/21 04:23 85 94 10/08/21 04:21 82 94 10/08/21 04:18 84 95 10/08/21 04:16 74 112/57 L 10/08/21 04:14 81 93 10/08/21 04:13 82 96 10/08/21 04:08 88 94 10/08/21 04:06 76 115/58 L 10/08/21 04:03 82 95 10/08/21 04:02 80 94 10/08/21 03:58 85 97 10/08/21 03:56 80 113/58 L 94 10/08/21 03:53 80 96 10/08/21 03:48 80 97 10/08/21 03:46 80 109/59 L 10/08/21 03:43 83 95 10/08/21 03:38 81 97 10/08/21 03:35 81 112/56 L 10/08/21 03:33 82 96 10/08/21 01:38 86 106/59 L 10/08/21 01:26 90 96 10/08/21 01:23 90 128/67 10/08/21 01:21 89 96 10/08/21 01:20 90 131/70 10/08/21 01:16 89 96 10/08/21 01:14 92 H 134/70 10/08/21 01:00 18 10/08/21 00:46 88 98 10/08/21 00:41 86 99 10/08/21 00:36 87 98 10/08/21 00:34 84 176/84 H 10/08/21 00:31 90 18 98 10/08/21 00:30 36.8 C 18 10/08/21 00:26 86 98 10/08/21 00:21 85 98 10/08/21 00:16 91 H 98 10/08/21 00:11 83 96 10/08/21 00:06 81 96 10/08/21 00:04 81 126/67 10/08/21 00:01 36.6 C 84 18 96 10/08/21 00:00 18 10/07/21 23:56 83 95 10/07/21 23:51 86 96 10/07/21 23:46 83 96 10/07/21 23:41 83 97 10/07/21 23:36 82 128/65 97 10/07/21 23:34 83 126/72 10/07/21 23:31 83 98 10/07/21 23:26 83 97 10/07/21 23:21 83 97 10/07/21 23:16 92 H 98 10/07/21 23:11 87 96 10/07/21 23:06 86 95 10/07/21 23:04 86 108/58 L 10/07/21 23:01 88 96 10/07/21 23:00 18 10/07/21 22:56 87 96 10/07/21 22:51 90 96 10/07/21 22:46 93 H 95 10/07/21 22:41 94 H 96 10/07/21 22:36 93 H 96 10/07/21 22:34 90 128/60 94 10/07/21 22:31 92 H 95 10/07/21 22:26 96 H 96 10/07/21 22:21 91 H 95 10/07/21 22:19 90 94 10/07/21 22:16 93 H 96 10/07/21 22:11 95 H 95 10/07/21 22:06 95 H 95 10/07/21 22:04 96 H 117/57 L 10/07/21 22:01 95 H 96 10/07/21 22:00 18 10/07/21 21:56 98 H 96 10/07/21 21:51 96 H 96 10/07/21 21:46 96 H 95 10/07/21 21:41 101 H 96 10/07/21 21:36 98 H 95 22 21:34 99 H 120/58 L 10/07/21 21:31 99 H 96 10/07/21 21:26 101 H 96 10/07/21 21:21 102 H 96 22 21:16 98 H 96 10/07/21 21:11 97 H 97 10/07/21 21:06 100 H 98 10/07/21 21:04 99 H 134/60 10/07/21 21:01 36.8 C 102 H 18 100 10/07/21 21:00 18 10/07/21 20:56 104 H 99 10/07/21 20:51 103 H 98 10/07/21 20:46 98 H 99 10/07/21 20:41 100 H 99 10/07/21 20:36 105 H 99 10/07/21 20:34 96 H 145/73 H 10/07/21 20:31 103 H 99 10/07/21 20:29 98 H 139/77 10/07/21 20:26 101 H 98 10/07/21 20:21 98 H 98 10/07/21 20:16 101 H 100 10/07/21 20:11 100 H 97 10/07/21 20:06 98 H 96 10/07/21 20:04 102 H 136/65 10/07/21 20:01 102 H 96 10/07/21 20:00 18 10/07/21 19:56 102 H 96 10/07/21 19:51 101 H 96 10/07/21 19:46 100 H 96 10/07/21 19:41 102 H 96 10/07/21 19:36 96 H 95 10/07/21 19:34 100 H 136/71 10/07/21 19:31 100 H 97 10/07/21 19:26 97 H 97 10/07/21 19:21 94 H 96 10/07/21 19:20 36.6 C 18 10/07/21 19:16 101 H 99 10/07/21 19:11 102 H 99 10/07/21 19:06 100 H 95 10/07/21 19:04 96 H 146/72 H 10/07/21 19:01 95 H 96 10/07/21 18:56 93 H 96 10/07/21 18:55 18 10/07/21 18:51 106 H 96 10/07/21 18:46 96 H 97 10/07/21 18:41 96 H 98 10/07/21 18:37 36.5 C 18 10/07/21 18:36 98 H 96 10/07/21 18:34 90 167/78 H 10/07/21 18:31 102 H 96 10/07/21 18:26 99 H 98 10/07/21 18:25 18 10/07/21 18:21 98 H 100 10/07/21 18:16 97 H 99 10/07/21 18:11 102 H 97 10/07/21 18:09 18 10/07/21 18:06 98 H 99 10/07/21 18:04 99 H 134/70 10/07/21 18:01 100 H 99 10/07/21 17:56 94 H 97 10/07/21 17:55 18 10/07/21 17:51 99 H 99 10/07/21 17:46 101 H 98 10/07/21 17:41 99 H 99 10/07/21 17:36 98 H 99 10/07/21 17:34 100 H 131/62 10/07/21 17:31 99 H 99 10/07/21 17:26 97 H 98 10/07/21 17:25 18 10/07/21 17:21 95 H 98 10/07/21 17:16 98 H 99 10/07/21 17:11 98 H 98 10/07/21 17:06 102 H 99 10/07/21 17:01 101 H 133/60 98 10/07/21 16:56 100 H 98 10/07/21 16:55 18 10/07/21 16:53 103 H 147/71 H 10/07/21 16:51 103 H 99 10/07/21 16:48 36.5 C 18 10/07/21 16:46 99 H 100 10/07/21 16:43 105 H 94 10/07/21 16:41 94 H 139/66 96 10/07/21 16:36 100 H 98 10/07/21 16:31 95 H 119/61 96 10/07/21 16:26 94 H 96 10/07/21 16:25 18 10/07/21 16:22 93 H 117/61 10/07/21 16:21 96 H 98 10/07/21 16:16 97 H 96 10/07/21 16:11 96 H 128/63 97 10/07/21 16:06 94 H 96 10/07/21 16:01 95 H 96 10/07/21 16:00 94 H 118/59 L 10/07/21 15:56 96 H 94 10/07/21 15:51 93 H 95 10/07/21 15:50 90 116/58 L 10/07/21 15:46 91 H 96 10/07/21 15:41 89 117/58 L 97 10/07/21 15:36 93 H 99 10/07/21 15:35 16 10/07/21 15:31 90 114/56 L 99 10/07/21 15:26 96 H 99 10/07/21 15:21 89 107/53 L 98 10/07/21 15:15 88 97 10/07/21 15:10 90 99 10/07/21 15:08 87 121/58 L 10/07/21 15:05 102 H 100 10/07/21 15:02 100 H 89/54 L 10/07/21 15:00 96 H 100 10/07/21 14:57 93 H 101/57 L 10/07/21 14:55 105 H 100 10/07/21 14:51 95 H 95/52 L 10/07/21 14:50 95 H 96 10/07/21 14:49 97 H 91/52 L 10/07/21 14:47 107 H 91/49 L 10/07/21 14:46 100 H 99/53 L 10/07/21 14:45 99 H 100 10/07/21 14:44 111 H 110/50 L 10/07/21 14:43 108 H 90 10/07/21 14:41 95 H 93/52 L 10/07/21 14:40 101 H 97 10/07/21 14:39 97 H 86/50 L 10/07/21 14:37 106 H 89/50 L 10/07/21 14:35 116 H 100 10/07/21 14:34 105 H 88/38 L 10/07/21 14:30 109 H 18 98 10/07/21 14:29 98 H 85 L 10/07/21 14:27 86 72/35 L 10/07/21 14:25 97 H 84/40 L 99 10/07/21 14:21 94 H 120/68 10/07/21 14:19 99 H 97 10/07/21 14:18 98 H 87/49 L 10/07/21 14:16 96 H 94/48 L 10/07/21 14:14 97 H 96 10/07/21 14:13 95 H 99/50 L 10/07/21 14:12 98 H 101/49 L 10/07/21 14:10 107 H 116/52 L 10/07/21 14:09 103 H 97 10/07/21 14:08 107 H 121/49 L 10/07/21 14:05 101 H 126/66 10/07/21 14:04 99 H 99 10/07/21 14:03 98 H 131/63 10/07/21 14:01 98 H 137/71 10/07/21 13:59 99 H 98 10/07/21 13:54 107 H 100 10/07/21 13:49 105 H 99 10/07/21 13:44 109 H 99 10/07/21 13:43 104 H 79 L 10/07/21 13:38 96 H 99 10/07/21 13:33 93 H 100 10/07/21 13:31 36.6 C 18 10/07/21 13:28 96 H 98 10/07/21 13:23 96 H 97 10/07/21 13:18 94 H 98 10/07/21 13:13 95 H 99 10/07/21 13:08 97 H 99 10/07/21 13:03 98 H 99 10/07/21 12:58 95 H 99 10/07/21 12:53 96 H 96 10/07/21 12:51 95 H 140/75 10/07/21 12:48 100 H 96 10/07/21 12:43 97 H 97 10/07/21 12:38 100 H 97 10/07/21 12:35 36.5 C 18 10/07/21 12:33 100 H 97 10/07/21 12:30 18 10/07/21 12:28 101 H 99 10/07/21 12:23 98 H 98 10/07/21 12:18 102 H 98 10/07/21 12:13 93 H 96 10/07/21 12:08 96 H 97 10/07/21 12:03 95 H 97 10/07/21 11:58 95 H 98 10/07/21 11:53 93 H 98 10/07/21 11:51 91 H 145/73 H 10/07/21 11:48 98 H 97 10/07/21 11:43 99 H 96 10/07/21 11:38 95 H 96 10/07/21 11:33 99 H 133/60 96 10/07/21 11:28 96 H 96 10/07/21 11:23 97 H 134/63 96 10/07/21 11:21 36.6 C 18 10/07/21 11:18 101 H 98 10/07/21 11:13 103 H 145/68 H 96 10/07/21 11:12 102 H 93 10/07/21 11:07 102 H 97 10/07/21 11:03 96 H 161/77 H 10/07/21 11:02 100 H 96 10/07/21 10:57 122 H 98 10/07/21 10:52 115 H 100 10/07/21 10:50 106 H 144/89 H 10/07/21 10:47 116 H 99 10/07/21 10:42 107 H 99 10/07/21 10:37 107 H 100 10/07/21 10:33 93 H 170/79 H 10/07/21 10:31 100 H 188/89 H 10/07/21 10:30 36.4 C L 100 H 18 97 10/07/21 10:25 100 H 99 10/07/21 10:20 104 H 97 10/07/21 10:15 99 H 96 10/07/21 10:10 103 H 96 10/07/21 10:05 101 H 98 10/07/21 10:03 106 H 93 10/07/21 10:00 102 H 96 10/07/21 09:55 105 H 98 10/07/21 09:50 105 H 99 10/07/21 09:45 106 H 98 10/07/21 09:40 110 H 98 10/07/21 09:35 106 H 97 10/07/21 09:32 109 H 143/78 H 10/07/21 09:30 111 H 18 98 10/07/21 09:25 115 H 97 10/07/21 09:20 107 H 98 10/07/21 09:15 115 H 99 10/07/21 09:10 112 H 99 10/07/21 09:06 106 H 175/97 H 10/07/21 09:05 118 H 97 10/07/21 09:00 118 H 98 10/07/21 08:55 118 H 99 10/07/21 08:50 119 H 98 10/07/21 08:44 106 H 99 10/07/21 08:39 101 H 99 10/07/21 08:37 108 H 148/87 H 93 10/07/21 08:34 102 H 98 10/07/21 08:29 107 H 97 10/07/21 08:24 102 H 98 10/07/21 08:19 102 H 97 10/07/21 08:14 100 H 97 10/07/21 08:12 36.4 C L 18 10/07/21 08:09 110 H 99 10/07/21 08:04 103 H 97 10/07/21 07:59 99 H 97 10/07/21 07:54 100 H 96 10/07/21 07:49 104 H 98 10/07/21 07:44 102 H 98 10/07/21 07:39 102 H 98 10/07/21 07:34 106 H 98 10/07/21 07:33 101 H 143/75 H 10/07/21 07:30 18 10/07/21 07:29 102 H 98 10/07/21 07:24 116 H 98 10/07/21 07:19 101 H 97 10/07/21 07:16 98 H 142/92 H 92 10/07/21 07:14 112 H 99 10/07/21 06:51 105 H 98 10/07/21 06:46 104 H 97 10/07/21 06:41 108 H 98 10/07/21 06:36 103 H 97 10/07/21 06:32 101 H 155/92 H 10/07/21 06:31 107 H 98 10/07/21 06:30 18 10/07/21 06:26 107 H 99 10/07/21 06:21 107 H 99 10/07/21 06:16 109 H 99 10/07/21 06:11 106 H 99 10/07/21 06:06 108 H 99 10/07/21 05:56 111 H 97 10/07/21 05:51 95 H 97 10/07/21 05:46 96 H 97 10/07/21 05:41 98 H 97 10/07/21 05:36 97 H 97 10/07/21 05:33 92 H 132/67 10/07/21 05:31 97 H 97 10/07/21 05:30 18 04/20/22 05:26 96 H 97 10/07/21 05:21 96 H 97 10/07/21 05:16 92 H 98 10/07/21 05:11 93 H 97 10/07/21 05:06 95 H 97 10/07/21 05:01 92 H 98 10/07/21 04:56 91 H 98 10/07/21 04:51 92 H 98 Pain Intensity Abdomen: Pain Intensity: 0 Transfer of Care Handoff Completed per policy Notes Mental Status: alert / awake / arousable and participated in evaluation Nausea / Vomiting: adequately controlled Pain: adequately controlled Airway Patency, RR, SpO2: stable & adequate BP & HR: stable & adequate Hydration State: stable & adequate Neuraxial Anesthesia: was administered and sensory block is resolving Anesthetic Complications: no major complications apparent and Pt Satisfied with anesthetic care
--- NOTE | 2021-10-08 07:05 | Operative Report (OR) ---
PREOPERATIVE DIAGNOSES: The patient is a 36-year-old G2, P1-0-0-1 at 36 weeks and 6 days of gestation, admitted to labor and delivery for induction of labor for preeclampsia with severe features, on IV magnesium seizure prophylaxis, elevated liver enzymes and worsening since admission, arrest of dilatation in active phase of labor despite adequate uterine contractions documented by the [facility]. POSTOPERATIVE DIAGNOSES: The patient is a 36-year-old G2, P1-0-0-1 at 36 weeks and 6 days of gestation, admitted to labor and delivery for induction of labor for preeclampsia with severe features, on IV magnesium seizure prophylaxis, elevated liver enzymes and worsening since admission, arrest of dilatation in active phase of labor despite adequate uterine contractions documented by the [facility]. PROCEDURE: Primary low transverse with Pfannenstiel skin incision. SURGEON: Kacie Quarles MD GOSPEL SINGER: Zoe Nicholson MD ESTIMATED BLOOD LOSS: 600 mL. DRAINS: Garrison catheter drained 100 mL of clear urine. ANESTHESIA: Labor epidural. ANESTHESIOLOGIST: Dr. Brown. COMPLICATIONS: None. FINDINGS: Baby was a viable female infant delivered at 2:22 a.m. Apgars were 8/8. Weight was 2805 grams. Baby was delivered in cephalic presentation. Maternal findings: Normal uterus, fallopian tubes, and ovaries, and morbid obesity. DESCRIPTION OF PROCEDURE: The patient was taken to the operating room where epidural anesthesia was found to be adequate. She was placed in dorsal supine position with a leftward tilt. She was prepared and draped in the usual sterile fashion. A Pfannenstiel skin incision was made and carried through to the underlying layer of fascia with the Bovie. Fascia was incised in the midline and incision was extended laterally with the help of Das scissors. Upper aspect of the fascial incision was grasped with 2 Reese clamps, elevated, and underlying rectus muscles were dissected off sharply with Das scissors and bluntly with fingers. Same thing was done on the lower aspect of the fascial incision. The rectus muscles were in the midline. Peritoneum was identified and entered bluntly with fingers. Peritoneal incision was extended superiorly and inferiorly with good visualization of the bladder. There was omentum and loops of bowels. They were pushed back to the upper abdomen and an Philip abdominal retractor was placed to retract the abdominal wall. Then the vesicouterine peritoneum was identified, grasped with pickups, entered sharply with Metzenbaum scissors. Bladder flap was created digitally and bladder blade was inserted. Lower uterine segment was incised in transverse fashion, the incision was extended laterally with the help of bandage scissors. Membranes were ruptured. Clear fluid was obtained. Baby's head was brought to the incision and delivered without difficulty. Shoulders were delivered with minimal traction. Mouth and nose were suctioned. Baby was moving and crying at that point and cord was clamped x2 and cut at 1-minute delay. Baby was handed off to the waiting pediatric team. Then placenta was delivered manually as intact and complete. Uterus was exteriorized and cleared of all clots and debris. This uterine incision was repaired with 0 Vicryl in a running locked fashion. Second imbricating layer was placed with another 0 Vicryl in a running locked fashion. Excellent hemostasis was achieved. Normal cul-de-sac with smooth serosa, normal ovaries and fallopian tubes were seen. Uterus was returned to the abdomen. Pelvis was irrigated with warm normal saline and suctioned and the incision was checked to be again hemostatic. Parietal peritoneum was reapproximated with 2-0 Vicryl in a running fashion. The rectus muscles were brought together with the same suture in a running fashion. Excellent hemostasis was achieved. The rectus fascia was reapproximated with #1 Vicryl, starting from both corners meeting in the midline in a continuous fashion. Then the subcuticular fat tissue was brought together with 3-0 Vicryl in a running fashion. The skin was closed with 4-0 Monocryl in a subcuticular fashion and the incision was covered with Steri-Strips and VINCENT dressing. The procedure was ended. The patient tolerated the procedure well. Sponge, lap, needle count was correct x3. No complications happened. I was and my visitor use assistant Dr. Nicholson was present during whole procedure. My visitor use assistant was needed for retraction, visualization, hemostasis control, and aid during delivery of the infant. The patient was given 3 grams of cefazolin and 500 mg of azithromycin before surgery. She was taken to recovery room in stable condition. Job ID: [id number] [id number]
[2021-10-08] MEDS: DOCUSATE SODIUM 100 MG CAP PO SCH ×2 (07:36→20:27)
[2021-10-08] MEDS: PRENATAL VITAMIN 1 TAB PO SCH (08:43)
[2021-10-08] MEDS: SIMETHICONE 80 MG CHEW PO SCH ×4 (08:44→21:26)
[2021-10-08] MEDS: LORATADINE 10 MG TAB PO SCH (08:44)
[2021-10-08] MEDS: FERROUS SULFATE 325 MG TAB PO SCH (08:44)
[2021-10-08] MEDS: ACETAMINOPHEN 1000 MG/100 ML IV IV PRN ×2 (09:05→16:57)
--- NOTE | 2021-10-08 09:23 | Obstetrical Progress Note ---
Date of Service October 08, 2021 Assessment & Plan (1) Pre-eclampsia during in third trimester, antepartum: Continue Magnesium for 24 hours post surgery Subjective Ambulation: limited ambulation Voiding: angulo catheter in place Passing Gas:: No Diet Tolerance:: clear liquids Lochia:: Small Feeding Type:: breast feeding doing well denies headaches or visual changes Physical Exam Constitutional WD/WN, vitals as above Skin no rashes, warm and dry no edema, neg Maddy's Neurologic patellar DTR's 2+ bilat, sensation intact Results & Data ([facility]) Vital Signs (Past 12 Hours) Vital Signs Temp Pulse Resp BP Pulse Ox 10/08/21 09:18 82 95 10/08/21 09:16 81 94 10/08/21 09:13 87 97 10/08/21 09:08 84 96 10/08/21 09:06 83 94 10/08/21 09:03 84 94 10/08/21 09:00 84 94 10/08/21 08:58 83 95 10/08/21 08:55 82 94 10/08/21 08:53 81 95 10/08/21 08:48 87 96 10/08/21 08:45 18 95 10/08/21 08:43 80 95 10/08/21 08:41 86 94 10/08/21 08:38 92 H 95 10/08/21 08:36 85 92 10/08/21 08:33 88 95 10/08/21 08:31 83 94 10/08/21 08:30 82 119/56 L 10/08/21 08:28 84 92 10/08/21 08:23 81 92 10/08/21 08:21 81 115/58 L 10/08/21 08:18 85 94 10/08/21 08:17 84 94 10/08/21 08:13 86 96 10/08/21 08:12 86 94 10/08/21 08:08 82 96 10/08/21 08:03 86 94 10/08/21 07:58 83 94 10/08/21 07:57 82 92 10/08/21 07:53 85 94 10/08/21 07:51 83 94 10/08/21 07:48 79 94 10/08/21 07:45 83 94 10/08/21 07:43 86 95 10/08/21 07:40 88 94 04/21/22 07:38 86 96 10/08/21 07:33 83 113/52 L 95 10/08/21 07:32 79 94 10/08/21 07:30 18 95 10/08/21 07:28 87 95 10/08/21 07:25 83 94 10/08/21 07:23 87 97 10/08/21 07:18 88 97 10/08/21 07:13 82 96 10/08/21 07:08 84 96 10/08/21 07:03 88 97 10/08/21 07:01 85 149/67 H 10/08/21 06:58 86 94 10/08/21 06:57 95 H 93 10/08/21 06:53 87 93 10/08/21 06:48 85 91 10/08/21 06:43 90 96 10/08/21 06:42 93 H 94 10/08/21 06:38 86 92 10/08/21 06:37 36.8 C 18 10/08/21 06:36 96 H 93 10/08/21 06:33 84 92 10/08/21 06:30 88 139/72 10/08/21 06:28 100 H 94 10/08/21 06:23 85 92 10/08/21 06:18 87 93 10/08/21 06:13 89 93 10/08/21 06:08 87 93 10/08/21 06:03 90 92 10/08/21 06:01 95 H 94 10/08/21 05:58 87 92 10/08/21 05:56 96 H 154/77 H 10/08/21 05:55 86 94 10/08/21 05:53 90 93 10/08/21 05:48 90 94 10/08/21 05:46 88 157/74 H 10/08/21 05:45 89 93 10/08/21 05:43 90 93 10/08/21 05:38 90 93 10/08/21 05:36 84 152/70 H 93 10/08/21 05:35 18 10/08/21 05:33 91 H 94 10/08/21 05:28 86 93 10/08/21 05:26 88 161/78 H 10/08/21 05:25 18 10/08/21 05:24 89 93 10/08/21 05:23 95 H 94 10/08/21 05:18 89 93 10/08/21 05:16 83 135/65 10/08/21 05:15 16 10/08/21 05:13 87 93 10/08/21 05:09 82 94 10/08/21 05:08 88 95 10/08/21 05:07 84 137/65 10/08/21 05:05 18 10/08/21 05:03 85 93 10/08/21 05:00 83 93 10/08/21 04:58 85 93 10/08/21 04:56 99 H 116/62 10/08/21 04:55 18 10/08/21 04:54 88 94 10/08/21 04:53 89 94 10/08/21 04:48 83 94 10/08/21 04:47 84 93 10/08/21 04:46 89 126/66 10/08/21 04:43 87 92 10/08/21 04:38 86 93 10/08/21 04:37 84 94 10/08/21 04:36 82 127/62 10/08/21 04:35 18 10/08/21 04:33 88 93 10/08/21 04:28 85 94 10/08/21 04:26 85 129/63 10/08/21 04:25 18 10/08/21 04:23 85 94 10/08/21 04:21 82 94 10/08/21 04:18 84 95 10/08/21 04:16 74 112/57 L 10/08/21 04:15 18 10/08/21 04:14 81 93 10/08/21 04:13 82 96 10/08/21 04:08 88 94 10/08/21 04:06 76 115/58 L 10/08/21 04:05 18 10/08/21 04:03 82 95 10/08/21 04:02 80 94 10/08/21 03:58 85 97 10/08/21 03:56 80 113/58 L 94 10/08/21 03:55 18 10/08/21 03:53 80 96 10/08/21 03:48 80 97 10/08/21 03:46 80 109/59 L 10/08/21 03:45 18 10/08/21 03:43 83 95 10/08/21 03:38 81 97 10/08/21 03:35 36.4 C L 81 18 112/56 L 10/08/21 03:33 82 96 10/08/21 01:38 86 106/59 L 10/08/21 01:26 90 96 10/08/21 01:23 90 128/67 10/08/21 01:21 89 96 10/08/21 01:20 90 131/70 10/08/21 01:16 89 96 10/08/21 01:14 92 H 134/70 10/08/21 01:00 18 10/08/21 00:46 88 98 10/08/21 00:41 86 99 10/08/21 00:36 87 98 10/08/21 00:34 84 176/84 H 10/08/21 00:31 90 18 98 10/08/21 00:30 36.8 C 18 10/08/21 00:26 86 98 10/08/21 00:21 85 98 10/08/21 00:16 91 H 98 10/08/21 00:11 83 96 10/08/21 00:06 81 96 10/08/21 00:04 81 126/67 10/08/21 00:01 36.6 C 84 18 96 10/08/21 00:00 18 10/07/21 23:56 83 95 10/07/21 23:51 86 96 10/07/21 23:46 83 96 10/07/21 23:41 83 97 10/07/21 23:36 82 128/65 97 10/07/21 23:34 83 126/72 10/07/21 23:31 83 98 10/07/21 23:26 83 97 10/07/21 23:21 83 97 10/07/21 23:16 92 H 98 10/07/21 23:11 87 96 10/07/21 23:06 86 95 10/07/21 23:04 86 108/58 L 10/07/21 23:01 88 96 10/07/21 23:00 18 10/07/21 22:56 87 96 10/07/21 22:51 90 96 10/07/21 22:46 93 H 95 10/07/21 22:41 94 H 96 10/07/21 22:36 93 H 96 10/07/21 22:34 90 128/60 94 10/07/21 22:31 92 H 95 10/07/21 22:26 96 H 96 10/07/21 22:21 91 H 95 10/07/21 22:19 90 94 10/07/21 22:16 93 H 96 10/07/21 22:11 95 H 95 10/07/21 22:06 95 H 95 10/07/21 22:04 96 H 117/57 L 10/07/21 22:01 95 H 96 10/07/21 22:00 18 10/07/21 21:56 98 H 96 10/07/21 21:51 96 H 96 10/07/21 21:46 96 H 95 10/07/21 21:41 101 H 96 10/07/21 21:36 98 H 95 10/07/21 21:34 99 H 120/58 L 10/07/21 21:31 99 H 96 10/07/21 21:26 101 H 96 Laboratory Results 10/06/21 10/06/21 10/06/21 16:48 16:52 16:52 WBC 11.21 H RBC 4.25 Hgb 12.5 Hct 37.1 MCV 87.3 MCH 29.4 MCHC 33.7 RDW Std Deviation 46.9 H RDW Coeff of Steve 14.9 H Plt Count 228 MPV 10.2 Immature Gran % (Auto) 0.3 Neut % (Auto) 85.9 Lymph % (Auto) 9.8 [place] % (Auto) 3.9 Eos % (Auto) 0.1 Baso % (Auto) 0.0 Neut # (Auto) 9.63 H Lymph # (Auto) 1.10 L [place] # (Auto) 0.44 Eos # (Auto) 0.01 Baso # (Auto) 0.00 Immature Gran # (Auto) 0.03 H PT INR APTT PTT Ratio Fibrinogen Sodium 133 L Potassium 3.7 Chloride 105 Carbon Dioxide 20 L Anion Gap 8 BUN 8 Creatinine 0.53 L Est Cr Clr Drug Dosing 209.2 Est GFR ( Amer) 141.6 Est GFR (Non-Af Amer) 122.2 BUN/Creatinine Ratio 15.1 Glucose 118 H Uric Acid Calcium 8.9 Magnesium Magnesium (Sulf Ther) Total Bilirubin 0.4 AST 81 H ALT 170 H Alkaline Phosphatase 104 Lactate Dehydrogenase Total Protein 6.2 Albumin 3.4 Globulin 2.8 Albumin/Globulin Ratio 1.2 Ur Random Creatinine 106.0 U Random Total Protein 54.3 H Protein/Creatinin Ratio 0.5 H SARS-CoV-2, RNA, NAAT Blood Type Blood Type Recheck Antibody Screen Crossmatch 10/06/21 10/06/21 10/06/21 18:43 19:26 19:26 WBC RBC Hgb Hct MCV MCH MCHC RDW Std Deviation RDW Coeff of Steve Plt Count MPV Immature Gran % (Auto) Neut % (Auto) Lymph % (Auto) [place] % (Auto) Eos % (Auto) Baso % (Auto) Neut # (Auto) Lymph # (Auto) [place] # (Auto) Eos # (Auto) Baso # (Auto) Immature Gran # (Auto) PT INR APTT PTT Ratio Fibrinogen Sodium Potassium Chloride Carbon Dioxide Anion Gap BUN Creatinine Est Cr Clr Drug Dosing Est GFR ( Amer) Est GFR (Non-Af Amer) BUN/Creatinine Ratio Glucose Uric Acid 4.8 Calcium Magnesium Magnesium (Sulf Ther) Total Bilirubin AST ALT Alkaline Phosphatase Lactate Dehydrogenase 160 Total Protein Albumin Globulin Albumin/Globulin Ratio Ur Random Creatinine U Random Total Protein Protein/Creatinin Ratio SARS-CoV-2, RNA, NAAT NEGATIVE Blood Type Blood Type Recheck Antibody Screen Crossmatch 10/06/21 10/06/21 10/07/21 19:26 19:26 05:55 WBC 12.83 H RBC 4.20 Hgb 12.5 Hct 37.0 MCV 88.1 MCH 29.8 MCHC 33.8 RDW Std Deviation 47.9 H RDW Coeff of Steve 14.9 H Plt Count 242 MPV 10.6 H Immature Gran % (Auto) Neut % (Auto) Lymph % (Auto) [place] % (Auto) Eos % (Auto) Baso % (Auto) Neut # (Auto) Lymph # (Auto) [place] # (Auto) Eos # (Auto) Baso # (Auto) Immature Gran # (Auto) PT INR APTT PTT Ratio Fibrinogen Sodium Potassium Chloride Carbon Dioxide Anion Gap BUN Creatinine Est Cr Clr Drug Dosing Est GFR ( Amer) Est GFR (Non-Af Amer) BUN/Creatinine Ratio Glucose Uric Acid Calcium Magnesium Magnesium (Sulf Ther) 4.6 Total Bilirubin AST ALT Alkaline Phosphatase Lactate Dehydrogenase Total Protein Albumin Globulin Albumin/Globulin Ratio Ur Random Creatinine U Random Total Protein Protein/Creatinin Ratio SARS-CoV-2, RNA, NAAT Blood Type O Negative Blood Type Recheck Antibody Screen NEGATIVE Crossmatch See Detail 10/07/21 10/07/21 10/07/21 09:04 09:04 09:04 WBC 11.77 H RBC 4.43 Hgb 13.0 Hct 38.5 MCV 86.9 MCH 29.3 MCHC 33.8 RDW Std Deviation 47.2 H RDW Coeff of Steve 14.9 H Plt Count 265 MPV 10.4 Immature Gran % (Auto) 0.4 Neut % (Auto) 86.1 Lymph % (Auto) 10.5 [place] % (Auto) 2.9 Eos % (Auto) 0.0 Baso % (Auto) 0.1 Neut # (Auto) 10.13 H Lymph # (Auto) 1.24 [place] # (Auto) 0.34 Eos # (Auto) 0.00 Baso # (Auto) 0.01 Immature Gran # (Auto) 0.05 H PT 9.6 INR 0.9 APTT 24.3 PTT Ratio 0.9 Fibrinogen 707 H Sodium 132 L Potassium 4.0 Chloride 103 Carbon Dioxide 20 L Anion Gap 9 BUN 6 Creatinine 0.50 L Est Cr Clr Drug Dosing 221.7 Est GFR ( Amer) 144.3 Est GFR (Non-Af Amer) 124.5 BUN/Creatinine Ratio 12.0 Glucose 108 H Uric Acid Calcium 7.7 L Magnesium Magnesium (Sulf Ther) Total Bilirubin 0.6 AST 212 H ALT 326 H Alkaline Phosphatase 112 H Lactate Dehydrogenase Total Protein 6.7 Albumin 3.6 Globulin 3.1 Albumin/Globulin Ratio 1.2 Ur Random Creatinine U Random Total Protein Protein/Creatinin Ratio SARS-CoV-2, RNA, NAAT Blood Type Blood Type Recheck Antibody Screen Crossmatch 10/07/21 10/07/21 10/07/21 09:04 09:04 12:01 WBC RBC Hgb Hct MCV MCH MCHC RDW Std Deviation RDW Coeff of Steve Plt Count MPV Immature Gran % (Auto) Neut % (Auto) Lymph % (Auto) [place] % (Auto) Eos % (Auto) Baso % (Auto) Neut # (Auto) Lymph # (Auto) [place] # (Auto) Eos # (Auto) Baso # (Auto) Immature Gran # (Auto) PT INR APTT PTT Ratio Fibrinogen Sodium Potassium Chloride Carbon Dioxide Anion Gap BUN Creatinine Est Cr Clr Drug Dosing Est GFR ( Amer) Est GFR (Non-Af Amer) BUN/Creatinine Ratio Glucose Uric Acid Calcium Magnesium Magnesium (Sulf Ther) 4.4 Total Bilirubin AST ALT Alkaline Phosphatase Lactate Dehydrogenase 253 H Total Protein Albumin Globulin Albumin/Globulin Ratio Ur Random Creatinine U Random Total Protein Protein/Creatinin Ratio SARS-CoV-2, RNA, NAAT Blood Type Blood Type Recheck O Negative Antibody Screen Crossmatch 10/07/21 10/07/21 10/07/21 14:55 14:55 14:55 WBC 11.17 H RBC 4.20 Hgb 12.3 Hct 37.1 MCV 88.3 MCH 29.3 MCHC 33.2 RDW Std Deviation 48.3 H RDW Coeff of Steve 15.0 H Plt Count 239 MPV 10.6 H Immature Gran % (Auto) 0.3 Neut % (Auto) 83.8 Lymph % (Auto) 10.8 [place] % (Auto) 5.1 Eos % (Auto) 0.0 Baso % (Auto) 0.0 Neut # (Auto) 9.36 H Lymph # (Auto) 1.21 [place] # (Auto) 0.57 Eos # (Auto) 0.00 Baso # (Auto) 0.00 Immature Gran # (Auto) 0.03 H PT INR APTT PTT Ratio Fibrinogen Sodium 134 L Potassium 3.9 Chloride 103 Carbon Dioxide 21 Anion Gap 10 BUN 7 Creatinine 0.60 Est Cr Clr Drug Dosing 184.8 Est GFR ( Amer) 135.9 Est GFR (Non-Af Amer) 117.3 BUN/Creatinine Ratio 11.7 Glucose 119 H Uric Acid Calcium 7.8 L Magnesium Magnesium (Sulf Ther) 4.6 Total Bilirubin 0.4 AST 271 H ALT 392 H Alkaline Phosphatase 103 Lactate Dehydrogenase 268 H Total Protein 6.3 Albumin 3.4 Globulin 2.9 Albumin/Globulin Ratio 1.2 Ur Random Creatinine U Random Total Protein Protein/Creatinin Ratio SARS-CoV-2, RNA, NAAT Blood Type Blood Type Recheck Antibody Screen Crossmatch 10/07/21 10/07/21 10/07/21 21:45 21:45 21:45 WBC 10.21 RBC 3.77 L Hgb 11.3 L Hct 33.3 L MCV 88.3 MCH 30.0 MCHC 33.9 RDW Std Deviation 48.9 H RDW Coeff of Steve 15.3 H Plt Count 217 MPV 10.1 Immature Gran % (Auto) Neut % (Auto) Lymph % (Auto) [place] % (Auto) Eos % (Auto) Baso % (Auto) Neut # (Auto) Lymph # (Auto) [place] # (Auto) Eos # (Auto) Baso # (Auto) Immature Gran # (Auto) PT 9.5 INR 0.9 APTT 25.1 PTT Ratio 0.9 Fibrinogen 638 H Sodium 130 L Potassium 3.8 Chloride 101 Carbon Dioxide 21 Anion Gap 8 BUN 7 Creatinine 0.55 L Est Cr Clr Drug Dosing 201.6 Est GFR ( Amer) 139.9 Est GFR (Non-Af Amer) 120.7 BUN/Creatinine Ratio 12.7 Glucose 124 H Uric Acid Calcium 7.3 L Magnesium 4.3 H Magnesium (Sulf Ther) Total Bilirubin 0.5 AST 302 H ALT 433 H Alkaline Phosphatase 93 Lactate Dehydrogenase Total Protein 5.7 L Albumin 3.1 L Globulin 2.6 Albumin/Globulin Ratio 1.2 Ur Random Creatinine U Random Total Protein Protein/Creatinin Ratio SARS-CoV-2, RNA, NAAT Blood Type Blood Type Recheck Antibody Screen Crossmatch
[2021-10-08] MEDS: LABETALOL HCL 100 MG TAB PO SCH ×2 (09:24→20:45)
[2021-10-08 09:52] LABS: Hemoglobin 10.1 g/dL (12.0-16.0); Immature Granulocytes # (auto) 0.03 K/uL (0.00-0.02); Immature Granulocytes % (auto) 0.2 %; Lymphocytes # (auto) 0.95 K/uL (1.2-3.4); Lymphocytes % (auto) 7.6 %; Mean Platelet Volume 10.4 fL (7.4-10.4); Monocytes # (auto) 0.81 K/uL (0.11-0.59); Monocytes % (auto) 6.5 %; Neutrophils % (auto) 85.7 %; Platelet Count 223 K/uL (130-400); RDW Coefficient of Variation 15.3 % (11.5-14.5); RDW Standard Deviation 49.4 fL (36.4-46.3); Red Blood Count 3.37 M/uL (4.2-5.4); White Blood Count 12.49 K/uL (4.8-10.8)
[2021-10-08] MEDS ORDERED: ceFAZolin 2000MG 2,000 MG/15 ML SYR IV ONE (10:00)
[2021-10-08 10:21] LABS: Mean Corpuscular Hgb Conc 33.7 g/dL (32-36)
[2021-10-08 10:30] LABS: Albumin Globulin Ratio 1.1 (0.9-2); Albumin Level 2.9 gm/dl (3.4-5.0); BUN Creatinine Ratio 11.7 (10-20); Bilirubin Direct 0.1 mg/dl (0-0.2); Bilirubin,Total 0.3 mg/dl (0.2-1.0); Calcium 7.1 mg/dl (8.5-10.1); Creatinine Clr Calc Pharmacy 184.8 ml/min; Est GFR (African American) 135.9 ml/min; Est GFR (Non-African American) 117.3 ml/min; Globulin 2.7 gm/dl (2.5-4.0); Potassium 4.7 mmol/L (3.5-5.1); Total Protein 5.6 gm/dl (6.0-8.3)
--- NOTE | 2021-10-08 11:16 | Anesthesia Procedure Note ---
Date of Service October 08, 2021 Anesthesia Post Epidural Note Vital Signs Vital Signs: Temp Pulse Resp BP Pulse Ox 36.8 C 79 18 103/51 L 100 10/08/21 06:37 10/08/21 11:10 10/08/21 11:00 10/08/21 10:42 10/08/21 11:10 Pain Intensity Abdomen: Pain Intensity: 0 Notes Mental Status: alert / awake / arousable and participated in evaluation Nausea / Vomiting: adequately controlled Pain: adequately controlled Airway Patency, RR, SpO2: stable & adequate BP & HR: stable & adequate Hydration State: stable & adequate Neuraxial Anesthesia: was administered and sensory block is resolving Anesthetic Complications: no major complications apparent and Pt Satisfied with anesthetic care Epidural: Removed without complications and With tip intact Notes: The patient's platelets are in the 200s.
[2021-10-08] MEDS: AMOXICILLIN/CLAVULANATE 875 MG TAB PO SCH ×2 (14:01→21:26)
[2021-10-08] MEDS: MAGNESIUM SULFATE / WTR 40 GM/1,000 ML BAG IV SCH (15:49)
[2021-10-08] MEDS ORDERED: FLUCONAZOLE 50 MG TAB PO STA (20:53)
[2021-10-08] MEDS: ESCITALOPRAM OXALATE 10 MG TAB PO SCH (21:26)
[2021-10-08] MEDS ORDERED: diphenhydrAMINE Capsule 25 MG CAP PO PRN (21:43)
[2021-10-08] MEDS ORDERED: MEPERIDINE HCL 50 MG/ML CARP IV PRN (21:43)
[2021-10-09] MEDS: ACETAMINOPHEN 1000 MG/100 ML IV IV PRN (01:17)
[2021-10-09] MEDS: IBUPROFEN 600 MG TAB PO PRN ×3 (03:29→13:31)
[2021-10-09] MEDS: AMOXICILLIN/CLAVULANATE 875 MG TAB PO SCH ×3 (06:21→21:41)
[2021-10-09] MEDS: oxyCODONE/ACETAMINOPHEN 5mg/325mg TAB PO PRN ×2 (06:24→13:30)
[2021-10-09 06:37] LABS: Basophils # (auto) 0.01 K/uL (0-0.2); Basophils % (auto) 0.1 %; Eosinophils # (auto) 0.02 K/uL (0-0.5); Eosinophils % (auto) 0.2 %; Hematocrit (blood only) 28.3 % (37-47); Hemoglobin 9.2 g/dL (12.0-16.0); Immature Granulocytes # (auto) 0.03 K/uL (0.00-0.02); Immature Granulocytes % (auto) 0.4 %; Lymphocytes # (auto) 1.68 K/uL (1.2-3.4); Lymphocytes % (auto) 19.8 %; Mean Corpuscular Hemoglobin 29.5 pg (25-34); Mean Corpuscular Hgb Conc 32.5 g/dL (32-36); Mean Corpuscular Volume 90.7 fL (80-100); Mean Platelet Volume 9.7 fL (7.4-10.4); Monocytes # (auto) 0.75 K/uL (0.11-0.59); Monocytes % (auto) 8.9 %; Neutrophils # (auto) 5.98 K/uL (1.4-6.5); Neutrophils % (auto) 70.6 %; Platelet Count 203 K/uL (130-400); RDW Coefficient of Variation 15.6 % (11.5-14.5); Red Blood Count 3.12 M/uL (4.2-5.4); White Blood Count 8.47 K/uL (4.8-10.8)
[2021-10-09 06:56] LABS: Albumin Globulin Ratio 1.1 (0.9-2); Albumin Level 2.8 gm/dl (3.4-5.0); Bilirubin,Total 0.2 mg/dl (0.2-1.0); Calcium 7.5 mg/dl (8.5-10.1); Creatinine Clr Calc Pharmacy 187.9 ml/min; Est GFR (African American) 136.7 ml/min; Est GFR (Non-African American) 117.9 ml/min; Globulin 2.5 gm/dl (2.5-4.0); Potassium 4.4 mmol/L (3.5-5.1); Total Protein 5.3 gm/dl (6.0-8.3)
[2021-10-09] MEDS: DOCUSATE SODIUM 100 MG CAP PO SCH ×2 (08:47→21:10)
[2021-10-09] MEDS: FERROUS SULFATE 325 MG TAB PO SCH (08:47)
[2021-10-09] MEDS: PRENATAL VITAMIN 1 TAB PO SCH (08:48)
[2021-10-09] MEDS: LABETALOL HCL 100 MG TAB PO SCH ×2 (08:48→21:10)
[2021-10-09] MEDS: LORATADINE 10 MG TAB PO SCH (08:48)
[2021-10-09] MEDS: SIMETHICONE 80 MG CHEW PO SCH ×4 (08:48→21:10)
--- NOTE | 2021-10-09 08:57 | Obstetrical Progress Note ---
Date of Service October 09, 2021 Assessment & Plan Admission and Anticipated Discharge Date Admission Date: October 06, 2021 Subjective Patient is seen and examined. She feels well, no complaints. Off IV Magnesium since 2 am Pain is under control with oral meds. Ambulating without dizziness Voiding without difficulty Tolerating regular diet with out N&V Flatus + BM neg Bleeding is minimal No WINSTON/ Change in vision/ fever/ chills/ CP/ SOB/ N&V/ Leg pain Breast and bottle feeding without problems Vital Signs Temp Pulse Resp BP Pulse Ox 10/09/21 02:30 36.6 C 18 10/09/21 02:27 83 139/67 10/09/21 02:25 18 10/09/21 02:17 70 98 10/09/21 02:12 73 98 10/09/21 02:07 73 98 10/09/21 02:02 80 99 10/09/21 01:57 81 98 10/09/21 01:55 83 84 L 10/09/21 01:52 80 97 10/09/21 01:47 78 95 10/09/21 01:42 91 H 95 10/09/21 01:39 85 86 L 10/09/21 01:37 84 94 10/09/21 01:33 79 89 L 10/09/21 01:32 83 99 10/09/21 01:27 76 98 10/09/21 01:22 76 97 10/09/21 01:20 73 120/56 L 10/09/21 01:17 74 98 10/09/21 01:15 16 10/09/21 01:12 82 97 10/09/21 01:07 73 98 10/09/21 01:02 77 97 10/09/21 00:57 75 100 10/09/21 00:52 77 97 10/09/21 00:47 76 97 10/09/21 00:42 81 99 10/09/21 00:41 82 86 L 10/09/21 00:37 78 95 10/09/21 00:32 77 96 10/09/21 00:27 77 96 10/09/21 00:22 75 95 10/09/21 00:19 79 94 10/09/21 00:18 80 118/59 L 10/09/21 00:17 76 95 10/09/21 00:15 36.9 C 79 16 94 10/09/21 00:12 77 95 10/09/21 00:07 76 97 10/09/21 00:02 74 97 22 23:57 77 98 22 23:52 77 98 22 23:47 76 98 22 23:42 77 98 10/08/21 23:37 76 98 10/08/21 23:32 74 99 10/08/21 23:27 74 98 22 23:22 78 99 10/08/21 23:17 77 96 10/08/21 23:12 71 97 10/08/21 23:11 70 135/71 22 23:10 71 16 97 10/08/21 23:07 73 97 10/08/21 23:02 75 96 22 22:57 79 97 10/08/21 22:52 75 96 10/08/21 22:47 75 96 10/08/21 22:42 76 95 10/08/21 22:37 76 95 10/08/21 22:32 75 96 10/08/21 22:27 73 96 10/08/21 22:22 76 97 10/08/21 22:17 77 99 10/08/21 22:12 78 99 10/08/21 22:09 80 93 10/08/21 22:07 82 97 22 22:02 80 97 22 22:01 71 118/68 10/08/21 22:00 75 18 96 22 21:57 81 99 22 21:52 73 98 22 21:47 77 97 2122 21:42 77 98 2122 21:37 78 98 2122 21:32 78 99 042122 21:31 77 18 131/65 042122 21:27 82 98 2122 21:22 77 98 2122 21:20 18 99 2122 21:17 80 98 2122 21:12 76 100 22 21:07 80 100 042122 21:02 82 100 042122 20:57 78 100 0422/22 0422/22 0422/22 Range/Units 06:16 06:16 06:16 WBC 8.47 (4.8-10.8) K/uL RBC 3.12 L (4.2-5.4) M/uL Hgb 9.2 L (12.0-16.0) g/dL Hct 28.3 L (37-47) % MCV 90.7 (80-100) fL MCH 29.5 (25-34) pg MCHC 32.5 (32-36) g/dL RDW Std Deviation 51.0 H (36.4-46.3) fL RDW Coeff of Steve 15.6 H (11.5-14.5) % Plt Count 203 (130-400) K/uL MPV 9.7 (7.4-10.4) fL Immature Gran % (Auto) 0.4 % Neut % (Auto) 70.6 % Lymph % (Auto) 19.8 % [place] % (Auto) 8.9 % Eos % (Auto) 0.2 % Baso % (Auto) 0.1 % Neut # (Auto) 5.98 (1.4-6.5) K/uL Lymph # (Auto) 1.68 (1.2-3.4) K/uL [place] # (Auto) 0.75 H (0.11-0.59) K/uL Eos # (Auto) 0.02 (0-0.5) K/uL Baso # (Auto) 0.01 (0-0.2) K/uL Immature Gran # (Auto) 0.03 H (0.00-0.02) K/uL Sodium 135 L (136-145) mmol/L Potassium 4.4 (3.5-5.1) mmol/L Chloride 104 (98-107) mmol/L Carbon Dioxide 27 (21-32) mmol/L Anion Gap 4 (3-11) BUN 9 (6-23) mg/dl Creatinine 0.59 L (0.6-1.2) mg/dl Est Cr Clr Drug Dosing 187.9 ml/min Est GFR ( Amer) 136.7 ml/min Est GFR (Non-Af Amer) 117.9 ml/min BUN/Creatinine Ratio (10-20) Glucose (70-99(Fasting)) mg/dl Fasting Glucose 68 L (70-99) mg/dl Calcium 7.5 L (8.5-10.1) mg/dl Total Bilirubin 0.2 (0.2-1.0) mg/dl Direct Bilirubin 0.0 (0-0.2) mg/dl AST 230 H (13-39) U/L ALT 435 H (7-52) U/L Alkaline Phosphatase 79 (34-104) U/L Lactate Dehydrogenase 240 (86-244) U/L Total Protein 5.3 L (6.0-8.3) gm/dl Albumin 2.8 L (3.4-5.0) gm/dl Globulin 2.5 (2.5-4.0) gm/dl Albumin/Globulin Ratio 1.1 (0.9-2) Blood Type Antibody Screen Screen (Negative) Crossmatch 10/09/21 10/08/21 10/08/21 Range/Units 06:16 09:22 09:22 WBC 12.49 H (4.8-10.8) K/uL RBC 3.37 L (4.2-5.4) M/uL Hgb 10.1 L (12.0-16.0) g/dL Hct 30.0 L (37-47) % MCV 89.0 (80-100) fL MCH 30.0 (25-34) pg MCHC 33.7 (32-36) g/dL RDW Std Deviation 49.4 H (36.4-46.3) fL RDW Coeff of Steve 15.3 H (11.5-14.5) % Plt Count 223 (130-400) K/uL MPV 10.4 (7.4-10.4) fL Immature Gran % (Auto) 0.2 % Neut % (Auto) 85.7 % Lymph % (Auto) 7.6 % [place] % (Auto) 6.5 % Eos % (Auto) 0.0 % Baso % (Auto) 0.0 % Neut # (Auto) 10.70 H (1.4-6.5) K/uL Lymph # (Auto) 0.95 L (1.2-3.4) K/uL [place] # (Auto) 0.81 H (0.11-0.59) K/uL Eos # (Auto) 0.00 (0-0.5) K/uL Baso # (Auto) 0.00 (0-0.2) K/uL Immature Gran # (Auto) 0.03 H (0.00-0.02) K/uL Sodium (136-145) mmol/L Potassium (3.5-5.1) mmol/L Chloride (98-107) mmol/L Carbon Dioxide (21-32) mmol/L Anion Gap (3-11) BUN (6-23) mg/dl Creatinine (0.6-1.2) mg/dl Est Cr Clr Drug Dosing ml/min Est GFR ( Amer) ml/min Est GFR (Non-Af Amer) ml/min BUN/Creatinine Ratio (10-20) Glucose (70-99(Fasting)) mg/dl Fasting Glucose (70-99) mg/dl Calcium (8.5-10.1) mg/dl Total Bilirubin (0.2-1.0) mg/dl Direct Bilirubin (0-0.2) mg/dl AST (13-39) U/L ALT (7-52) U/L Alkaline Phosphatase (34-104) U/L Lactate Dehydrogenase 295 H (86-244) U/L Total Protein (6.0-8.3) gm/dl Albumin (3.4-5.0) gm/dl Globulin (2.5-4.0) gm/dl Albumin/Globulin Ratio (0.9-2) Blood Type O Negative Antibody Screen NEGATIVE Screen Negative (Negative) Crossmatch 10/08/21 10/06/21 Range/Units 09:22 19:26 WBC (4.8-10.8) K/uL RBC (4.2-5.4) M/uL Hgb (12.0-16.0) g/dL Hct (37-47) % MCV (80-100) fL MCH (25-34) pg MCHC (32-36) g/dL RDW Std Deviation (36.4-46.3) fL RDW Coeff of Steve (11.5-14.5) % Plt Count (130-400) K/uL MPV (7.4-10.4) fL Immature Gran % (Auto) % Neut % (Auto) % Lymph % (Auto) % [place] % (Auto) % Eos % (Auto) % Baso % (Auto) % Neut # (Auto) (1.4-6.5) K/uL Lymph # (Auto) (1.2-3.4) K/uL [place] # (Auto) (0.11-0.59) K/uL Eos # (Auto) (0-0.5) K/uL Baso # (Auto) (0-0.2) K/uL Immature Gran # (Auto) (0.00-0.02) K/uL Sodium 134 L (136-145) mmol/L Potassium 4.7 D (3.5-5.1) mmol/L Chloride 104 (98-107) mmol/L Carbon Dioxide 24 (21-32) mmol/L Anion Gap 6 (3-11) BUN 7 (6-23) mg/dl Creatinine 0.60 (0.6-1.2) mg/dl Est Cr Clr Drug Dosing 184.8 ml/min Est GFR ( Amer) 135.9 ml/min Est GFR (Non-Af Amer) 117.3 ml/min BUN/Creatinine Ratio 11.7 (10-20) Glucose 88 (70-99(Fasting)) mg/dl Fasting Glucose 88 (70-99) mg/dl Calcium 7.1 L (8.5-10.1) mg/dl Total Bilirubin 0.3 (0.2-1.0) mg/dl Direct Bilirubin 0.1 (0-0.2) mg/dl AST 323 H (13-39) U/L ALT 487 H (7-52) U/L Alkaline Phosphatase 79 (34-104) U/L Lactate Dehydrogenase (86-244) U/L Total Protein 5.6 L (6.0-8.3) gm/dl Albumin 2.9 L (3.4-5.0) gm/dl Globulin 2.7 (2.5-4.0) gm/dl Albumin/Globulin Ratio 1.1 (0.9-2) Blood Type Antibody Screen Screen (Negative) Crossmatch See Detail PE: General: Alert, orientedx3, NAD CVS: S1S2 RRR Lungs; CTAB Abd: soft, NT, ND, BS+, fundus firm, below Umbilicus Incision/ Dressing: Clean, dry, intact Perineum intact, Lochia rubra minimal Ext; NT, no edema AP: 36 yo s/p C Section, pod# 1 VSS Afebrile doing well, off magnesium this am LFT's improving, consult GI Continue routine postop care Encourage ambulation, PO intake All questions were answered Results & Data ([facility]) Vital Signs (Past 12 Hours) Vital Signs Temp Pulse Resp BP Pulse Ox 10/09/21 02:30 36.6 C 18 10/09/21 02:27 83 139/67 10/09/21 02:25 18 10/09/21 02:17 70 98 10/09/21 02:12 73 98 10/09/21 02:07 73 98 10/09/21 02:02 80 99 10/09/21 01:57 81 98 10/09/21 01:55 83 84 L 10/09/21 01:52 80 97 10/09/21 01:47 78 95 10/09/21 01:42 91 H 95 10/09/21 01:39 85 86 L 10/09/21 01:37 84 94 10/09/21 01:33 79 89 L 10/09/21 01:32 83 99 10/09/21 01:27 76 98 10/09/21 01:22 76 97 10/09/21 01:20 73 120/56 L 10/09/21 01:17 74 98 10/09/21 01:15 16 10/09/21 01:12 82 97 10/09/21 01:07 73 98 10/09/21 01:02 77 97 10/09/21 00:57 75 100 10/09/21 00:52 77 97 10/09/21 00:47 76 97 10/09/21 00:42 81 99 10/09/21 00:41 82 86 L 10/09/21 00:37 78 95 10/09/21 00:32 77 96 10/09/21 00:27 77 96 10/09/21 00:22 75 95 10/09/21 00:19 79 94 10/09/21 00:18 80 118/59 L 10/09/21 00:17 76 95 10/09/21 00:15 36.9 C 79 16 94 10/09/21 00:12 77 95 10/09/21 00:07 76 97 10/09/21 00:02 74 97 10/08/21 23:57 77 98 10/08/21 23:52 77 98 10/08/21 23:47 76 98 22 23:42 77 98 [id number] 23:37 76 98 2122 23:32 74 99 2122 23:27 74 98 22 23:22 78 99 22 23:17 77 96 22 23:12 71 97 22 23:11 70 135/71 22 23:10 71 16 97 22 23:07 73 97 22 23:02 75 96 22 22:57 79 97 22 22:52 75 96 22 22:47 75 96 22 22:42 76 95 10/08/21 22:37 76 95 22 22:32 75 96 10/08/21 22:27 73 96 10/08/21 22:22 76 97 10/08/21 22:17 77 99 10/08/21 22:12 78 99 10/08/21 22:09 80 93 10/08/21 22:07 82 97 22 22:02 80 97 10/08/21 22:01 71 118/68 0422 22:00 75 18 96 0422 21:57 81 99 22 21:52 73 98 22 21:47 77 97 22 21:42 77 98 22 21:37 78 98 22 21:32 78 99 22 21:31 77 18 131/65 [id number] 21:27 82 98 2122 21:22 77 98 042122 21:20 18 99 042122 21:17 80 98 042122 21:12 76 100 042122 21:07 80 100 042122 21:02 82 100 042122 20:57 78 100
--- NOTE | 2021-10-09 09:45 | Gastrointestinal Consultation ---
Date of Consultation October 09, 2021 Assessment & Plan (1) Fatty liver: 36 year old female, POD 1, , with history of fatty liver, cholestasis in 2019 admitted for inductionof labor due to preeclampsia. GI was asked to evaluate for elevated LFTs. Blood pressure, coags, platelets WNL. She has history of cholestasis of and does have pruritus this but normal bile salts reported. Could be secondary to eeclampsia and would except her liver enzymes to trend down with time ABD US Hepatic duplex Trend liver function tests Full viral serology to be ordered Please start ursodiol for persistent pruritus, can use 500 mg twice daily OP GI follow up for management of fatty liver Consider outpatient fibroscan Thank you for allowing us to participate in the care of this patient. Please call with any acute changes, questions or concerns. Please see addendum below with additional recommendation from my supervising physician. Supervising Physician Co-Signing Physician Notes I performed a history and physical examination of the patient today, including specifically on physical exam - soft abdomen. I have discussed the patient's management with the advanced practitioner. Please refer to the nurse practitioner's note for the documented findings and plan of care. Hepatocellular pattern of liver injury with Preeclampsia, now and doing well, no HELLP. Likely related to Preeclampsia. LFTs trending down which is good sign. Sono with no Budd Chiari. Monitor LFTs. Obtain viral hepatitis work up including HSV and EBV. Check Glucose level, Uric acid and Ammonia level. No signs of acute fatty liver of . If LFTs continue to trend down then we can follow up with the patient as OP in 2 weeks. Recall if needed. History of Present Illness Reason for Consultation: elevated LFTs Requesting Physician: Anabela Attending Physician: Madi Peñaloza MD History of Present Illness 36 year old female G2, P2, admitted for induction of labor for preeclampsia with severe features, on IV magnesium seizure prophylaxis, elevated liver enzymes and worsening since admission s/p yesterday. GI asked to evaluate for elevated LFTs. Chart review indicates similar presentation in 2019 at which time she follows up with hepatology as an OP. in 2019, developed pruritus, diagnosed with cholestasis of - started on ursodiol, then delivered, stopped ursodiol. Suggests she developed pruritus again this around 30 weeks but outpatient bile salts were tested and negative. The pruritic has persisted and worsened. Notes she still has this. Denies abd pain. No nausea, vomiting. No GERD. Tolerating PO. No change in bowel habits. Denies black or bloody stools or emesis. No fever, chills, CP, SOB. Awake, alert, oriented, no asterixis or jaundice. BP 139/67 PLT 203 INR 0.9 TB 0.2 AST 230 ALT 435 ALKP 79 LB 2020: LIVER, BIOPSY: LIVER PARENCHYMA WITH VERY MINOR STEATOSIS (SEE COMMENT)COMMENT: The liver biopsy shows a subcapsular sample of liver parenchyma. Normal liver architecture is present. The portal triads are relatively normal with scattered mild chronic inflammation. No plasma cells are seen. Macrovesicular steatosis is present but is exceptionally mild (less than 5%). Fibrosis is unable to be determined due to the sample being subcapsular. Overall, the biopsy is relatively unremarkable with just very mild chronic inflammation and rare steatosis. Clinical correlation required. This case was reviewed intra-departmentally with agreement to the above diagnosis. ABD US 2020: Cholelithiasis and gallbladder sludge. Mild gallbladder distention. No gallbladder wall thickening. Unable to assess for sonographic Starr sign. If clinically indicated, a hepatobiliary scan could be obtained. CTAP 2020: LIVER: Unremarkable.BILE DUCTS: Unremarkable.: Cholelithiasis. PANCREAS: Unremarkable. MRI 2020: hepatic steatosis, cholelithiasis ABD US 2020: . Cholelithiasis without acute cholecystitis. Hepatic steatosis with 2.0 x 1.4 x 1.4 cm mass within the periphery of the left lobe or adjacent to it. Would further characterize with MRI. EGD: none Colonoscopy: none Family history of GI malignancy: none Family history of liver disease: aunt with CARD cirrhosis Allergies Allergy/AdvReac Type Severity Reaction Status Date / Time No Known Allergies Allergy Verified 01/20/20 15:52 Home Medications Medication Instructions Recorded Confirmed Type escitalopram oxalate 10 mg tablet 10 mg PO DAILY 10/06/21 10/06/21 History (Lexapro) iron,carbonyl 65 mg-vitamin C 125 1 tab PO BID 10/06/21 10/06/21 History mg tablet,delayed release (Vitron-C) loratadine 10 mg tablet (Claritin) 10 mg PO DAILY 10/06/21 10/06/21 History magnesium 200 mg tablet 400 mg PO DAILY 10/06/21 10/06/21 History prenat.vits,archie,ofk-hyfq-eufse 1 tab PO DAILY 10/06/21 10/06/21 History amoxicillin 875 mg tablet 875 mg PO Q8H #20 tab 10/09/21 Rx Patient History Medical History Cholestasis during Polycystic disease, ovaries Surgical History History of tonsillectomy Social History Smoking Status: Former smoker Second Hand Exposure: No; Hx Alcohol Use: Yes Alcohol type: wine Hx Substance Use: No Preferred Language: Azeri Communication Ability: Effective Electronic Maintenance Supervisor Required: No Beliefs That Will Affect Care: None marital status: Current Living Situation: Family Current Living Situation Comment: Willi Other Information That Helps Us Care for You: No Feels Safe at Home: Yes Safety Concerns: Feels Safe At This Time Assistive Devices: Oxygen - Continuous Review of Systems Review of Systems: All systems reviewed & are unremarkable except as noted in HPI & below Physical Exam Constitutional: WD/WN, vitals as above Neck: trachea midline, no thyromegaly Respiratory: normal respiratory effort; no respiratory distress and no labored breathing Cardiovascular: Rate/Rhythm: regular rate and regular rhythm Gastrointestinal (Abdomen): Inspection/Auscultation: abdomen normal to inspection and normal bowel sounds; abdomen not distended Results & Data ([facility]) Vital Signs (Past 12 Hours) Vital Signs Temp Pulse Resp BP Pulse Ox 10/09/21 02:30 36.6 C 18 10/09/21 02:27 83 139/67 10/09/21 02:25 18 10/09/21 02:17 70 98 10/09/21 02:12 73 98 10/09/21 02:07 73 98 10/09/21 02:02 80 99 10/09/21 01:57 81 98 10/09/21 01:55 83 84 L 10/09/21 01:52 80 97 10/09/21 01:47 78 95 10/09/21 01:42 91 H 95 10/09/21 01:39 85 86 L 10/09/21 01:37 84 94 10/09/21 01:33 79 89 L 10/09/21 01:32 83 99 10/09/21 01:27 76 98 10/09/21 01:22 76 97 10/09/21 01:20 73 120/56 L 10/09/21 01:17 74 98 10/09/21 01:15 16 10/09/21 01:12 82 97 10/09/21 01:07 73 98 10/09/21 01:02 77 97 10/09/21 00:57 75 100 10/09/21 00:52 77 97 10/09/21 00:47 76 97 10/09/21 00:42 81 99 10/09/21 00:41 82 86 L 10/09/21 00:37 78 95 10/09/21 00:32 77 96 10/09/21 00:27 77 96 10/09/21 00:22 75 95 10/09/21 00:19 79 94 10/09/21 00:18 80 118/59 L 10/09/21 00:17 76 95 10/09/21 00:15 36.9 C 79 16 94 10/09/21 00:12 77 95 10/09/21 00:07 76 97 10/09/21 00:02 74 97 10/08/21 23:57 77 98 10/08/21 23:52 77 98 10/08/21 23:47 76 98 10/08/21 23:42 77 98 10/08/21 23:37 76 98 10/08/21 23:32 74 99 10/08/21 23:27 74 98 10/08/21 23:22 78 99 10/08/21 23:17 77 96 10/08/21 23:12 71 97 10/08/21 23:11 70 135/71 10/08/21 23:10 71 16 97 10/08/21 23:07 73 97 10/08/21 23:02 75 96 10/08/21 22:57 79 97 10/08/21 22:52 75 96 10/08/21 22:47 75 96 10/08/21 22:42 76 95 10/08/21 22:37 76 95 10/08/21 22:32 75 96 10/08/21 22:27 73 96 10/08/21 22:22 76 97 10/08/21 22:17 77 99 10/08/21 22:12 78 99 10/08/21 22:09 80 93 10/08/21 22:07 82 97 10/08/21 22:02 80 97 10/08/21 22:01 71 118/68 10/08/21 22:00 75 18 96 10/08/21 21:57 81 99 10/08/21 21:52 73 98 10/08/21 21:47 77 97 10/08/21 21:42 77 98 10/08/21 21:37 78 98 Laboratory Results 10/09/21 10/09/21 10/09/21 Range/Units 06:16 06:16 06:16 WBC 8.47 (4.8-10.8) K/uL RBC 3.12 L (4.2-5.4) M/uL Hgb 9.2 L (12.0-16.0) g/dL Hct 28.3 L (37-47) % MCV 90.7 (80-100) fL MCH 29.5 (25-34) pg MCHC 32.5 (32-36) g/dL RDW Std Deviation 51.0 H (36.4-46.3) fL RDW Coeff of Steve 15.6 H (11.5-14.5) % Plt Count 203 (130-400) K/uL MPV 9.7 (7.4-10.4) fL Immature Gran % (Auto) 0.4 % Neut % (Auto) 70.6 % Lymph % (Auto) 19.8 % Long % (Auto) 8.9 % Eos % (Auto) 0.2 % Baso % (Auto) 0.1 % Neut # (Auto) 5.98 (1.4-6.5) K/uL Lymph # (Auto) 1.68 (1.2-3.4) K/uL Long # (Auto) 0.75 H (0.11-0.59) K/uL Eos # (Auto) 0.02 (0-0.5) K/uL Baso # (Auto) 0.01 (0-0.2) K/uL Immature Gran # (Auto) 0.03 H (0.00-0.02) K/uL Sodium 135 L (136-145) mmol/L Potassium 4.4 (3.5-5.1) mmol/L Chloride 104 (98-107) mmol/L Carbon Dioxide 27 (21-32) mmol/L Anion Gap 4 (3-11) BUN 9 (6-23) mg/dl Creatinine 0.59 L (0.6-1.2) mg/dl Est Cr Clr Drug Dosing 187.9 ml/min Est GFR ( Amer) 136.7 ml/min Est GFR (Non-Af Amer) 117.9 ml/min BUN/Creatinine Ratio (10-20) Glucose (70-99(Fasting)) mg/dl Fasting Glucose 68 L (70-99) mg/dl Calcium 7.5 L (8.5-10.1) mg/dl Total Bilirubin 0.2 (0.2-1.0) mg/dl Direct Bilirubin 0.0 (0-0.2) mg/dl AST 230 H (13-39) U/L ALT 435 H (7-52) U/L Alkaline Phosphatase 79 (34-104) U/L Lactate Dehydrogenase 240 (86-244) U/L Total Protein 5.3 L (6.0-8.3) gm/dl Albumin 2.8 L (3.4-5.0) gm/dl Globulin 2.5 (2.5-4.0) gm/dl Albumin/Globulin Ratio 1.1 (0.9-2) Blood Type Antibody Screen Screen (Negative) Crossmatch 10/09/21 10/08/21 10/08/21 Range/Units 06:16 09:22 09:22 WBC (4.8-10.8) K/uL RBC (4.2-5.4) M/uL Hgb (12.0-16.0) g/dL Hct (37-47) % MCV (80-100) fL MCH (25-34) pg MCHC 33.7 (32-36) g/dL RDW Std Deviation (36.4-46.3) fL RDW Coeff of Steve (11.5-14.5) % Plt Count (130-400) K/uL MPV (7.4-10.4) fL Immature Gran % (Auto) % Neut % (Auto) % Lymph % (Auto) % Long % (Auto) % Eos % (Auto) % Baso % (Auto) % Neut # (Auto) (1.4-6.5) K/uL Lymph # (Auto) (1.2-3.4) K/uL Long # (Auto) (0.11-0.59) K/uL Eos # (Auto) (0-0.5) K/uL Baso # (Auto) (0-0.2) K/uL Immature Gran # (Auto) (0.00-0.02) K/uL Sodium (136-145) mmol/L Potassium (3.5-5.1) mmol/L Chloride (98-107) mmol/L Carbon Dioxide (21-32) mmol/L Anion Gap (3-11) BUN (6-23) mg/dl Creatinine (0.6-1.2) mg/dl Est Cr Clr Drug Dosing ml/min Est GFR ( Amer) ml/min Est GFR (Non-Af Amer) ml/min BUN/Creatinine Ratio (10-20) Glucose (70-99(Fasting)) mg/dl Fasting Glucose (70-99) mg/dl Calcium (8.5-10.1) mg/dl Total Bilirubin (0.2-1.0) mg/dl Direct Bilirubin (0-0.2) mg/dl AST (13-39) U/L ALT (7-52) U/L Alkaline Phosphatase (34-104) U/L Lactate Dehydrogenase 295 H (86-244) U/L Total Protein (6.0-8.3) gm/dl Albumin (3.4-5.0) gm/dl Globulin (2.5-4.0) gm/dl Albumin/Globulin Ratio (0.9-2) Blood Type O Negative Antibody Screen NEGATIVE Screen Negative (Negative) Crossmatch 10/08/21 10/06/21 Range/Units 09:22 19:26 WBC (4.8-10.8) K/uL RBC (4.2-5.4) M/uL Hgb (12.0-16.0) g/dL Hct (37-47) % MCV (80-100) fL MCH (25-34) pg MCHC (32-36) g/dL RDW Std Deviation (36.4-46.3) fL RDW Coeff of Steve (11.5-14.5) % Plt Count (130-400) K/uL MPV (7.4-10.4) fL Immature Gran % (Auto) % Neut % (Auto) % Lymph % (Auto) % Long % (Auto) % Eos % (Auto) % Baso % (Auto) % Neut # (Auto) (1.4-6.5) K/uL Lymph # (Auto) (1.2-3.4) K/uL Long # (Auto) (0.11-0.59) K/uL Eos # (Auto) (0-0.5) K/uL Baso # (Auto) (0-0.2) K/uL Immature Gran # (Auto) (0.00-0.02) K/uL Sodium 134 L (136-145) mmol/L Potassium 4.7 D (3.5-5.1) mmol/L Chloride 104 (98-107) mmol/L Carbon Dioxide 24 (21-32) mmol/L Anion Gap 6 (3-11) BUN 7 (6-23) mg/dl Creatinine 0.60 (0.6-1.2) mg/dl Est Cr Clr Drug Dosing 184.8 ml/min Est GFR ( Amer) 135.9 ml/min Est GFR (Non-Af Amer) 117.3 ml/min BUN/Creatinine Ratio 11.7 (10-20) Glucose 88 (70-99(Fasting)) mg/dl Fasting Glucose 88 (70-99) mg/dl Calcium 7.1 L (8.5-10.1) mg/dl Total Bilirubin 0.3 (0.2-1.0) mg/dl Direct Bilirubin 0.1 (0-0.2) mg/dl AST 323 H (13-39) U/L ALT 487 H (7-52) U/L Alkaline Phosphatase 79 (34-104) U/L Lactate Dehydrogenase (86-244) U/L Total Protein 5.6 L (6.0-8.3) gm/dl Albumin 2.9 L (3.4-5.0) gm/dl Globulin 2.7 (2.5-4.0) gm/dl Albumin/Globulin Ratio 1.1 (0.9-2) Blood Type Antibody Screen Screen (Negative) Crossmatch See Detail
--- NOTE | 2021-10-09 12:02 | Ultrasound Report ---
US duplex portal hepatic veins HISTORY: 36 years-old Female elevated lfts, preeclampsia, delievered yesterday acutely elevated LFTs with recent COMPARISON: CTA of the chest 07/16/2015 TECHNIQUE: Multiple real-time sonographic images of the hepatic vascular structures were obtained ass essing grayscale appearance, color and spectral flow FINDINGS: Patent portal, hepatic and splenic veins. There is hepatopedal flow within the portal vein. IMPRESSION: Normal exam. ACT 112: Negative or not required by law. The above report was generated using voice recognition software. It may contain grammatical, syntax o r spelling errors. Electronically signed by: Davion Anderson M.D. 10/09/2021 12:00 PM
--- NOTE | 2021-10-09 13:12 | Ultrasound Report ---
ABDOMINAL ULTRASOUND, RIGHT UPPER QUADRANT HISTORY: elevated lfts in , hx preeclampsia, ccy. COMPARISON: Abdominal ultrasound 01/07/2020. FINDINGS: Pancreas: The pancreas demonstrates a normal echotexture. Liver: Unremarkable. Gallbladder: The gallbladder is surgically absent. CBD: 5 mm Right kidney: No hydronephrosis. IMPRESSION: 1. No significant abnormality identified within the right upper quadrant. 2. Prior cholecystectomy. ACT 112: Negative or not required by law. Electronically signed by: Darrell De La Cruz M.D. 10/09/2021 1:10 PM
[2021-10-09] MEDS ORDERED: bisacodyL 5 MG TABEC PO SCH (20:00)
[2021-10-09] MEDS: ESCITALOPRAM OXALATE 10 MG TAB PO SCH (21:41)
[2021-10-10] MEDS ORDERED: bisacodyL 10 MG SUPP PR PRN
[2021-10-10] MEDS: IBUPROFEN 600 MG TAB PO PRN ×2 (00:17→08:52)
[2021-10-10] MEDS: AMOXICILLIN/CLAVULANATE 875 MG TAB PO SCH (05:49)
[2021-10-10 06:34] LABS: Hematocrit (blood only) 29.5 % (37-47); Hemoglobin 9.5 g/dL (12.0-16.0)
--- NOTE | 2021-10-10 08:13 | Obstetrical Progress Note ---
Date of Service October 10, 2021 Assessment & Plan (1) Pre-eclampsia during in third trimester, antepartum: BP 134/83 Continue labetalol 100mg BID (2) Elevated liver enzymes: Improving, likely secondary to Preeclsmapsia with severe features. Not HELLP syndrome Hep labs pending Abdo US wnl BP check and possible repeat labs Tuesday in clinic Wound check 1 week 3 and 6 week visit No tylenol Subjective Ambulation: ambulating normally Voiding: no voiding problems Passing Gas:: Yes Diet Tolerance:: regular diet Lochia:: Small Feeding Type:: breast feeding Current Pain Level(1-10): 1 Breast and bottle feeding, pain well controlled. Wants to go home with ibuprofen only. Wants d/c home today Physical Exam Constitutional WD/WN, vitals as above BP 134/83 Respiratory normal respiratory effort, lungs clear to auscultation Cardiovascular RRR, no murmur, no edema Gastrointestinal (Abdomen) normal bowel sounds, soft, nontender, no hepatosplenomegaly incision, clean dry and covered with bandage Results & Data ([facility]) Vital Signs (Past 12 Hours) Vital Signs Temp Pulse Resp BP Pulse Ox 10/09/21 23:35 36.6 C 83 16 134/83 96
[2021-10-10] MEDS: SIMETHICONE 80 MG CHEW PO SCH (08:24)
[2021-10-10] MEDS: FERROUS SULFATE 325 MG TAB PO SCH (08:25)
[2021-10-10] MEDS: DOCUSATE SODIUM 100 MG CAP PO SCH (08:25)
[2021-10-10] MEDS: PRENATAL VITAMIN 1 TAB PO SCH (08:25)
[2021-10-10] MEDS: LABETALOL HCL 100 MG TAB PO SCH (08:54)
[2021-10-10] MEDS: LORATADINE 10 MG TAB PO SCH (09:07)
[2021-10-14 00:52] LABS: CMV IgG Antibody <0.60 U/mL; CMV IgM Antibody <30.00 AU/mL; EBV Virus Capsid Ag IgG Ab >750.00 U/mL; HBSAG NON-REACTIVE (NON-REACTIVE); Hepatitis A Antibody IgM NON-REACTIVE (NON-REACTIVE); Hepatitis B Core Antibody IgM NON-REACTIVE (NON-REACTIVE)
== END 2021-10-10 11:45 | disposition home or self-care (01) | DRG 788 ==
LOC: OPB 15:45 → 4S1 15:46 → 4E2 10-09 03:20